=== PATIENT | male | born 1970 | race Caucasian/White ===

== ENCOUNTER 2019-12-26 14:17 | Inpatient (IN) ==
[2019-12-26 15:07] LABS: Basophils # (auto) 0.02 K/uL (0-0.2); Basophils % (auto) 0.3 %; Eosinophils # (auto) 0.04 K/uL (0-0.5); Eosinophils % (auto) 0.7 %; Hematocrit (blood only) 39.5 % (42-52); Hemoglobin 13.7 g/dL (14.0-18.0); Immature Granulocytes # (auto) 0.02 K/uL (0.00-0.02); Immature Granulocytes % (auto) 0.3 %; Lymphocytes # (auto) 1.53 K/uL (1.2-3.4); Lymphocytes % (auto) 26.6 %; Mean Corpuscular Hemoglobin 30.6 pg (25-34); Mean Corpuscular Hgb Conc 34.7 g/dL (32-36); Mean Corpuscular Volume 88.4 fL (80-100); Mean Platelet Volume 9.4 fL (7.4-10.4); Monocytes # (auto) 0.32 K/uL (0.11-0.59); Monocytes % (auto) 5.6 %; Neutrophils # (auto) 3.83 K/uL (1.4-6.5); Neutrophils % (auto) 66.5 %; Platelet Count 184 K/uL (130-400); RDW Coefficient of Variation 13.5 % (11.5-14.5); RDW Standard Deviation 43.6 fL (36.4-46.3); Red Blood Count 4.47 M/uL (4.7-6.1); White Blood Count 5.76 K/uL (4.8-10.8)
[2019-12-26 15:18] LABS: INR 1.1 (0.9-1.1); Partial Thromboplastin Ratio 0.9; Partial Thromboplastin Time 26.3 Seconds (21.0-31.0); Prothrombin Time 11.5 Seconds (9.0-12.0)
[2019-12-26 15:26] LABS: Alanine Aminotransferase 31 U/L (12-78); Albumin Level 3.9 gm/dl (3.4-5.0); Aspartate Aminotransferase 16 U/L (15-37); BUN Creatinine Ratio 19.8 (10-20); Blood Urea Nitrogen 17 mg/dl (7-18); Calcium 8.6 mg/dl (8.5-10.1); Carbon Dioxide 29 mmol/L (21-32); Chloride 104 mmol/L (98-107); Creatinine Clr Calc Pharmacy 125.8 ml/min; Est GFR (Non-African American) 103.5; Glucose 164 mg/dl (70-99); Magnesium 1.7 mg/dl (1.8-2.4); Potassium 3.6 mmol/L (3.5-5.1); Sodium 139 mmol/L (136-145)
[2019-12-26 15:31] LABS: Albumin Globulin Ratio 1.1 (0.9-2); Alkaline Phosphatase 66 U/L (45-117); Bilirubin,Total 0.8 mg/dl (0.2-1); Globulin 3.5 gm/dl (2.5-4.0); Total Protein 7.4 gm/dl (6.4-8.2); Troponin I < 0.015 ng/ml (0-0.045)
[2019-12-26] MEDS ORDERED: OPTIRAY 320 125ml IV ONE (16:01)
--- NOTE | 2019-12-26 16:34 | CT Scan Report ---
CT OF THE HEAD WITHOUT CONTRAST CLINICAL HISTORY: Stroke evaluation. Fall. COMPARISON STUDY: No previous studies for comparison. CT DOSE: 1135.61 mGy.cm TECHNIQUE: Helical axial images of the head were obtained without IV contrast. Automated exposure con trol was utilized for the study. A dose lowering technique was utilized adhering to the principles o f ALARA. FINDINGS: No acute intracranial hemorrhage, midline shift or mass effect is present. Ventricular syst em is unremarkable. The basilar cisterns are patent. There are no extra axial collections. Mild white matter hypodensities are present. In addition, there is a 2 x 0.7 cm hypodensity within the left cor yuni radiata which may involve a small portion of the body of the left caudate nucleus. This is shown on axial image 16 of 28. There are no significant calvarial abnormalities. IMPRESSION: 1. No acute intracranial hemorrhage. 2. 2 x 0.7 cm hypodensity within the left kate radiata which favors an acute to subacute infarct. N o mass effect. This could be assessed with an MRI of the brain if indicated. Findings discussed with Dr. Bird at time of dictation. ACT 112: Negative or not required by law. Electronically signed by: Paramjit Sloan M.D. 12/26/2019 4:33 PM
--- NOTE | 2019-12-26 16:44 | CT Scan Report ---
CT ANGIOGRAPHY OF THE NECK WITH CONTRAST CLINICAL HISTORY: Stroke evaluation. COMPARISON STUDY: No previous studies for comparison. Technique: CT angiography of the carotid and vertebral arteries was obtained using [employer] 320 IV and 3D reconstruction on an independent workstation. NASCET criteria was utilized. Automated exposure c ontrol was utilized for the study. A dose lowering technique was utilized adhering to the principles of ALARA. Findings: The left vertebral artery is dominant. There is no stenosis within the bilateral vertebral arteries. No dissection is noted. Note is made of moderate noncalcified plaque within the distal left common carotid artery without significant stenosis. There is mild calcified and noncalcified plaque within the proximal left internal carotid artery without stenosis. No intraluminal thrombus is identi fied. No stenosis within the right common carotid or cervical internal carotid artery is noted. The C TA of the head will be reported separately. IMPRESSION: 1. Mild to moderate noncalcified plaque within the distal left common carotid and proximal left inter nal carotid arteries without stenosis. 2. No dissection. 3. Patent bilateral vertebral arteries. ACT 112: Negative or not required by law. Electronically signed by: Paramjit Sloan M.D. 12/26/2019 4:43 PM
--- NOTE | 2019-12-26 16:48 | CT Scan Report ---
CTA ANGIOGRAPHY OF THE HEAD CLINICAL HISTORY: Stroke evaluation. COMPARISON STUDY: No previous studies for comparison. TECHNIQUE: Helical axial images of the head were obtained following uneventful intravenous administr ation of Optiray 320. Sagittal and coronal reconstructions were viewed as well as maximal intensity p rojections on an independent 3-D workstation. Automated exposure control was utilized for the study. A dose lowering technique was utilized adhering to the principles of ALARA. FINDINGS: Please note that the head CT will be reported separately. A 2 cm hypodensity within the lef t kate radiata is better depicted on the head CT. The ventricular system is normal. No acute intrac ranial hemorrhage, midline shift or mass effect is present. The bilateral M1, M2, A1 and A2 segments are patent. No intracranial aneurysm is identified. There is no central vessel occlusion. History cir culation is intact. IMPRESSION: 1. No central vessel occlusion. Patent intracranial vessels. 2. 2 cm hypodensity within the left kate radiata which favors an acute to subacute infarct, better depicted on head CT. ACT 112: Negative or not required by law. Electronically signed by: Paramjit Sloan M.D. 12/26/2019 4:46 PM
[2019-12-26] MEDS ORDERED: PHARMACIST DISCHARGE MED REC CONSULT PRN (18:26)
[2019-12-26] MEDS ORDERED: ACETAMINOPHEN 325 MG TAB PO PRN (18:26)
--- NOTE | 2019-12-26 18:29 | History & Physical Report ---
Date of Service December 26, 2019 Assessment & Plan (1) CVA (cerebral vascular accident): - Admit to med surg with tele - CT of the head reviewed showing 2 x 0.7 cm hypodensity within the left kate radiata which favors acute to subacute infarct - Stroke order set completed - PT/OT consults - Speech therapy and dysphagia screening - Neuro consulted -Dr. Fritz - Neuro checks per protocol - Check A1C and lipid panel with am labs - Checking MRI wo contrast - CT angio neck showed moderate noncalcified plaque within the distal left common carotid and proximal left internal carotid arteries without stenosis - UA negative (2) Type 2 diabetes mellitus: - Checking A1C and lipid panel with am labs - Continue glargine 12 U HS, ISS with accuchecks achs - Allow diet after passes dysphagia eval (3) Diabetic peripheral neuropathy: - Cont gabapentin 300 mg HS (4) Hypertension: - Allow for permissive htn - Will hold lisinopril/hctz DVT ppx: - teds, scds CODE: Full Dispo: From home, likely to remain in the hospital x 1-2 days History of Present Illness Primary Care Provider: Amauri Null DO This is a 48 yo M with PMHx of HTN, DM II, tobacco use with cigars once weekly, peripheral neuropathy, obesity who presents with left sided weakness which began yesterday afternoon around 3 PM. He noticed that his boot turner strength was poor, unsteady gait, and by evening felt that he was not able to speak nearly at all. He came directly home from work and went to sleep. He lives at home with his mother who is present at bedside today. She reports having to wake him up around 830 and that he was on able to speak without slowed and slurred speech. He had difficulty getting up and out of bed today and thus she brought him to the ER. He reports his symptoms have improved since waking up today and that he is able to move his arm and his leg without much difficulty but feels weakness compared to his baseline. His speech is slowed but he is able to make full complete sentences, he occasionally has word finding issues, no word salad. No changes in vision, no headache, and no other acute complaints. Allergies Allergy/AdvReac Type Severity Reaction Status Date / Time No Known Allergies Allergy Verified 12/26/19 15:48 Home Medications Home Medications Medication Instructions Recorded Confirmed Type esomeprazole magnesium 20 mg 20 mg PO DAILY 08/16/19 12/26/19 History capsule,delayed release ibuprofen 200 mg capsule 200 - 400 mg PO Q6H PRN 08/16/19 12/26/19 History multivitamin 1 tab PO DAILY 08/16/19 12/26/19 History blood sugar diagnostic #100 ea 09/23/19 12/22/19 Rx 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 meter #1 ea 09/23/19 12/22/19 Rx lancets 33 gauge #100 ea 09/23/19 12/22/19 Rx lisinopril 20 1 tab PO DAILY #30 tab 10/21/19 12/26/19 Rx mg-hydrochlorothiazide 25 mg tablet BD Ultra-Fine Mini Pen Needle 31 #100 ea NS 11/10/19 12/22/19 Rx gauge x 3/16" metformin 500 mg tablet,extended 1,000 mg PO BID #120 tab 11/10/19 12/26/19 Rx release 24 hr insulin glargine 100 unit/mL (3 12 unit SUBCUT DAILY #15 ml 11/26/19 12/26/19 Rx mL) subcutaneous pen gabapentin 300 mg capsule 300 mg PO HS #30 cap 12/02/19 12/26/19 Rx duloxetine 30 mg capsule,delayed 30 mg PO DAILY #30 cap 12/22/19 12/26/19 Rx release bismuth subsalicylate 0 mg PO QID PRN 12/26/19 12/26/19 History [Pepto-Bismol] Past Med/Surg History Medical History (Updated 12/26/19 @ 20:14 by Austin Bird) Atypical nevus of back Diabetic peripheral neuropathy Elevated BP without diagnosis of hypertension Hypertension Insomnia Multiple acquired skin tags Paresthesia of both feet Paresthesia of hand, bilateral Sleep apnea (~2009) Type 2 diabetes mellitus Uncontrolled type 2 diabetes mellitus Surgical History History of excision of lesion (09/06/19) Excision of lesion mid back 09/06/19 Dr. Kenney in clinic History of tonsillectomy and adenoidectomy Family History Grandmother (Maternal) Breast cancer Father , Age 64 Heart disease Myocardial infarction Grandfather (Maternal) Prostate cancer Pancreatic cancer Sister Anxiety Brother Heart disease Denies family history of Ovarian cancer Lung cancer Social History Smoking Status: Current some day smoker Tobacco Type: Cigars Cigarettes Per Day: one cigar a week; Do You Dip or Chew Tobacco: No; Hx Alcohol Use: Yes Alcohol type: hard liquor Hx Substance Use: No Preferred Language: Qatari Communication Ability: Effective Visual Impairment: Limited Hearing Ability: Normal [employer] Trader Required: No Beliefs That Will Affect Care: None marital status: Current Living Situation: Parent Current Living Situation Comment: Lives with mom and older brother current occupational status: employed current occupation: [employer] Feels Safe at Home: Yes Safety Concerns: Feels Safe At This Time caffeine: Yes Dental Care, Regularly: No Physical Activity Frequency: Does not Exercise 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 Seatbelt Use: always Sunscreen Use: Yes Do you think of yourself as: straight/heterosexual Sexual Activity: has been sexually active within the last 12 months Assistive Devices: CPAP and Glasses Review of Systems Review of Systems: Constitutional: No fever, sweats or chills, + unsteady gait Eyes: No diplopia, no worsening or blurred vision ENT: normal hearing, no trouble swallowing, + slurred and slowed speech Respiratory: No cough, sputum, dyspnea at rest or on exertion Cardiovascular: No chest pain, tightness or palpitations Abdomen: No pain, nausea, vomiting, diarrhea or constipation Musculoskeletal: No joint pain, calf pain, swelling Neurologic: + LUE and LLE weakness, +unsteady gait, slurred and slowed speech, inability to talk last night has now improved where he can speak in sentances, no numbness/tingling Psychiatric: +depression, recently started cymbalta Skin: No rash or itch Physical Exam Physical Exam: General: awake, alert, no apparent distress Head: Normocephalic, atraumatic ENT: PERRL, EOMI, no pharyngeal exudate, mucous membranes moist Chest: Clear to auscultation, on room air, no adventitious breath sounds Cardiac: Regular rate and rhythm, no murmur, no JVD, normal peripheral pulses, good capillary refill Abdominal: NABS x 4 quadrants, soft, nondistended, nontender to palpation, no rebound or guarding Extremities: Normal inspection, no peripheral edema or erythema, calfs nontender to palpation Psych: Normal mood and affect Neuro: AAO x 3, strength LUE 4/5 vs RUE 5/5, LLE 4/5 vs RLE 5/5, and rated 5/5, slowed rapid alternating movements with left hand vs right, dexterity of fingers slowed with left, shoulder shrug strenght in L<R. negative pronator drift, can complete heel to mcknight testing without issues. speech is slurred at times and slow, no peripheral sensory deficits Constitutional: WD/WN, vitals as above Eyes: normal visual stewart by confrontation and + anicteric sclerae Neck: normal visual inspection and trachea midline Respiratory: normal respiratory effort, lungs clear to auscultation Cardiovascular: Rate/Rhythm: regular rate and regular rhythm Gastrointestinal (Abdomen): Inspection/Auscultation: abdomen not distended Percussion/Palpation: abdomen soft; abdomen nontender Musculoskeletal: Head/Neck/Chest: normocephalic and head atraumatic Neg for peripheral LE edema, + pedal pulses Skin: no rashes, warm and dry Neurologic: awake; not confused Speech / Cognition: + abnormal speech (slight slurring, answers are appropriate) Moving R UE, but sluggish overall Psychiatric: A+Ox3, euthymic affect Lymphatic: Exam as done by Jaquelin Schuler DO Results & Data Results & Data ([facility]) Vital Signs (Past 12 Hours) Vital Signs Temp Pulse Pulse Resp BP BP Pulse Ox 12/26/19 18:03 78 12 132/81 97 12/26/19 16:12 71 12 95 12/26/19 15:50 75 18 95 12/26/19 15:40 90 16 94 12/26/19 15:30 78 15 118/82 95 12/26/19 15:20 85 20 98 12/26/19 15:10 88 16 97 12/26/19 15:00 88 16 133/73 12/26/19 14:50 87 12 12/26/19 14:40 84 13 12/26/19 14:32 81 15 12/26/19 14:30 76 16 148/89 H 12/26/19 14:21 36.4 C L 95 H 17 132/[address] OF THE HEAD WITHOUT CONTRAST CLINICAL HISTORY: Stroke evaluation. Fall. COMPARISON STUDY: No previous studies for comparison. CT DOSE: 1135.61 mGy.cm TECHNIQUE: Helical axial images of the head were obtained without IV contrast. Automated exposure control was utilized for the study. A dose lowering technique was utilized adhering to the principles of ALARA. FINDINGS: No acute intracranial hemorrhage, midline shift or mass effect is present. Ventricular system is unremarkable. The basilar cisterns are patent. There are no extra axial collections. Mild white matter hypodensities are present. In addition, there is a 2 x 0.7 cm hypodensity within the left kate radiata which may involve a small portion of the body of the left caudate nucle us. This is shown on axial image 16 of 28. There are no significant calvarial abnormalities. IMPRESSION: 1. No acute intracranial hemorrhage. 2. 2 x 0.7 cm hypodensity within the left kate radiata which favors an acute to subacute infarct. No mass effect. This could be assessed with an MRI of the brain if indicated. Findings discussed with Dr. Bird at time of dictation. CTA ANGIOGRAPHY OF THE HEAD CLINICAL HISTORY: Stroke evaluation. COMPARISON STUDY: No previous studies for comparison. TECHNIQUE: Helical axial images of the head were obtained following uneventful intravenous administration of Optiray 320. Sagittal and coronal reconstructions were viewed as well as maximal intensity projections on an independent 3-D workstation. Automated exposure control was utilized for the study. A dose lowering technique was utilized adhering to the principles of ALARA. FINDINGS: Please note that the head CT will be reported separately. A 2 cm hypodensity within the left kate radiata is better depicted on the head CT. The ventricular system is normal. No acute intracranial hemorrhage, midline shift or mass effect is present. The bilateral M1, M2, A1 and A2 segments are patent. No intracranial aneurysm is identified. There is no central vessel occlusion. History circulation is intact. IMPRESSION: 1. No central vessel occlusion. Patent intracranial vessels. 2. 2 cm hypodensity within the left kate radiata which favors an acute to subacute infarct, better depicted on head CT. CT ANGIOGRAPHY OF THE NECK WITH CONTRAST CLINICAL HISTORY: Stroke evaluation. COMPARISON STUDY: No previous studies for comparison. Technique: CT angiography of the carotid and vertebral arteries was obtained using Optiray 320 IV and 3D reconstruction on an independent workstation. NASCET criteria was utilized. Automated exposure control was utilized for the study. A dose lowering technique was utilized adhering to the principles of ALARA. Findings: The left vertebral artery is dominant. There is no stenosis within the bilateral vertebral arteries. No dissection is noted. Note is made of moderate noncalcified plaque within the distal left common carotid artery without significant stenosis. There is mild calcified and noncalcified plaque within the proximal left internal carotid artery without stenosis. No intraluminal thrombus is identified. No stenosis within the right common carotid or cervical internal carotid artery is noted. The CTA of the head will be reported separately. IMPRESSION: 1. Mild to moderate noncalcified plaque within the distal left common carotid and proximal left internal carotid arteries without stenosis. 2. No dissection. 3. Patent bilateral vertebral arteries. ECG Additional Comments: 26-DEC-2019 15:07:20 [facility]-EDSTAT ROUTINE RETRIEVAL Normal sinus rhythm Cannot rule out Anterior infarct , age undetermined Abnormal ECG No previous ECGs available 25mm/s 10mm/mV 150Hz 9.0.9 12SL 241 BRAD: 11 Referred by: REFERRED SELF Unconfirmed Vent. rate 77 BPM SC interval 140 ms QRS duration 94 ms QT/QTc 364/411 ms P-R-T axes 46 72 46 Code Status & VTE Plan Code Status Full code - discussed with pt at bedside Supervising Physician Co-Signing Physician Notes Pt seen and examined by me. Denies chest pain or SOB. Tolerating PO without issue. Pt, pt's mother, and nursing all feel that pt's speech and use of R UE are improving since arrival to the ED. Agree with HPI/ROS as noted by PA See above for my exam in PE section Agree with plan as outlined above CVA noted on CT MRI pending No stenosis, but plaques noted on CTA head/neck Neuro c/s Aspirin, plavix DM, states 164 is low for him A1c, lipids pending PG Care Time/CCT Total # of Minutes Spent Total Time Spent with Patient: Total time spent is greater than 50% in coordination of care (as documented) at patient's floor/unit and/or counseling patient: Coding Level of Care Code 12507 Initial Inpt Care Lvl 3 Diagnoses CVA (cerebral vascular accident) I63.9 Type 2 diabetes mellitus E11.9 Diabetic peripheral neuropathy E11.42 Hypertension I10
[2019-12-26] MEDS ORDERED: DEXTROSE 50% 50 ML SYRINGE IV PRN (18:31)
[2019-12-26] MEDS ORDERED: GLUCAGON FOR INJ 1 MG VIAL SQ PRN (18:31)
[2019-12-26] MEDS ORDERED: GLUCOSE 40% GEL 15 GM TUBE PO PRN (18:31)
[2019-12-26] MEDS ORDERED: GLUCOSE 10 TABS/TUBE PO PRN (18:31)
[2019-12-26] MEDS ORDERED: CARBOHYDRATES FOR HYPOGLYCEMIA PO PRN (18:31)
[2019-12-26] MEDS ORDERED: ASPIRIN CHEW 324 MG PO STA (18:39)
[2019-12-26] MEDS ORDERED: CLOPIDOGREL BISULFATE 300 MG TAB PO STA (18:39)
--- NOTE | 2019-12-26 20:13 | Emergency Department Note ---
History of Present Illness General Chief complaint: Stroke/CVA Symptoms Stated complaint: stroke symtoms Time Seen by Provider: 12/26/19 14:30 History of Present Illness Provider complaint: Difficulty speaking Onset (ago): hour(s) (21.5) Maximum Pain Intensity: 5 Current Pain Intensity: 0 Associated symptoms: no fever/chills, no headaches, no nausea/vomiting and no seizure 48-year-old male presents emergency department for strokelike symptoms. Patient reports yesterday at 5 PM he noticed he was having difficulty speaking and right upper extremity weakness. He states he thought that his symptoms were due to his him recently starting Cymbalta yesterday. He denies any falls. He denies any fevers. He denies any seizures. Patient is not on any blood thinners. Home Medications Home Medications Medication Instructions Recorded Confirmed Type esomeprazole magnesium 20 mg 20 mg PO DAILY 08/16/19 12/26/19 History capsule,delayed release ibuprofen 200 mg capsule 200 - 400 mg PO Q6H PRN 08/16/19 12/26/19 History multivitamin 1 tab PO DAILY 08/16/19 12/26/19 History blood sugar diagnostic #100 ea 09/23/19 12/22/19 Rx 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 meter #1 ea 09/23/19 12/22/19 Rx lancets 33 gauge #100 ea 09/23/19 12/22/19 Rx lisinopril 20 1 tab PO DAILY #30 tab 10/21/19 12/26/19 Rx mg-hydrochlorothiazide 25 mg tablet BD Ultra-Fine Mini Pen Needle 31 #100 ea NS 11/10/19 12/22/19 Rx gauge x 3/16" metformin 500 mg tablet,extended 1,000 mg PO BID #120 tab 11/10/19 12/26/19 Rx release 24 hr insulin glargine 100 unit/mL (3 12 unit SUBCUT DAILY #15 ml 11/26/19 12/26/19 Rx mL) subcutaneous pen gabapentin 300 mg capsule 300 mg PO HS #30 cap 12/02/19 12/26/19 Rx duloxetine 30 mg capsule,delayed 30 mg PO DAILY #30 cap 12/22/19 12/26/19 Rx release bismuth subsalicylate 0 mg PO QID PRN 12/26/19 12/26/19 History [Pepto-Bismol] Allergies Allergy/AdvReac Type Severity Reaction Status Date / Time No Known Allergies Allergy Verified 12/26/19 15:48 Past Med/Surg History Medical History (Updated 12/26/19 @ 20:14 by Austin Bird) Atypical nevus of back Diabetic peripheral neuropathy Elevated BP without diagnosis of hypertension Hypertension Insomnia Multiple acquired skin tags Paresthesia of both feet Paresthesia of hand, bilateral Sleep apnea (~2009) Type 2 diabetes mellitus Uncontrolled type 2 diabetes mellitus Surgical History History of excision of lesion (09/06/19) Excision of lesion mid back 09/06/19 Dr. Kenney in clinic History of tonsillectomy and adenoidectomy Family History Grandmother (Maternal) Breast cancer Father , Age 64 Heart disease Myocardial infarction Grandfather (Maternal) Prostate cancer Pancreatic cancer Sister Anxiety Brother Heart disease Denies family history of Ovarian cancer Lung cancer Social History Smoking Status: Current every day smoker Tobacco Type: Cigars Hx Alcohol Use: Yes Alcohol type: beer and hard liquor Hx Substance Use: Yes (recently tried marijuana to sleep ) Preferred Language: Bahraini Communication Ability: Effective Visual Impairment: Limited Hearing Ability: Normal Fingerprinter Required: No marital status: Current Living Situation: Family current occupational status: employed 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[employer] Feels Safe at Home: Yes caffeine: Yes Dental Care, Regularly: No Physical Activity Frequency: Does not Exercise 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 Seatbelt Use: always Sunscreen Use: Yes Do you think of yourself as: straight/heterosexual Sexual Activity: has been sexually active within the last 12 months Review of Systems A total of 10 systems reviewed and were otherwise negative Physical Exam Vital Signs Vital Signs - 24 hr 12/26/19 14:21 12/26/19 14:30 12/26/19 14:32 Temperature 36.4 C L Temperature Source Oral Pulse Rate 95 H 76 81 Pulse Rate [Right Finger] Pulse Rate from SpO2 Sensor Respiratory Rate 17 16 15 Respiratory Effort / Characteristics Respiratory Depth Blood Pressure 132/87 148/89 H Blood Pressure [Right Arm] Blood Pressure Mean 102 101 Blood Pressure Mean [Right Arm] Pulse Oximetry 96 Oxygen Delivery Method Room Air Oxygen Flow Rate Sepsis Recent Fever Within 48 Hours No Sepsis New/Unexplained Change in Mental Status N/A Sepsis Action Taken by Nursing No Action Required 12/26/19 14:40 12/26/19 14:50 12/26/19 15:00 Temperature Temperature Source Pulse Rate 84 87 88 Pulse Rate [Right Finger] Pulse Rate from SpO2 Sensor Respiratory Rate 13 12 16 Respiratory Effort / Characteristics Respiratory Depth Blood Pressure 133/73 Blood Pressure [Right Arm] Blood Pressure Mean 105 Blood Pressure Mean [Right Arm] Pulse Oximetry Oxygen Delivery Method Oxygen Flow Rate Sepsis Recent Fever Within 48 Hours Sepsis New/Unexplained Change in Mental Status Sepsis Action Taken by Nursing 12/26/19 15:10 12/26/19 15:20 12/26/19 15:30 Temperature Temperature Source Pulse Rate 88 85 78 Pulse Rate [Right Finger] Pulse Rate from SpO2 Sensor 87 87 78 Respiratory Rate 16 20 15 Respiratory Effort / Characteristics Respiratory Depth Blood Pressure 118/82 Blood Pressure [Right Arm] Blood Pressure Mean 90 Blood Pressure Mean [Right Arm] Pulse Oximetry 97 98 95 Oxygen Delivery Method Room Air Oxygen Flow Rate 100 Sepsis Recent Fever Within 48 Hours Sepsis New/Unexplained Change in Mental Status Sepsis Action Taken by Nursing 12/26/19 15:40 12/26/19 15:50 12/26/19 16:12 Temperature Temperature Source Pulse Rate 90 75 71 Pulse Rate [Right Finger] Pulse Rate from SpO2 Sensor 87 77 72 Respiratory Rate 16 18 12 Respiratory Effort / Characteristics Respiratory Depth Blood Pressure Blood Pressure [Right Arm] Blood Pressure Mean Blood Pressure Mean [Right Arm] Pulse Oximetry 94 95 95 Oxygen Delivery Method Oxygen Flow Rate Sepsis Recent Fever Within 48 Hours Sepsis New/Unexplained Change in Mental Status Sepsis Action Taken by Nursing 12/26/19 16:20 12/26/19 16:23 12/26/19 16:30 Temperature Temperature Source Pulse Rate 79 73 69 Pulse Rate [Right Finger] Pulse Rate from SpO2 Sensor 77 73 70 Respiratory Rate 22 15 15 Respiratory Effort / Characteristics Respiratory Depth Blood Pressure 132/66 125/73 Blood Pressure [Right Arm] Blood Pressure Mean 81 92 Blood Pressure Mean [Right Arm] Pulse Oximetry 96 95 94 Oxygen Delivery Method Oxygen Flow Rate Sepsis Recent Fever Within 48 Hours Sepsis New/Unexplained Change in Mental Status Sepsis Action Taken by Nursing 12/26/19 16:40 12/26/19 16:50 12/26/19 17:00 Temperature Temperature Source Pulse Rate 69 83 72 Pulse Rate [Right Finger] Pulse Rate from SpO2 Sensor 69 82 74 Respiratory Rate 14 15 14 Respiratory Effort / Characteristics Respiratory Depth Blood Pressure 124/75 Blood Pressure [Right Arm] Blood Pressure Mean 81 Blood Pressure Mean [Right Arm] Pulse Oximetry 95 96 95 Oxygen Delivery Method Oxygen Flow Rate Sepsis Recent Fever Within 48 Hours Sepsis New/Unexplained Change in Mental Status Sepsis Action Taken by Nursing 12/26/19 17:10 12/26/19 17:20 12/26/19 17:30 Temperature Temperature Source Pulse Rate 73 76 71 Pulse Rate [Right Finger] Pulse Rate from SpO2 Sensor 72 76 71 Respiratory Rate 15 15 17 Respiratory Effort / Characteristics Respiratory Depth Blood Pressure 120/78 Blood Pressure [Right Arm] Blood Pressure Mean 95 Blood Pressure Mean [Right Arm] Pulse Oximetry 96 97 96 Oxygen Delivery Method Oxygen Flow Rate Sepsis Recent Fever Within 48 Hours Sepsis New/Unexplained Change in Mental Status Sepsis Action Taken by Nursing 12/26/19 17:40 12/26/19 17:50 12/26/19 18:00 Temperature Temperature Source Pulse Rate 70 73 82 Pulse Rate [Right Finger] Pulse Rate from SpO2 Sensor 71 75 79 Respiratory Rate 15 15 16 Respiratory Effort / Characteristics Respiratory Depth Blood Pressure Blood Pressure [Right Arm] Blood Pressure Mean Blood Pressure Mean [Right Arm] Pulse Oximetry 96 94 96 Oxygen Delivery Method Oxygen Flow Rate Sepsis Recent Fever Within 48 Hours Sepsis New/Unexplained Change in Mental Status Sepsis Action Taken by Nursing 12/26/19 18:01 12/26/19 18:03 12/26/19 18:10 Temperature Temperature Source Pulse Rate 83 79 73 Pulse Rate [Right Finger] 78 Pulse Rate from SpO2 Sensor 83 79 71 Respiratory Rate 12 25 H 14 Respiratory Effort / Characteristics Non-Labored Respiratory Depth Normal Blood Pressure 122/78 132/81 Blood Pressure [Right Arm] 132/81 Blood Pressure Mean 93 90 Blood Pressure Mean [Right Arm] 98 Pulse Oximetry 96 96 94 Oxygen Delivery Method Room Air Oxygen Flow Rate Sepsis Recent Fever Within 48 Hours Sepsis New/Unexplained Change in Mental Status Sepsis Action Taken by Nursing 12/26/19 18:20 Temperature Temperature Source Pulse Rate 75 Pulse Rate [Right Finger] Pulse Rate from SpO2 Sensor 77 Respiratory Rate 18 Respiratory Effort / Characteristics Respiratory Depth Blood Pressure Blood Pressure [Right Arm] Blood Pressure Mean Blood Pressure Mean [Right Arm] Pulse Oximetry 94 Oxygen Delivery Method Oxygen Flow Rate Sepsis Recent Fever Within 48 Hours Sepsis New/Unexplained Change in Mental Status Sepsis Action Taken by Nursing Physical Exam GENERAL: He is oriented to person, place, and time. He appears well-developed and well-nourished. He does not appear distressed. HENT: Exam performed. - Head: Normocephalic and atraumatic. - Right Ear: External ear normal. No mastoid tenderness. - Left Ear: External ear normal. No mastoid tenderness. - Mouth/Throat: The oropharynx is clear and moist. No trismus in the jaw. No dental abscesses or uvula swelling. No oropharyngeal exudate or tonsillar abscesses. EYES: Conjunctivae and EOM are normal. Pupils are equal, round, and reactive to light. Right eye exhibits no discharge. Left eye exhibits no discharge. No scleral icterus. NECK: Normal range of motion. Neck supple. No JVD present. No spinous process tenderness present. No carotid bruit present. No rigidity. No tracheal deviation and normal range of motion present. No Brudzinski's sign and no Kernig's sign noted. CV: Normal rate, regular rhythm, normal heart sounds and intact distal pulses. There is no peripheral edema. Palpable radial pulses bue. PULM/CHEST: Effort normal and breath sounds normal. No respiratory distress. No stridor. He has no wheezes. He has no rales. - Chest Wall: He exhibits no tenderness. ABD: The abdomen is soft. Bowel sounds are normal. He has no distension. No mass is present. There is no tenderness. There is no rebound, no guarding, no Weinstein's sign and no tenderness at McBurney's point. Rovsig negative. MUSC/SKEL: Normal range of motion. There is no peripheral edema, tenderness or deformity. LYMPH: No cervical adenopathy. NEURO: NIHSS: 2 (dysarthria: 1, aphasia: 1). SKIN: Skin is warm and dry. He is not diaphoretic. PSYCH: He has a normal mood and affect. Behavior is normal. Judgment and thought content normal. Course Course 1430: The patient was evaluated in room C12. A complete history and physical exam was performed. Patient symptoms began more than 20 hours ago. Patient is well out of the window for TPA and thus no code stroke was called. Cardiac monitoring: An order was placed for continuous cardiac monitoring. The monitor shows a rate of 80 with sinus rhythm 1700: Vital signs stable. Labs within normal limits. Imaging showed a 2 x 0.7 cm hypodensity in the left kate radiata favoring an acute to subacute infarct. Again, patient is well out of the time window for TPA. CTA of the head and neck are within normal limits. Patient will be loaded with dual platelet therapy and [facility] Schuler will be notified. Administered Medications Discontinued Medications Aspirin (Aspirin Chew 324 Mg) 324 mg PO NOW STA Stop: 12/26/19 18:40 Last Admin: 12/26/19 19:10 Dose: 324 mg Documented by: [id number] Clopidogrel Bisulfate (Clopidogrel Bisulfate 300 Mg Tab) 300 mg PO NOW STA Stop: 12/26/19 18:40 Last Admin: 12/26/19 19:10 Dose: 300 mg Documented by: [id number] Ioversol (Optiray 320 125ml) 120 ml IV ONCE ONE Stop: 12/26/19 16:02 Last Admin: 12/26/19 16:02 Dose: 120 ml Documented by: [id number] Medical Decision Making Laboratory Data Result diagrams: 12/26/19 14:54 12/26/19 14:54 Lab Results 12/26/19 12/26/19 12/26/19 Range/Units 14:54 14:54 14:54 WBC 5.76 (4.8-10.8) K/uL RBC 4.47 L (4.7-6.1) M/uL Hgb 13.7 L (14.0-18.0) g/dL Hct 39.5 L (42-52) % MCV 88.4 (80-100) fL MCH 30.6 (25-34) pg MCHC 34.7 (32-36) g/dL RDW Std Deviation 43.6 (36.4-46.3) fL RDW Coeff of Jennifer 13.5 (11.5-14.5) % Plt Count 184 (130-400) K/uL MPV 9.4 (7.4-10.4) fL Immature Gran % (Auto) 0.3 % Neut % (Auto) 66.5 % Lymph % (Auto) 26.6 % Dale % (Auto) 5.6 % Eos % (Auto) 0.7 % Baso % (Auto) 0.3 % Neut # (Auto) 3.83 (1.4-6.5) K/uL Lymph # (Auto) 1.53 (1.2-3.4) K/uL Dale # (Auto) 0.32 (0.11-0.59) K/uL Eos # (Auto) 0.04 (0-0.5) K/uL Baso # (Auto) 0.02 (0-0.2) K/uL Immature Gran # (Auto) 0.02 (0.00-0.02) K/uL PT 11.5 (9.0-12.0) Seconds INR 1.1 (0.9-1.1) APTT 26.3 (21.0-31.0) Seconds PTT Ratio 0.9 Sodium (136-145) mmol/L Potassium (3.5-5.1) mmol/L Chloride (98-107) mmol/L Carbon Dioxide (21-32) mmol/L Anion Gap (3-11) BUN (7-18) mg/dl Creatinine (0.6-1.4) mg/dl Est Cr Clr Drug Dosing ml/min Est GFR ( Amer) Est GFR (Non-Af Amer) BUN/Creatinine Ratio (10-20) Glucose (70-99) mg/dl Calcium (8.5-10.1) mg/dl Magnesium (1.8-2.4) mg/dl Total Bilirubin (0.2-1) mg/dl AST (15-37) U/L ALT (12-78) U/L Alkaline Phosphatase (45-117) U/L Troponin I (0-0.045) ng/ml Total Protein (6.4-8.2) gm/dl Albumin (3.4-5.0) gm/dl Globulin (2.5-4.0) gm/dl Albumin/Globulin Ratio (0.9-2) Blood Type A Positive Antibody Screen NEGATIVE 12/26/19 Range/Units 14:54 WBC (4.8-10.8) K/uL RBC (4.7-6.1) M/uL Hgb (14.0-18.0) g/dL Hct (42-52) % MCV (80-100) fL MCH (25-34) pg MCHC (32-36) g/dL RDW Std Deviation (36.4-46.3) fL RDW Coeff of Jennifer (11.5-14.5) % Plt Count (130-400) K/uL MPV (7.4-10.4) fL Immature Gran % (Auto) % Neut % (Auto) % Lymph % (Auto) % Dale % (Auto) % Eos % (Auto) % Baso % (Auto) % Neut # (Auto) (1.4-6.5) K/uL Lymph # (Auto) (1.2-3.4) K/uL Dale # (Auto) (0.11-0.59) K/uL Eos # (Auto) (0-0.5) K/uL Baso # (Auto) (0-0.2) K/uL Immature Gran # (Auto) (0.00-0.02) K/uL PT (9.0-12.0) Seconds INR (0.9-1.1) APTT (21.0-31.0) Seconds PTT Ratio Sodium 139 (136-145) mmol/L Potassium 3.6 (3.5-5.1) mmol/L Chloride 104 (98-107) mmol/L Carbon Dioxide 29 (21-32) mmol/L Anion Gap 6.0 (3-11) BUN 17 (7-18) mg/dl Creatinine 0.84 (0.6-1.4) mg/dl Est Cr Clr Drug Dosing 125.8 ml/min Est GFR ( Amer) 120.0 Est GFR (Non-Af Amer) 103.5 BUN/Creatinine Ratio 19.8 (10-20) Glucose 164 H (70-99) mg/dl Calcium 8.6 (8.5-10.1) mg/dl Magnesium 1.7 L (1.8-2.4) mg/dl Total Bilirubin 0.8 (0.2-1) mg/dl AST 16 (15-37) U/L ALT 31 (12-78) U/L Alkaline Phosphatase 66 (45-117) U/L Troponin I < 0.015 (0-0.045) ng/ml Total Protein 7.4 (6.4-8.2) gm/dl Albumin 3.9 (3.4-5.0) gm/dl Globulin 3.5 (2.5-4.0) gm/dl Albumin/Globulin Ratio 1.1 (0.9-2) Blood Type Antibody Screen Imaging Data Radiologist's Impression: CT ANGIOGRAPHY OF THE NECK WITH CONTRAST CLINICAL HISTORY: Stroke evaluation. COMPARISON STUDY: No previous studies for comparison. Technique: CT angiography of the carotid and vertebral arteries was obtained using Optiray 320 IV and 3D reconstruction on an independent workstation. NASCET criteria was utilized. Automated exposure control was utilized for the study. A dose lowering technique was utilized adhering to the principles of ALARA. Findings: The left vertebral artery is dominant. There is no stenosis within the bilateral vertebral arteries. No dissection is noted. Note is made of moderate noncalcified plaque within the distal left common carotid artery without significant stenosis. There is mild calcified and noncalcified plaque within the proximal left internal carotid artery without stenosis. No intraluminal thrombus is identified. No stenosis within the right common carotid or cervical internal carotid artery is noted. The CTA of the head will be reported separately. IMPRESSION: 1. Mild to moderate noncalcified plaque within the distal left common carotid and proximal left internal carotid arteries without stenosis. 2. No dissection. 3. Patent bilateral vertebral arteries. ACT 112: Negative or not required by law. Electronically signed by: Paramjit Sloan M.D. 12/26/2019 4:43 PM Dictated: 12/26/19 [id number]: 12/26/19 1638 CTA ANGIOGRAPHY OF THE HEAD CLINICAL HISTORY: Stroke evaluation. COMPARISON STUDY: No previous studies for comparison. TECHNIQUE: Helical axial images of the head were obtained following uneventful intravenous administration of Optiray 320. Sagittal and coronal reconstructions were viewed as well as maximal intensity projections on an independent 3-D workstation. Automated exposure control was utilized for the study. A dose lowering technique was utilized adhering to the principles of ALARA. FINDINGS: Please note that the head CT will be reported separately. A 2 cm hypodensity within the left kate radiata is better depicted on the head CT. The ventricular system is normal. No acute intracranial hemorrhage, midline shift or mass effect is present. The bilateral M1, M2, A1 and A2 segments are patent. No intracranial aneurysm is identified. There is no central vessel occlusion. History circulation is intact. IMPRESSION: 1. No central vessel occlusion. Patent intracranial vessels. 2. 2 cm hypodensity within the left kate radiata which favors an acute to subacute infarct, better depicted on head CT. ACT 112: Negative or not required by law. Electronically signed by: Paramjit Sloan M.D. 12/26/2019 4:46 PM Dictated: 12/26/19 1643Transcribed: 12/26/191642 CT OF THE HEAD WITHOUT CONTRAST CLINICAL HISTORY: Stroke evaluation. Fall. COMPARISON STUDY: No previous studies for comparison. CT DOSE: 1135.61 mGy.cm TECHNIQUE: Helical axial images of the head were obtained without IV contrast. Automated exposure control was utilized for the study. A dose lowering technique was utilized adhering to the principles of ALARA. FINDINGS: No acute intracranial hemorrhage, midline shift or mass effect is present. Ventricular system is unremarkable. The basilar cisterns are patent. There are no extra axial collections. Mild white matter hypodensities are present. In addition, there is a 2 x 0.7 cm hypodensity within the left kate radiata which may involve a small portion of the body of the left caudate nucleus. This is shown on axial image 16 of 28. There are no significant calvarial abnormalities. IMPRESSION: 1. No acute intracranial hemorrhage. 2. 2 x 0.7 cm hypodensity within the left kate radiata which favors an acute to subacute infarct. No mass effect. This could be assessed with an MRI of the brain if indicated. Findings discussed with Dr. Bird at time of dictation. ACT 112: Negative or not required by law. Electronically signed by: Paramjit Sloan M.D. 12/26/2019 4:33 PM Dictated: 12/26/19 162Transcribed: 12/26/191628 ECG Data Indication: + other (cva) Rate (beats per minute): 77 Rhythm: + normal sinus ECG Intervals/blocks: + Normal QRS, + Normal FL and + Normal QT-c ECG ST segments: + Normal ST segments MDM Narrative 1430: The patient was evaluated in room C12. A complete history and physical exam was performed. Patient symptoms began more than 20 hours ago. Patient is well out of the window for TPA and thus no code stroke was called. Cardiac monitoring: An order was placed for continuous cardiac monitoring. The monitor shows a rate of 80 with sinus rhythm 1700: Vital signs stable. Labs within normal limits. Imaging showed a 2 x 0.7 cm hypodensity in the left kate radiata favoring an acute to subacute infarct. Again, patient is well out of the time window for TPA. CTA of the head and neck are within normal limits. Patient will be loaded with dual platelet therapy and [facility] Schuler will be notified. Impression & Plan Cerebrovascular accident Discharge Plan Visit Data Chief Complaint: Stroke/CVA Symptoms Stated Complaint: stroke symtoms ED Provider: Austin Bird Discharge Problem: Cerebrovascular accident Patient Disposition: Admitted As Inpatient Discharge Instructions Interventions: ED Discharge Assessment Last Done: 12/26/19 19:46 Discharge Problem: Cerebrovascular accident Qualifiers: CVA mechanism: unspecified Qualified Code(s): I63.9 - Cerebral infarction, uns pecified
[2019-12-26] MEDS ORDERED: PNEUMOCOCCAL POLYSACCHARIDES 25 MCG/0.5 ML VIAL/SYR IM ONE (20:33)
[2019-12-26] MEDS ORDERED: PNEUMOCOCCAL ADMINISTRATION CHARGE ONE (20:33)
[2019-12-26] MEDS ORDERED: Nursing to Pharmacy Communication SCH (21:45)
[2019-12-26] MEDS: GABAPENTIN 300 MG CAP PO SCH (21:51)
[2019-12-26] MEDS: INSULIN ASPART 100 UNITS/ML 3 ML PEN SC SCH (22:24)
[2019-12-27] MEDS ORDERED: INSULIN ASPART 100 UNITS/ML 3 ML PEN SC SCH
[2019-12-27 06:50] LABS: Basophils # (auto) 0.03 K/uL (0-0.2); Basophils % (auto) 0.5 %; Eosinophils # (auto) 0.11 K/uL (0-0.5); Eosinophils % (auto) 1.7 %; Hematocrit (blood only) 40.8 % (42-52); Hemoglobin 13.9 g/dL (14.0-18.0); Immature Granulocytes # (auto) 0.02 K/uL (0.00-0.02); Immature Granulocytes % (auto) 0.3 %; Lymphocytes # (auto) 2.56 K/uL (1.2-3.4); Lymphocytes % (auto) 40.4 %; Mean Corpuscular Hemoglobin 30.5 pg (25-34); Mean Corpuscular Hgb Conc 34.1 g/dL (32-36); Mean Corpuscular Volume 89.7 fL (80-100); Mean Platelet Volume 9.6 fL (7.4-10.4); Monocytes # (auto) 0.42 K/uL (0.11-0.59); Monocytes % (auto) 6.6 %; Neutrophils # (auto) 3.19 K/uL (1.4-6.5); Neutrophils % (auto) 50.5 %; Platelet Count 189 K/uL (130-400); RDW Standard Deviation 45.7 fL (36.4-46.3); Red Blood Count 4.55 M/uL (4.7-6.1); White Blood Count 6.33 K/uL (4.8-10.8)
--- NOTE | 2019-12-27 07:13 | Magnetic Resonance Report ---
MR brain wo con HISTORY: 48 years-old Male Eval CVA in L kate radiata acute right-sided weakness with dizziness an d strokelike symptoms. COMPARISON: CT head, CTA head and neck studies of same day TECHNIQUE: Multiplanar multisequence MRI of the brain was obtained without the use of IV contrast. FINDINGS: 2.2 x 1.1 cm area of restricted diffusion involves the kate radiata left frontal lobe with decrease d signal on the ADC map. This finding demonstrates mildly increased T2/FLAIR signal measuring up to a pproximately 10 mm in craniocaudal dimension. Midline structures including the corpus callosum, brain stem, optic chiasm, pituitary and pineal glands appear unremarkable in sagittal T1 series. No cerebel lar tonsillar herniation. No acute intracranial hemorrhage, midline shift, abnormal extra-axial collection, hydrocephalus or in tracranial mass. No pathologic blooming artifact on the T2 star series. Cerebral venous sinuses and m ajor arterial flow voids at the level of the skull base appear patent. Paranasal sinuses mastoid air cells are generally clear. The skull, orbits and soft tissues are within normal limits. IMPRESSION: 1. Acute versus subacute infarct involves the kate radiata of the left frontal lobe measuring up to 2.2 x 1.1 cm. 2. There is no significant mass effect, midline shift or acute intracranial hemorrhage. ACT 112: Negative or not required by law. The above report was generated using voice recognition software. It may contain grammatical, syntax o r spelling errors. Electronically signed by: Matias Mccormick M.D. 12/27/2019 7:12 AM
[2019-12-27 07:15] LABS: Est GFR (African American) 95.7; Potassium 3.8 mmol/L (3.5-5.1)
[2019-12-27 07:16] LABS: BUN Creatinine Ratio 16.6 (10-20); Creatinine Clr Calc Pharmacy 99.7 ml/min; Est GFR (Non-African American) 82.6
[2019-12-27] MEDS: INSULIN ASPART 100 UNITS/ML 3 ML PEN SC SCH ×4 (08:21→20:50)
[2019-12-27] MEDS: INSULIN GLARGINE SOLOSTAR 100 UNITS/ML 3 ML PEN SQ SCH (08:25)
[2019-12-27] MEDS: MULTIVITAMIN TAB PO SCH (08:39)
[2019-12-27] MEDS: DULoxetine HCL 30 MG CAP PO SCH (08:40)
[2019-12-27] MEDS: PANTOprazole 40 MG TAB PO SCH (08:40)
[2019-12-27] MEDS ORDERED: ASPIRIN 325 MG ECTAB PO SCH (09:00)
[2019-12-27] MEDS ORDERED: ATORVASTATIN 40 MG TAB PO SCH (09:00)
--- NOTE | 2019-12-27 09:01 | Neurology Consultation ---
Date of Consultation December 27, 2019 Assessment & Plan (1) CVA (cerebral vascular accident): (2) Dysarthria: (3) Acute right hemiparesis: (4) Diabetic peripheral neuropathy: patient has an acute left kate radiata had a stroke of a medium-sized ( 2 x 1 cm) resulting in mild right susan paresis, dysarthria, and possibly some mild motor aphasia / word-finding. However, he identifies objects and reads words and phrases well. NIHSS was 5. Currently he is stable clinically. CT angiography shows no large vessel issues and I believe this is small vessel ischemic disease with risk factors of hypertension and diabetes. actually, his risk factors include diabetes, hypertension, dyslipidemia, and cigar smoking as well as sleep apnea Patient shows evidence of a polyneuropathy involving predominantly sensory fibers, likely due to diabetes. Recommendations: 1. agree with 81 mg aspirin tablet daily. I do not believe he needs the addition of clopidogrel with the aspirin at this time. 2. control blood pressure as you are doing, aiming for a mean arterial pressure of approximately 95-100. 3. Control glucose, aiming for a hemoglobin A1c of approximately 8. 4. patient would be a high dose statin candidate 5. Physical, occupational, speech therapy consult. This patient may be an excellent candidate for the rehabilitation hospital. 6. continue duloxetine 30 mg in the evening. I do not believe this medication has anything to do with his current stroke problem ( 1st dose was December 24) Overall, I spent a total of 90 minutes with this case including review of records, review of CT and MRI films, direct evaluation the patient at bedside, and discussion of the case with the patient at bedside, the RN at bedside, and Dr. Schuler including differential diagnosis and treatment options. History of Present Illness Reason for Consultation: Patient is a 48-year-old, who I was asked to see at the request of Keri Barnett PA-C, for neurologic consultation regarding stroke. Requesting Physician: Keri Barnett PA-C Attending Physician: Jaquelin Schuler, History of Present Illness This patient has a history of sleep apnea for several years on CPAP as well as paresthesias and numbness in the hands and feet which have been going on for several years. This past summer he was diagnosed with diabetes and hypertension and has been on insulin, metformin, and lisinopril. His hemoglobin A1c was 10.9 in August. The patient was in his usual state of health when approximately 5 p.m. on December 24 (while at work ) he noticed that he was not cutting brain correctly because his right hand was weak. He also could not get words out. He thought it was the duloxetine that he took for the 1st time that day given to him instead of gabapentin for his dysesthesias in the hands and feet. He went home and the next day realized it was not any better in came to the emergency room December 25. He states that he walked in the emergency room with a bit of a limp with a weak right upper extremity and inability to get words correctly. on December 25, at 1421, blood pressure was 132/87, temperature 36.4, respiratory rate 17, pulse 95, and O2 saturation 96%. In the emergency room he was given an NIH stroke scale of 2 because of dy sarthria and aphasia. He was given aspirin 324 mg and Plavix 300 mg 1 time. CBC showed some slight anemia and Chem profile was normal except for glucose of 164. CT scan of the head showed a left kate radiata hypodensity. CT angiography of the head was unremarkable for vascular anomalies or stenosis. CT angiography of the neck showed some plaque without significant stenosis. MRI of the brain showed a 2 cm x 1 cm left kate radiata stroke of an acute/subacute nature. There was some mild old small vessel ischemic changes noted in addition. Patient states that he has been about the same since admission. His right arm and leg seem week any has trouble getting words out. Has a mild bioccipital headache. He denies any new vision issues, new numbness or pain or incontinence. This morning CBC was largely unremarkable and glucose was 123. Triglyceride was elevated to 138 and cholesterol 195. hemoglobin A1c is pending. Allergies Allergy/AdvReac Type Severity Reaction Status Date / Time No Known Allergies Allergy Verified 12/26/19 15:48 Home Medications Home Medications Medication Instructions Recorded Confirmed Type esomeprazole magnesium 20 mg 20 mg PO DAILY 08/16/19 12/26/19 History capsule,delayed release ibuprofen 200 mg capsule 200 - 400 mg PO Q6H PRN 08/16/19 12/26/19 History multivitamin 1 tab PO DAILY 08/16/19 12/26/19 History blood sugar diagnostic #100 ea 09/23/19 12/22/19 Rx 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 meter #1 ea 09/23/19 12/22/19 Rx lancets 33 gauge #100 ea 09/23/19 12/22/19 Rx lisinopril 20 1 tab PO DAILY #30 tab 10/21/19 12/26/19 Rx mg-hydrochlorothiazide 25 mg tablet BD Ultra-Fine Mini Pen Needle 31 #100 ea NS 11/10/19 12/22/19 Rx gauge x 3/16" metformin 500 mg tablet,extended 1,000 mg PO BID #120 tab 11/10/19 12/26/19 Rx release 24 hr insulin glargine 100 unit/mL (3 12 unit SUBCUT DAILY #15 ml 11/26/19 12/26/19 Rx mL) subcutaneous pen gabapentin 300 mg capsule 300 mg PO HS #30 cap 12/02/19 12/26/19 Rx duloxetine 30 mg capsule,delayed 30 mg PO DAILY #30 cap 12/22/19 12/26/19 Rx release bismuth subsalicylate 0 mg PO QID PRN 12/26/19 12/26/19 History [Pepto-Bismol] Patient History Medical History (Updated 12/27/19 @ 08:52 by Neno Forte MD) Atypical nevus of back Diabetic peripheral neuropathy Elevated BP without diagnosis of hypertension Hypertension Insomnia Multiple acquired skin tags Paresthesia of both feet Paresthesia of hand, bilateral Sleep apnea (~2009) Type 2 diabetes mellitus Uncontrolled type 2 diabetes mellitus Surgical History History of excision of lesion (09/06/19) Excision of lesion mid back 09/06/19 Dr. Kenney in clinic History of tonsillectomy and adenoidectomy Family History Grandmother (Maternal) Breast cancer Father , age 62 of an [place]. Heart disease Myocardial infarction Grandfather (Maternal) Prostate cancer Pancreatic cancer Sister Anxiety Brother Heart disease Mother No problems noted. Denies family history of Ovarian cancer Lung cancer Social History Smoking Status: Current some day smoker Tobacco Type: Cigars Cigarettes Per Day: one cigar a week; Do You Dip or Chew Tobacco: No; Hx Alcohol Use: Yes Alcohol type: beer and hard liquor Alcohol Intake Frequency Comment: 1-2 per week Hx Substance Use: No Preferred Language: [place] Communication Ability: Effective Visual Impairment: Limited Hearing Ability: Normal Portuguese Tutor Required: No Beliefs That Will Affect Care: None marital status: Current Living Situation: Parent Current Living Situation Comment: Lives with mom and older brother current occupational status: employed current occupation: [employer] Feels Safe at Home: Yes Safety Concerns: Feels Safe At This Time caffeine: Yes Dental Care, Regularly: No Physical Activity Frequency: Does not Exercise 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 Seatbelt Use: always Sunscreen Use: Yes Do you think of yourself as: straight/heterosexual Sexual Activity: has been sexually active within the last 12 months Assistive Devices: CPAP and Glasses Review of Systems Constitutional: no fever, no fatigue and no weakness Eyes: no diplopia, no eye pain and no worsening vision Ear, Nose, Mouth, Throat: no ear pain, no tinnitus, no hearing loss, no dizziness, no snoring, no hoarseness and no dysphagia Respiratory: no cough and no dyspnea Cardiovascular: no chest pain, no palpitations and no lightheadedness Gastrointestinal: no abdominal pain, no nausea and no vomiting Musculoskeletal: no back pain, no neck pain, no radicular pain, no joint pain and no myalgia Integumentary: no rash and no lesions Neurologic: + localized weakness, + numbness, + headache(s) and + abnormal speech; no gait abnormality, no generalized weakness, no tingling, no tremor(s), no abnormal movements, no confusion and no memory loss Psychiatric: no depression, no irritability, no anxiety, no difficulty concentrating, no confusion and no hallucinations Endocrine: no fatigue and no flushing Hematologic / Lymphatic: no easy bleeding and no easy bruising Allergy / Immunological: no urticaria and no problem reported Exam (Neuro) Physical Exam: The patient is right-handed. The patient is awake, alert, and attentive. Speech Reveals a mild dysarthria and some word-finding difficulties but he can read and name objects. Mentation and thought processes are intact, with orientation to person, place and time, and normal fund of knowledge. Attention and concentration are normal. Mood and affect are normal and appropriate. General appearance and grooming are normal. Short and long-term memory are intact. The discs are sharp with positive venous pulsations bilaterally. There are no exudates, hemorrhages, or blood vessel changes seen. Pupils are 4 mm bilaterally and reactive to light. Extraocular eye muscles are intact without nystagmus. Visual acuity and visual stewart seem normal grossly to confrontation. There are no deficits to sensation in the face in all 3 distributions of the fifth cranial nerve bilaterally. Corneal reflexes are positive bilaterally. Facial strength Seemed reasonable but I think there is a slight facial droop on the right. Hearing seems normal to whisper and finger rub bilaterally. Palate moves well without asymmetry. There is normal sternocleidomastoid and trapezius (shoulder shrug) strength bilaterally. Tongue is midline with good strength bilaterally. Neck has a full range of motion without discomfort. There are no cervical bruits bilaterally. There are no cranial or ocular bruits. Heart is without murmur. There is a regular rhythm and rate. Cervical, thoracic, and lumbar spine are nontender to palpation. Gait was not tested and stance sitting up in bed is poor. With outstretched arms there is A very mild drift on the right. There are no resting, postural, or action tremors. There is no ataxia with finger to nose testing. there is no ataxia with risd-ko-ewle testing. There is Decreased facility in the right hand compared to the left which is Normal. No other abnormal involuntary movements are noted. Motor strength is 4/5 diffusely in the right upper extremity and right lower extremity. The left side is 5/5 diffusely both proximally and distally. The limbs have good tone without rigidity or spasticity. There is no atrophy noted in the muscles. Muscle bulk is normal, there is no tenderness to palpation, no myotonia to percussion, and no fasciculations seen. Sensory examination Reveals a very mild stocking type sensory loss in the feet bilaterally and the hands are spared. there is no asymmetry, neglect, exti nction, sensory loss on the right compared to the left. Reflexes are 2/4 in the biceps, triceps, brachioradialis, and quadriceps tendons bilaterally. Achilles tendon reflexes are absent bilaterally. There is no clonus bilaterally. Toes are downgoing with plantar stimulation bilaterally. Peripheral pulses are present and of normal quality distally in all 4 limbs. There is no peripheral edema noted in the limbs. Results & Data ([facility]) Vital Signs (Past 12 Hours) Vital Signs Temp Pulse Pulse Resp BP BP Pulse Ox 12/27/19 07:47 36.7 C 70 16 107/66 95 12/27/19 07:00 88 12/27/19 03:25 36.5 C 88 20 109/76 97 12/27/19 03:12 80 16 93 12/26/19 23:34 75 12/26/19 23:00 36.4 C L 71 20 118/74 94 12/26/19 22:23 79 16 94 PG Care Time/CCT Total # of Minutes Spent Total Time Spent with Patient: Total time spent is greater than 50% in coordination of care (as documented) at patient's floor/unit and/or counseling patient: Coding Level of Care Code 28720 Inpt Consult Level 5 Diagnoses CVA (cerebral vascular accident) I63.9 Dysarthria R47.1 Acute right hemiparesis G81.91 Diabetic peripheral neuropathy E11.42 Time Spent (min) 90
--- NOTE | 2019-12-27 10:07 | Electrocardiogram Report ---
Test Reason : Blood Pressure : / mmHG Vent. Rate : 077 BPM Atrial Rate : 077 BPM P-R Int : 140 ms QRS Dur : 094 ms QT Int : 364 ms P-R-T Axes : 046 072 046 degrees QTc Int : 411 ms Normal sinus rhythm Cannot rule out Anterior infarct , age undetermined Otherwise normal ECG No previous ECGs available Confirmed by Michel Stringer ([id number]) on 12/27/2019 10:07:46 AM Referred By: REFERRED SELF Confirmed By:Michel Stringer
[2019-12-27 10:25] LABS: Estimated Average Glucose 171 mg/dl; Hemoglobin A1C 7.6 % (4.5-5.6)
[2019-12-27] MEDS: ONDANSETRON INJ 2 MG/ML 2 ML VIAL IV PRN ×2 (11:55→15:39)
--- NOTE | 2019-12-27 16:13 | Hospitalist Progress Note ---
Date of Service December 27, 2019 Assessment & Plan (1) CVA (cerebral vascular accident): - Admit to med surg with tele - CT of the head reviewed showing 2 x 0.7 cm hypodensity within the left kate radiata which favors acute to subacute infarct, MRI is same - Stroke order set completed - PT/OT recs for rehab - ST feels no dietary restrictions for pt, however will need ongoing ST services on d/c - Neuro feels pt is excellent candidate for rehab Also recs for aspirin 81mg - Neuro checks per protocol - CT angio neck showed moderate noncalcified plaque within the distal left common carotid and proximal left internal carotid arteries without stenosis - UA negative (2) Type 2 diabetes mellitus: A1C 7.6 - Continue glargine 12 U HS, ISS with accuchecks achs - Allow diet after passes dysphagia eval Lipids elevated in setting of DM s/p CVA pt with LDL 118, HDL 29, TG 238 Start statin (3) Diabetic peripheral neuropathy: - Cont gabapentin 300 mg HS (4) Hypertension: - Allow for permissive htn - Will hold lisinopril/hctz DVT ppx: - teds, scds CODE: Full Awaiting auth for rehab Admission and Anticipated Discharge Date Admission Date: December 26, 2019 Subjective Pt seen today after PT/OT evals. He states he feels exhausted. Still with some lag of use of R UE, gross and fine. Still with slightly slurred and prolonged speech, but this is much better per pt. Tolerating PO without issue. Pt denies fever, SOB, chest pain, abd pain, n/v/c/d, LE pain or swelling. Mother is not present today. Review of Systems Review of Systems: Pertinent positives and negatives reviewed in HPI--all others negative Physical Exam Constitutional: WD/WN, vitals as above Eyes: normal visual stewart by confrontation and + anicteric sclerae Neck: normal visual inspection and trachea midline Respiratory: normal respiratory effort, lungs clear to auscultation Cardiovascular: Rate/Rhythm: regular rate and regular rhythm Gastrointestinal (Abdomen): Inspection/Auscultation: abdomen not distended Percussion/Palpation: abdomen soft; abdomen nontender Musculoskeletal: Head/Neck/Chest: normocephalic and head atraumatic Skin: no rashes, warm and dry Neurologic: awake; not confused Speech / Cognition: + abnormal speech (slight slurring that is better than yesterday, answers are appropriate) Lifts R UE, but moving slowly. Able to move fingers but with decreased strength Psychiatric: A+Ox3, euthymic affect Results & Data Results & Data ([facility]) Vital Signs (Past 12 Hours) Vital Signs Temp Pulse Pulse Resp BP BP Pulse Ox 12/27/19 15:51 36.4 C L 92 H 16 108/69 93 12/27/19 14:20 91 H 12/27/19 11:28 36.6 C 92 H 16 106/68 95 12/27/19 07:47 36.7 C 70 16 107/66 95 12/27/19 07:00 88 PG Care Time/CCT Total # of Minutes Spent Total Time Spent with Patient: Total time spent is greater than 50% in coordination of care (as documented) at patient's floor/unit and/or counseling patient: Coding Level of Care Code 73890 Subseq Hosp Care Lvl 3 Diagnoses CVA (cerebral vascular accident) I63.9 Type 2 diabetes mellitus E11.9 Diabetic peripheral neuropathy E11.42 Hypertension I10
[2019-12-27] MEDS ORDERED: ATORVASTATIN 40 MG TAB PO ONE (21:00)
[2019-12-27] MEDS: GABAPENTIN 300 MG CAP PO SCH (21:07)
[2019-12-28] MEDS: MULTIVITAMIN TAB PO SCH (08:47)
[2019-12-28] MEDS: DULoxetine HCL 30 MG CAP PO SCH (08:47)
[2019-12-28] MEDS: ASPIRIN 81 MG ECTAB PO SCH (08:47)
[2019-12-28] MEDS: INSULIN GLARGINE SOLOSTAR 100 UNITS/ML 3 ML PEN SQ SCH (08:48)
[2019-12-28] MEDS: PANTOprazole 40 MG TAB PO SCH (08:49)
[2019-12-28] MEDS: INSULIN ASPART 100 UNITS/ML 3 ML PEN SC SCH ×4 (08:50→20:28)
[2019-12-28 09:52] LABS: Basophils # (auto) 0.02 K/uL (0-0.2); Basophils % (auto) 0.3 %; Eosinophils % (auto) 1.6 %; Hematocrit (blood only) 40.5 % (42-52); Hemoglobin 14.2 g/dL (14.0-18.0); Immature Granulocytes # (auto) 0.02 K/uL (0.00-0.02); Immature Granulocytes % (auto) 0.3 %; Lymphocytes # (auto) 2.07 K/uL (1.2-3.4); Lymphocytes % (auto) 32.2 %; Mean Corpuscular Hemoglobin 30.8 pg (25-34); Mean Corpuscular Hgb Conc 35.1 g/dL (32-36); Mean Corpuscular Volume 87.9 fL (80-100); Mean Platelet Volume 9.9 fL (7.4-10.4); Monocytes # (auto) 0.42 K/uL (0.11-0.59); Monocytes % (auto) 6.5 %; Neutrophils # (auto) 3.79 K/uL (1.4-6.5); Neutrophils % (auto) 59.1 %; Platelet Count 210 K/uL (130-400); RDW Coefficient of Variation 13.5 % (11.5-14.5); RDW Standard Deviation 43.6 fL (36.4-46.3); Red Blood Count 4.61 M/uL (4.7-6.1); White Blood Count 6.42 K/uL (4.8-10.8)
[2019-12-28 10:18] LABS: BUN Creatinine Ratio 24.1 (10-20); Calcium 9.1 mg/dl (8.5-10.1); Creatinine Clr Calc Pharmacy 108.6 ml/min; Est GFR (African American) 107.9; Est GFR (Non-African American) 93.1; Potassium 3.4 mmol/L (3.5-5.1)
--- NOTE | 2019-12-28 10:25 | Neurology Progress Note ---
Date of Service December 28, 2019 Assessment & Plan (1) CVA (cerebral vascular accident): (2) Dysarthria: (3) Acute right hemiparesis: (4) Diabetic peripheral neuropathy: patient has an acute left kate radiata had a stroke of a medium-sized ( 2 x 1 cm) resulting in mild right susan paresis, dysarthria, and possibly some mild motor aphasia / word-finding. However, he identifies objects and reads words and phrases well. NIHSS was 5. Currently he is stable clinically , although he has some minor improvements today compared to yesterday. CT angiography shows no large vessel issues and I believe this is small vessel ischemic disease with risk factors of hypertension and diabetes. actually, his risk factors include diabetes, hypertension, dyslipidemia, and cigar smoking as well as sleep apnea Patient shows evidence of a polyneuropathy involving predominantly sensory fibers, likely due to diabetes. Recommendations: 1. continue 81 mg aspirin tablet daily. I do not believe he needs the addition of clopidogrel with the aspirin at this time. 2. control blood pressure as you are doing, aiming for a mean arterial pressure of approximately 95-100. 3. Control glucose, aiming for a hemoglobin A1c of approximately 8. 4. patient would be a high dose statin candidate 5. Physical, occupational, speech therapy consult. This patient may be an excellent candidate for the rehabilitation hospital. 6. continue duloxetine 30 mg in the evening. I do not believe this medication has anything to do with his current stroke problem ( 1st dose was December 24) Overall, I spent a total of 35 minutes with this case including review of records, direct evaluation the patient at bedside, and discussion of the case with the patient at bedside, and the RN at bedside. Admission and Anticipated Discharge Date Admission Date: December 26, 2019 Subjective Patient is walking a little better than yesterday and his up sitting up in the chair. He still feels weak on the right side and is fairly stable. His speech is stable and is still slurred. Nursing reports no new issues problems. Results & Data ([facility]) Vital Signs (Past 12 Hours) Vital Signs Temp Pulse Pulse Resp BP Pulse Ox 12/28/19 07:52 36.7 C 79 16 129/81 95 12/28/19 07:40 84 12/28/19 03:52 36.6 C 79 20 120/77 96 12/27/19 23:58 36.8 C 92 H 20 121/79 96 12/27/19 23:02 92 H Exam (Neuro) Physical Exam: The patient is awake and alert, with normal communication. He has mild to moderate dysarthria but no aphasia expressive or receptive. There is no facial droop of significance and tongue is midline. Extraocular eye muscles are intact without nystagmus. Gait is Slow because of his week right leg. Coordination of the arms is normal without tremor or ataxia. Motor strength is 5/5 in all major muscle groups of the left arm and leg proximally and distally. Strength is 4/5 proximally in the right arm and leg and closer to 5/5 distally in The leg. Distal right upper extremity is 4/5 in has decreased facility and rapid alternating movements. PG Care Time/CCT Total # of Minutes Spent Total Time Spent with Patient: Total time spent is greater than 50% in coordination of care (as documented) at patient's floor/unit and/or counseling patient: Coding Level of Care Code 50220 Subseq Hosp Care Lvl 3 Diagnoses CVA (cerebral vascular accident) I63.9 Dysarthria R47.1 Acute right hemiparesis G81.91 Diabetic peripheral neuropathy E11.42 Time Spent (min) 35
[2019-12-28] MEDS: GABAPENTIN 300 MG CAP PO SCH (20:26)
[2019-12-28] MEDS ORDERED: ATORVASTATIN 40 MG TAB PO SCH (21:00)
--- NOTE | 2019-12-28 22:38 | Hospitalist Progress Note ---
Date of Service December 28, 2019 Assessment & Plan (1) CVA (cerebral vascular accident): -R hemiplegia following CVA Admit to med surg with tele - CT of the head reviewed showing 2 x 0.7 cm hypodensity within the left kate radiata which favors acute to subacute infarct, MRI is same - Stroke order set completed - ST feels no dietary restrictions for pt, however will need ongoing ST services on d/c - Neuro feels pt is excellent candidate for rehab Also recs for aspirin 81mg - Neuro checks per protocol - CT angio neck showed moderate noncalcified plaque within the distal left common carotid and proximal left internal carotid arteries without stenosis - UA negative (2) Type 2 diabetes mellitus: A1C 7.6 - Continue glargine 12 U HS, ISS with accuchecks achs - Allow diet after passes dysphagia eval Start statin (3) Diabetic peripheral neuropathy: - Cont gabapentin 300 mg HS (4) Hypertension: - Allow for permissive htn - Will hold lisinopril/hctz DVT ppx: - teds, scds CODE: Full Awaiting auth for rehab Admission and Anticipated Discharge Date Admission Date: December 26, 2019 Subjective 48 yo male reports having more strength in his right hand. Review of Systems Review of Systems: All systems reviewed & are unremarkable except as noted in HPI & below Physical Exam Physical Exam: Constitutional: WD/WN, vitals as above Eyes: normal visual stewart by confrontation and + anicteric sclerae Neck: normal visual inspection and trachea midline Respiratory: normal respiratory effort, lungs clear to auscultation Cardiovascular: Rate/Rhythm: regular rate and regular rhythm Gastrointestinal (Abdomen): Inspection/Auscultation: abdomen not distended Percussion/Palpation: abdomen soft; abdomen nontender Musculoskeletal: Head/Neck/Chest: normocephalic and head atraumatic Skin: no rashes, warm and dry Neurologic: awake; not confused Speech / Cognition: + abnormal speech (slight slurring that is better than yesterday, answers are appropriate) Lifts R UE, but moving slowly. Able to move fingers but with decreased strength Psychiatric: A+Ox3, euthymic affect Results & Data Results & Data ([facility]) Vital Signs (Past 12 Hours) Vital Signs Temp Pulse Pulse Pulse Resp BP Pulse Ox 12/28/19 20:25 37.0 C 75 14 130/79 92 12/28/19 15:07 83 12/28/19 11:47 36.6 C 88 16 125/81 95 12/28/19 11:31 36.5 C 63 20 134/69 96 PG Care Time/CCT Total # of Minutes Spent Total Time Spent with Patient: Total time spent is greater than 50% in coordination of care (as documented) at patient's floor/unit and/or counseling patient: Coding Level of Care Code 63842 Subseq Hosp Care Lvl 3 Diagnoses CVA (cerebral vascular accident) I63.9 Type 2 diabetes mellitus E11.9 Diabetic peripheral neuropathy E11.42 Hypertension I10 Time Spent (min) 35
[2019-12-29 06:52] LABS: Basophils # (auto) 0.02 K/uL (0-0.2); Basophils % (auto) 0.3 %; Eosinophils # (auto) 0.13 K/uL (0-0.5); Eosinophils % (auto) 1.9 %; Hematocrit (blood only) 39.5 % (42-52); Hemoglobin 13.8 g/dL (14.0-18.0); Immature Granulocytes # (auto) 0.02 K/uL (0.00-0.02); Immature Granulocytes % (auto) 0.3 %; Lymphocytes # (auto) 2.33 K/uL (1.2-3.4); Lymphocytes % (auto) 34.1 %; Mean Corpuscular Hemoglobin 30.7 pg (25-34); Mean Corpuscular Hgb Conc 34.9 g/dL (32-36); Mean Corpuscular Volume 87.8 fL (80-100); Mean Platelet Volume 9.7 fL (7.4-10.4); Monocytes % (auto) 7.3 %; Neutrophils # (auto) 3.83 K/uL (1.4-6.5); Neutrophils % (auto) 56.1 %; Platelet Count 200 K/uL (130-400); RDW Coefficient of Variation 13.5 % (11.5-14.5); RDW Standard Deviation 43.2 fL (36.4-46.3); White Blood Count 6.83 K/uL (4.8-10.8)
[2019-12-29 07:05] LABS: BUN Creatinine Ratio 23.1 (10-20); Calcium 8.9 mg/dl (8.5-10.1); Creatinine Clr Calc Pharmacy 105.3 ml/min; Est GFR (African American) 103.9; Est GFR (Non-African American) 89.7; Potassium 3.4 mmol/L (3.5-5.1)
[2019-12-29] MEDS: MULTIVITAMIN TAB PO SCH (09:00)
[2019-12-29] MEDS: PANTOprazole 40 MG TAB PO SCH (09:00)
[2019-12-29] MEDS: ASPIRIN 81 MG ECTAB PO SCH (09:00)
[2019-12-29] MEDS: DULoxetine HCL 30 MG CAP PO SCH (09:00)
[2019-12-29] MEDS: INSULIN ASPART 100 UNITS/ML 3 ML PEN SC SCH ×3 (09:00→18:28)
[2019-12-29] MEDS: INSULIN GLARGINE SOLOSTAR 100 UNITS/ML 3 ML PEN SQ SCH (12:06)
--- NOTE | 2020-01-06 08:27 | Discharge Summary ---
Date of Service December 29, 2019 Admission HPI Per Admitting Provider This is a 48 yo M with PMHx of HTN, DM II, tobacco use with cigars once weekly, peripheral neuropathy, obesity who presents with left sided weakness which began yesterday afternoon around 3 PM. 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 He came directly home from work and went to sleep. He lives at home with his mother who is present at bedside today. She reports having to wake him up around 830 and that he was on able to speak without slowed and slurred speech. He had difficulty getting up and out of bed today and thus she brought him to the ER. He reports his symptoms have improved since waking up today and that he is able to move his arm and his leg without much difficulty but feels weakness compared to his baseline. His speech is slowed but he is able to make full complete sentences, he occasionally has word finding issues, no word salad. No changes in vision, no headache, and no other acute complaints. Principal Diagnosis acute ischemic stroke Discharge Exam Constitutional: WD/WN, vitals as above Eyes: normal visual stewart by confrontation and + anicteric sclerae Neck: normal visual inspection and trachea midline Respiratory: normal respiratory effort, lungs clear to auscultation Cardiovascular: Rate/Rhythm: regular rate and regular rhythm Gastrointestinal (Abdomen): Inspection/Auscultation: abdomen not distended Percussion/Palpation: abdomen soft; abdomen nontender Musculoskeletal: Head/Neck/Chest: normocephalic and head atraumatic Skin: no rashes, warm and dry Neurologic: awake; not confused Speech / Cognition: + abnormal speech (slight slurring that is better than yesterday, answers are appropriate) Lifts R UE, but moving slowly. Able to move fingers but with decreased strength Psychiatric: A+Ox3, euthymic affect Discharge Data Allergies Allergy/AdvReac Type Severity Reaction Status Date / Time No Known Allergies Allergy Verified 12/26/19 15:48 Consultations 12/26/19 17:13 ED Decision to Admit Stat 12/26/19 18:26 Consult Case Management - Discharge Planning Routine Consult Neurology Routine Ordered Studies 12/26/19 14:36 CT angio head w con Stat CT angio neck with con Stat CT head/brain wo con Stat 11/08/20 18:26 MR brain wo con Routine Hospital Course (1) CVA (cerebral vascular accident): -R hemiplegia following CVA Admit to med surg with tele - CT of the head reviewed showing 2 x 0.7 cm hypodensity within the left boyle radiata which favors acute to subacute infarct, MRI is same - Stroke order set completed - ST feels no dietary restrictions for pt, however will need ongoing ST services on d/c - Neuro feels pt is excellent candidate for rehab Also recs for aspirin 81mg - Neuro checks per protocol - CT angio neck showed moderate noncalcified plaque within the distal left common carotid and proximal left internal carotid arteries without stenosis - UA negative -stable for discharge. (2) Type 2 diabetes mellitus: A1C 7.6 - Continue glargine 12 U HS, ISS with accuchecks achs - Allow diet after passes dysphagia eval Start statin (3) Diabetic peripheral neuropathy: - Cont gabapentin 300 mg HS (4) Hypertension: - Allow for permissive htn - Will hold lisinopril/hctz DVT ppx: - teds, scds CODE: Full Total Time Total Time Spent Total Time Spent (In Minutes): 32 Total Time Includes: Examination of the Patient, Discharge Planning and Medication Reconciliation Discharge Plan Discharge Items Patient Disposition: Transfer Inpatient Rehab Fac Reason For Visit: LEFT BOYLE RADIATA CVA Discharge Diagnosis: CVA Activity: Resume your previous activity Non-emergency contact: Primary Care Provider Call non-emergency contact if: you have any medication questions Follow-up/Referrals: Amauri Null, [Primary Care Provider] - Diet: Carb Consistent or DM2 and Heart Healthy Addtl Attending Provider Instructions: Risk Factors for Stroke: You can reduce your chances of stroke by working with your medical provider to adopt a healthy lifestyle. Some specific ways to lower your chance of stroke are: * If you are a smoker, now is the time to stop smoking cigarettes * If you are diabetic, improve the control of your blood sugars * Avoid excessive amounts of alcohol * Control high blood pressure * Lose weight if you are overweight * Be sure to lead an active lifestyle * Eat a healthy diet low in salt, cholesterol and fat You should know about other risk factors for stroke that you are unable to control. These include: * Age 55 years or older * Male gender * Certain racial groups: , or / * Family History of Stroke, Mini stroke or Heart Attack * Sickle Cell Disease Follow Up: It is important for you to keep your follow up appointments with your medical provider. Who to Call and When: Medical Emergencies: Call 911 immediately if you experience any of the following warning signs and symptoms of Stroke: * Sudden numbness or weakness of the face, arm or leg, especially on one side of the body * Sudden confusion, trouble speaking or understanding * Sudden trouble seeing in one or both eyes * Sudden trouble walking, dizziness, loss of balance or coordination * Sudden severe headache with no cause Do not delay calling 911 if you experience any warning signs or symptoms of a stroke. Delay in seeking medical attention may affect what treatments can be given to you. . Recommendation 1. continue 81 mg aspirin tablet daily. 2. control blood pressure as you are doing, aiming for a mean arterial pressure of approximately 95-100. 3. Control glucose, aiming for a hemoglobin A1c of approximately 8. 4. patient would be a high dose statin candidate 5. Physical, occupational, speech therapy consult. This patient may be an excellent candidate for the rehabilitation hospital. 6. continue duloxetine 30 mg in the evening. I do not believe this medication has anything to do with his current stroke problem ( 1st dose was December 24) Pending Studies at Discharge: No Stand-Alone Forms: My [facility], Smoking Cessation Skilled Items Patient informed of condition?: Yes DNR: No Discharge Level of Care: Acute rehab Communicable Disease: No Discharge Prognosis: Stable Lines: None Urinary Catheter: No Medications and DC Order Prescriptions: New atorvastatin 40 mg Tablet 80 mg PO HS Qty: 60 RF: 0 acetaminophen 325 mg Tablet 650 mg PO Q4H PRN (Reason: pain) Qty: 30 RF: 0 aspirin 81 mg Tablet,Delayed Release (Dr/Ec) 81 mg PO QAM Qty: 30 RF: 0 pantoprazole 40 mg Tablet,Delayed Release (Dr/Ec) 40 mg PO DAILY Qty: 30 RF: 0 lisinopril 20 mg tablet 20 mg PO PM Qty: 30 RF: 0 Continued gabapentin 300 mg capsule 300 mg PO HS Qty: 30 RF: 2 multivitamin Tablet 1 tab PO DAILY RF: 0 metformin 500 mg tablet extended release 24 hr 1,000 mg PO BID Qty: 120 RF: 2 (DME) pen needle, diabetic [BD Ultra-Fine Mini Pen Needle] 31 gauge x 3/16" needle See Rx Instructions .ROUTE .MEDSUPPLY Qty: 100 RF: 3 duloxetine [Cymbalta] 30 mg capsule,delayed release(DR/EC) 30 mg PO DAILY Qty: 30 RF: 3 (DME) 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 meter [IntelenTouch Verio IQ Meter] Kit See Rx Instructions .ROUTE .MEDSUPPLY Qty: 1 RF: 0 (DME) blood sugar diagnostic [OneTouch Verio test strips] Strip See Rx Instructions .ROUTE .MEDSUPPLY Qty: 100 RF: 2 (DME) lancets [IntelenTouch Delica Lancets] 33 gauge misc See Rx Instructions .ROUTE .MEDSUPPLY Qty: 100 RF: 0 Basaglar KwikPen U-100 Insulin 100 unit/mL (3 mL) insulin pen 12 unit subcut DAILY Qty: 15 RF: 3 bismuth subsalicylate [Pepto-Bismol] 262 mg/15 mL Suspension 0 mg PO QID PRN (Reason: gi up-set) RF: 0 Discontinued ibuprofen 200 mg capsule 200 - 400 mg PO Q6H PRN (Reason: Pain) RF: 0 esomeprazole magnesium 20 mg capsule,delayed release(DR/EC) 20 mg PO DAILY RF: 0 lisinopril-hydrochlorothiazide 20-25 mg tablet 1 tab PO DAILY Qty: 30 RF: 2 Discharge Orders: Discharge Order (Routine); Ordered 12/29/19 Ordered By: Humphrey Bennett/Other Patient Handouts: Managing Type 2 Diabetes, Symptoms of Stroke, Stroke: Self-Care, Discharge Instructions for Stroke, Managing Diabetes: The A1C Test Admission Data Admit Date/Time: 12/26/19 18:28 Attending Provider: Humphrey Mendez Admit Provider: Jaquelin Schuler Primary Care Provider: Amauri Null Other Providers: Jaquelin Schuler ; Amauri Fritz ; [facility] ; [facility] Other Interventions: Discharge Summary Assessment (RN) Last Done: 12/29/19 16:55 Coding Level of Care Code D/C Day Management >30 mins Diagnoses CVA (cerebral vascular accident) I63.9 Type 2 diabetes mellitus E11.9 Diabetic peripheral neuropathy E11.42 Hypertension I10 Time Spent (min) 32
== END 2019-12-29 18:00 | DRG 65 ==
LOC: ED 14:17 → 2N 18:28 → SUATTDRO 18:28 → 2N 19:46

== ENCOUNTER 2021-06-06 17:02 | Observation (INO) ==
--- NOTE | 2021-06-06 17:28 | Emergency Department Note ---
Impression & Plan Slurred speech, Weakness, UTI (urinary tract infection) ED Provider Note NAME: MAHAD CHA AGE: 50 SEX: M : 1970 ARRIVES VIA: Walk-In INFORMANT: Patient ED PROVIDER(S): Aníbal Marquis DO CHIEF COMPLAINT: Stuttering speech HPI: Patient is a 50-year-old male with a past medical history of insomnia, diabetes, CVA, hemiparesis affecting the right side L equal to his left he notes about 1/2-hour prior to arrival he was sitting talking with his mother who he lives with and he started having trouble getting his words out. He was brought back to the room from triage and a stroke alert was called from there prior to me seeing him. He denies any headache or change in vision. He admits to a previous stroke which was secondary to his blood pressures. He denies any previous brain bleeds. He notes he feels weak in the bilateral lower extremities and is having trouble getting his words out. No chest pain shortness of breath nausea vomiting or diarrhea. No dysuria, urgency, or frequency. No other exacerbating or remitting factors. Earlier today he did have some ringing in his bilateral ears with fullness in his right ear. ROS: See above HPI for pertinent positives & negatives. A total of 10 systems reviewed and were otherwise negative. PAST MEDICAL HISTORY:See Below PAST SURGICAL HISTORY:See Below FAMILY HISTORY:See Below SOCIAL HISTORY:See Below HOME MEDICATIONS:See Below ALLERGIES:See Below VITALS:See Below PHYSICAL EXAMINATION: GENERAL: Sitting up in bed, alert, well appearing, well nourished, no distress, non-toxic EYE EXAM: normal conjunctiva. PERRL and EOM's intact. OROPHARYNX: no exudate, no erythema, lips, buccal mucosa, and tongue normal and mucous membranes are moist NECK: supple, no nuchal rigidity, no adenopathy, non-tender LUNGS: Clear to auscultation. Normal chest wall mechanics HEART: no murmurs, S1 normal and S2 normal ABDOMEN: abdomen soft, non-tender, normo-active bowel sounds, no masses, no rebound or guarding. UPPER EXTREMITIES: upper extremities are grossly normal. LOWER EXTREMITIES: No pitting edema. NEURO EXAM: Normal sensorium, cranial nerves II-XII intact, stuttering speech, no weakness of arms, no weakness of legs. No drift. Finger to nose intact. Gross sensation intact. MEDICAL DECISION MAKING: Patient is a 50-year-old male who presents ER for the prostate complaint. IV was established blood was obtained. Labs show no significant leukocytosis or anemia. INR was unremarkable. BMP along with LFTs bilirubin LFTs were unremarkable. Troponin was negative. Magnesium was low 1.4. UA eventually resulted following admission showed a UTI. Tox was negative. COVID was negative. CT head as well as angio of the head and neck was negative. Stroke alert was called and tPA was not given as he had no focal deficit. This decision was made in conjunction with Dr. Bernstein from [facility]. Again patient was not given antibiotics and the ER as the urine did not come back until after patient was admitted. Will defer to the hospitalist the white cells, +4 bacteria to favor this, the cause of his symptoms Triage Nursing notes reviewed. Limited review of prior medical records performed Vital Signs: reviewed and remarkable for HTN, tachy Differential diagnosis: Differential Diagnosis includes but is not limited to ischemic Stroke, hemorrhagic stroke, bells palsy, mass, neoplasm, migraine headache, seizure, subarachnoid hemorrhage, TIA, and transient global amnesia. ER treatment provided: See below Diagnostics interpreted by me: ECG: Sinus rhythm rate of 96 Normal axis No PVCs QTC 416 Cardiac Monitoring: An order was placed for continuous cardiac monitoring. The monitor shows a rate of 99 with sinus rhythm. Laboratory studies: As stated above and show below. Imaging studies: CT angio of the head and neck were negative Consultation(s): Discussed with Dr. Bernstein from [facility] who evaluated the patient recommended no tPA Discussed with hospitalist for further evaluation Procedures: none Critical Care: None Past Med/Surg History Medical History Atypical nevus of back CVA (cerebral vascular accident) Diabetic peripheral neuropathy Diabetic retinopathy Dysarthria Hemiparesis affecting right side as late effect of cerebrovascular accident (~12/2019) Hypertension Insomnia Multiple acquired skin tags Paresthesia of both feet Paresthesia of hand, bilateral Right hemiplegia Sleep apnea (~2009) Type 2 diabetes mellitus Type 2 diabetes mellitus, controlled Uncontrolled type 2 diabetes mellitus Surgical History History of excision of lesion (09/06/19) History of tonsillectomy and adenoidectomy Family History Grandmother (Maternal) Breast cancer Father Heart disease Myocardial infarction Grandfather (Maternal) Prostate cancer Pancreatic cancer Sister Anxiety Brother Heart disease Mother No problems noted. 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 Beliefs That Will Affect Care: None marital status: Current Living Situation: Parent Current Living Situation Comment: Lives with mom and older brother current occupational status: employed 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 [employer] Feels Safe at Home: Yes Childhood Exposure to Second-Hand Smoke: Yes caffeine: Yes Dental Care, Regularly: No Physical Activity Frequency: Does not Exercise 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 Seatbelt Use: always Sunscreen Use: Yes Do you think of yourself as: straight/heterosexual Sexual Activity: has been sexually active within the last 12 months Assistive Devices: None Allergies Allergies Allergy/AdvReac Type Severity Reaction Status Date / Time No Known Allergies Allergy Verified 06/06/21 17:24 Home Meds Home Medications Medication Instructions Recorded Confirmed multivitamin 1 tab PO DAILY 08/16/19 06/06/21 bismuth subsalicylate 262 mg/15 mL 0 mg PO QID PRN 12/26/19 06/06/21 oral suspension (Pepto-Bismol) Transdermal compound cream 1 applic TOPICAL TID 05/17/21 06/06/21 Vit D complex 1 tab PO DAILY 05/17/21 06/06/21 dulaglutide 3 mg/0.5 mL 3 mg SUBCUT WK 06/06/21 06/06/21 subcutaneous pen injector eszopiclone 3 mg tablet 3 mg PO DAILY 06/06/21 06/06/21 insulin glargine 100 unit/mL (3 18 unit SUBCUT DAILY 06/06/21 06/06/21 mL) subcutaneous pen (Basaglar KwikPen U-100 Insulin) Previous Rx's Medication Instructions Recorded acetaminophen 325 mg tablet 650 mg PO Q4H PRN #30 tab 12/29/19 aspirin 81 mg tablet,delayed 81 mg PO QAM #30 tab 12/29/19 release pantoprazole 40 mg tablet,delayed 40 mg PO DAILY #90 tab 04/17/20 release BD Ultra-Fine Mini Pen Needle 31 #100 ea NS 09/25/20 gauge x 3/16" (pen needle, diabetic) OneTouch DelDigit Wireless Lancets 33 gauge #200 ea NS 09/25/20 (lancets) OneTouch Verio test strips (blood #200 ea NS 09/25/20 sugar diagnostic) 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 meter (OneTouch #1 ea 09/28/20 Verio IQ Meter) atorvastatin 80 mg tablet 80 mg PO DAILY #90 tab 02/01/21 lisinopril 20 mg tablet 20 mg PO PM #90 tab 02/01/21 duloxetine 60 mg capsule,delayed 60 mg PO HS #90 cap 03/01/21 release metformin 500 mg tablet,extended 1,000 mg PO BID #360 tab 03/22/21 release 24 hr Dexcom G6 Market Development Manager (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 #1 ea NS 05/04/21 meter,continuous) Dexcom G6 Sensor (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 #9 ea NS 05/04/21 sensor) Dexcom G6 Transmitter #1 ea NS 05/04/21 (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 transmitter) B-complex with vitamin C 1 tab PO DAILY #30 tab 05/17/21 gabapentin 800 mg tablet 800 mg PO TID #270 tab 05/17/21 Results & Data (ED) Vital Signs Vital Signs - 24 hr 06/06/21 17:03 06/06/21 17:18 06/06/21 17:37 Temperature 36.1 C L Temperature Source Temporal Artery Scan Pulse Rate 99 H 100 H 91 H Pulse Rate [Apical] Pulse Rate from SpO2 Sensor Pulse Rhythm Regular Pulse Strength Normal Respiratory Rate 20 19 Respiratory Effort / Characteristics Non-Labored Spontaneous Respiratory Depth Normal Respiratory Pattern Regular Blood Pressure 141/89 H 146/82 H Blood Pressure [Right Arm] Blood Pressure Mean 106 103 Blood Pressure Mean [Right Arm] Blood Pressure Position Sitting Pulse Oximetry 99 Oxygen Delivery Method Room Air Sepsis Recent Fever Within 48 Hours No Sepsis New/Unexplained Change in Mental Status No Sepsis Action Taken by Nursing No Action Required 06/06/21 18:00 06/06/21 18:30 06/06/21 18:40 Temperature Temperature Source Pulse Rate 96 H 87 Pulse Rate [Apical] 90 Pulse Rate from SpO2 Sensor Pulse Rhythm Pulse Strength Respiratory Rate 17 24 18 Respiratory Effort / Characteristics Respiratory Depth Respiratory Pattern Blood Pressure Blood Pressure [Right Arm] 121/78 Blood Pressure Mean Blood Pressure Mean [Right Arm] 92 Blood Pressure Position Pulse Oximetry 97 Oxygen Delivery Method Room Air Sepsis Recent Fever Within 48 Hours Sepsis New/Unexplained Change in Mental Status Sepsis Action Taken by Nursing 06/06/21 19:00 06/06/21 19:31 Temperature Temperature Source Pulse Rate 81 88 Pulse Rate [Apical] Pulse Rate from SpO2 Sensor 82 Pulse Rhythm Pulse Strength Respiratory Rate 17 17 Respiratory Effort / Characteristics Respiratory Depth Respiratory Pattern Blood Pressure 129/86 129/86 Blood Pressure [Right Arm] Blood Pressure Mean 100 100 Blood Pressure Mean [Right Arm] Blood Pressure Position Pulse Oximetry 97 99 Oxygen Delivery Method Room Air Room Air Sepsis Recent Fever Within 48 Hours Sepsis New/Unexplained Change in Mental Status Sepsis Action Taken by Nursing Laboratory Data Result diagrams: 06/06/21 17:22 06/06/21 17:22 Lab Results 06/06/21 06/06/21 06/06/21 Range/Units 17:13 17:22 17:22 WBC 5.85 (4.8-10.8) K/uL RBC 4.89 (4.7-6.1) M/uL Hgb 15.5 (14.0-18.0) g/dL POC Hgb (14.0-18.0) g/dl Hct 45.3 (42-52) % POC Hct (42-52) % MCV 92.6 (80-100) fL MCH 31.7 (25-34) pg MCHC 34.2 (32-36) g/dL RDW Std Deviation 44.0 (36.4-46.3) fL RDW Coeff of Jennifer 13.0 (11.5-14.5) % Plt Count 193 (130-400) K/uL MPV 9.9 (7.4-10.4) fL Immature Gran % (Auto) 0.2 % Neut % (Auto) 48.2 % Lymph % (Auto) 43.2 % [place] % (Auto) 5.3 % Eos % (Auto) 2.6 % Baso % (Auto) 0.5 % Neut # (Auto) 2.82 (1.4-6.5) K/uL Lymph # (Auto) 2.53 (1.2-3.4) K/uL [place] # (Auto) 0.31 (0.11-0.59) K/uL Eos # (Auto) 0.15 (0-0.5) K/uL Baso # (Auto) 0.03 (0-0.2) K/uL Immature Gran # (Auto) 0.01 (0.00-0.02) K/uL PT 10.5 (9.0-12.0) Seconds INR 1.0 (0.9-1.1) APTT 24.7 (21.0-31.0) Seconds PTT Ratio 0.9 POC Sodium (135-144) mmol/L Sodium (136-145) mmol/L POC Potassium (3.3-5.0) mmol/L Potassium (3.5-5.1) mmol/L POC Chloride (101-112) mmol/L Chloride (98-107) mmol/L Carbon Dioxide (21-32) mmol/L POC Total CO2 (24-31) mmol/L Anion Gap (3-11) POC Anion Gap (16-25) mmol/L POC BUN (7-18) mg/dl BUN (6-23) mg/dl Creatinine (0.6-1.4) mg/dl POC Creatinine (0.6-1.3) mg/dl Est Cr Clr Drug Dosing ml/min Est GFR ( Amer) ml/min Est GFR (Non-Af Amer) ml/min BUN/Creatinine Ratio (10-20) Glucose (70-99(Fasting)) mg/dl POC Glucose 78 (70-99) mg/dl POC Glucose (other) (70-99) mg/dl Calcium (8.5-10.1) mg/dl POC Ioniz Calcium Sadie (1.12-1.32) mmol/l Magnesium (1.7-2.4) mg/dl Total Bilirubin (0.2-1.0) mg/dl AST (13-39) U/L ALT (7-52) U/L Alkaline Phosphatase (34-104) U/L Troponin I High Sens (0-20) pg/ml Total Protein (6.0-8.3) gm/dl Albumin (3.4-5.0) gm/dl Globulin (2.5-4.0) gm/dl Albumin/Globulin Ratio (0.9-2) Urine Color Urine Appearance (Clear) Urine pH (4.5-7.5) Ur Specific [place] (1.000-1.030) Urine Protein (Negative) Urine Glucose (UA) (Negative) Urine Ketones (Negative) Urine Blood (Negative) Urine Nitrite (Negative) Urine Bilirubin (Negative) Urine Urobilinogen (Negative) Ur Leukocyte Esterase (Negative) Urine WBC (Auto) (0-5) /hpf Urine RBC (Auto) (0-4) /hpf U Hyaline Cast (Auto) (0-5) /lpf U Epithel Cells (Auto) (0-5) /lpf Urine Bacteria (Auto) (Negative) Urine Opiates Screen (Neg) Ur Methadone, Qual (Neg) Urine Barbiturates (Neg) Ur Phencyclidine (PCP) (Neg) U Amphetamin/Meth Scrn (Neg) MDMA (Ecstasy) Screen (Neg) U Benzodiazepines Scrn (Neg) Ur Cocaine Metabolite (Neg) U Marijuana (THC) Screen (Neg) SARS-CoV-2, RNA, NAAT (NEGATIVE) 06/06/21 06/06/21 06/06/21 Range/Units 17:22 17:27 18:00 WBC (4.8-10.8) K/uL RBC (4.7-6.1) M/uL Hgb (14.0-18.0) g/dL POC Hgb 15.3 (14.0-18.0) g/dl Hct (42-52) % POC Hct 45 (42-52) % MCV (80-100) fL MCH (25-34) pg MCHC (32-36) g/dL RDW Std Deviation (36.4-46.3) fL RDW Coeff of Jennifer (11.5-14.5) % Plt Count (130-400) K/uL MPV (7.4-10.4) fL Immature Gran % (Auto) % Neut % (Auto) % Lymph % (Auto) % [place] % (Auto) % Eos % (Auto) % Baso % (Auto) % Neut # (Auto) (1.4-6.5) K/uL Lymph # (Auto) (1.2-3.4) K/uL [place] # (Auto) (0.11-0.59) K/uL Eos # (Auto) (0-0.5) K/uL Baso # (Auto) (0-0.2) K/uL Immature Gran # (Auto) (0.00-0.02) K/uL PT (9.0-12.0) Seconds INR (0.9-1.1) APTT (21.0-31.0) Seconds PTT Ratio POC Sodium 141 (135-144) mmol/L Sodium 140 (136-145) mmol/L POC Potassium 3.9 (3.3-5.0) mmol/L Potassium 4.0 (3.5-5.1) mmol/L POC Chloride 100 L (101-112) mmol/L Chloride 101 (98-107) mmol/L Carbon Dioxide 29 (21-32) mmol/L POC Total CO2 28 (24-31) mmol/L Anion Gap 10 (3-11) POC Anion Gap 19.0 (16-25) mmol/L POC BUN 15 (7-18) mg/dl BUN 14 (6-23) mg/dl Creatinine 0.78 (0.6-1.4) mg/dl POC Creatinine 0.7 (0.6-1.3) mg/dl Est Cr Clr Drug Dosing 125.5 ml/min Est GFR ( Amer) 122.0 ml/min Est GFR (Non-Af Amer) 105.3 ml/min BUN/Creatinine Ratio 17.9 (10-20) Glucose 79 (70-99(Fasting)) mg/dl POC Glucose (70-99) mg/dl POC Glucose (other) 83 (70-99) mg/dl Calcium 9.7 (8.5-10.1) mg/dl POC Ioniz Calcium Sadie 1.21 (1.12-1.32) mmol/l Magnesium 1.4 L (1.7-2.4) mg/dl Total Bilirubin 0.6 (0.2-1.0) mg/dl AST 17 (13-39) U/L ALT 24 (7-52) U/L Alkaline Phosphatase 58 (34-104) U/L Troponin I High Sens 4.3 (0-20) pg/ml Total Protein 7.5 (6.0-8.3) gm/dl Albumin 4.7 (3.4-5.0) gm/dl Globulin 2.8 (2.5-4.0) gm/dl Albumin/Globulin Ratio 1.7 (0.9-2) Urine Color Urine Appearance (Clear) Urine pH (4.5-7.5) Ur Specific [place] (1.000-1.030) Urine Protein (Negative) Urine Glucose (UA) (Negative) Urine Ketones (Negative) Urine Blood (Negative) Urine Nitrite (Negative) Urine Bilirubin (Negative) Urine Urobilinogen (Negative) Ur Leukocyte Esterase (Negative) Urine WBC (Auto) (0-5) /hpf Urine RBC (Auto) (0-4) /hpf U Hyaline Cast (Auto) (0-5) /lpf U Epithel Cells (Auto) (0-5) /lpf Urine Bacteria (Auto) (Negative) Urine Opiates Screen (Neg) Ur Methadone, Qual (Neg) Urine Barbiturates (Neg) Ur Phencyclidine (PCP) (Neg) U Amphetamin/Meth Scrn (Neg) MDMA (Ecstasy) Screen (Neg) U Benzodiazepines Scrn (Neg) Ur Cocaine Metabolite (Neg) U Marijuana (THC) Screen (Neg) SARS-CoV-2, RNA, NAAT NEGATIVE (NEGATIVE) 06/06/21 06/06/21 Range/Units 20:05 20:05 WBC (4.8-10.8) K/uL RBC (4.7-6.1) M/uL Hgb (14.0-18.0) g/dL POC Hgb (14.0-18.0) g/dl Hct (42-52) % POC Hct (42-52) % MCV (80-100) fL MCH (25-34) pg MCHC (32-36) g/dL RDW Std Deviation (36.4-46.3) fL RDW Coeff of Jennifer (11.5-14.5) % Plt Count (130-400) K/uL MPV (7.4-10.4) fL Immature Gran % (Auto) % Neut % (Auto) % Lymph % (Auto) % [place] % (Auto) % Eos % (Auto) % Baso % (Auto) % Neut # (Auto) (1.4-6.5) K/uL Lymph # (Auto) (1.2-3.4) K/uL [place] # (Auto) (0.11-0.59) K/uL Eos # (Auto) (0-0.5) K/uL Baso # (Auto) (0-0.2) K/uL Immature Gran # (Auto) (0.00-0.02) K/uL PT (9.0-12.0) Seconds INR (0.9-1.1) APTT (21.0-31.0) Seconds PTT Ratio POC Sodium (135-144) mmol/L Sodium (136-145) mmol/L POC Potassium (3.3-5.0) mmol/L Potassium (3.5-5.1) mmol/L POC Chloride (101-112) mmol/L Chloride (98-107) mmol/L Carbon Dioxide (21-32) mmol/L POC Total CO2 (24-31) mmol/L Anion Gap (3-11) POC Anion Gap (16-25) mmol/L POC BUN (7-18) mg/dl BUN (6-23) mg/dl Creatinine (0.6-1.4) mg/dl POC Creatinine (0.6-1.3) mg/dl Est Cr Clr Drug Dosing ml/min Est GFR ( Amer) ml/min Est GFR (Non-Af Amer) ml/min BUN/Creatinine Ratio (10-20) Glucose (70-99(Fasting)) mg/dl POC Glucose (70-99) mg/dl POC Glucose (other) (70-99) mg/dl Calcium (8.5-10.1) mg/dl POC Ioniz Calcium Sadie (1.12-1.32) mmol/l Magnesium (1.7-2.4) mg/dl Total Bilirubin (0.2-1.0) mg/dl AST (13-39) U/L ALT (7-52) U/L Alkaline Phosphatase (34-104) U/L Troponin I High Sens (0-20) pg/ml Total Protein (6.0-8.3) gm/dl Albumin (3.4-5.0) gm/dl Globulin (2.5-4.0) gm/dl Albumin/Globulin Ratio (0.9-2) Urine Color Yellow Urine Appearance Clear (Clear) Urine pH >= 9.0 H (4.5-7.5) Ur Specific [place] > 1.045 H (1.000-1.030) Urine Protein Trace H (Negative) Urine Glucose (UA) Negative (Negative) Urine Ketones Negative (Negative) Urine Blood Negative (Negative) Urine Nitrite Negative (Negative) Urine Bilirubin Negative (Negative) Urine Urobilinogen Negative (Negative) Ur Leukocyte Esterase Negative (Negative) Urine WBC (Auto) >30 H (0-5) /hpf Urine RBC (Auto) 0-4 (0-4) /hpf U Hyaline Cast (Auto) 10-30 H (0-5) /lpf U Epithel Cells (Auto) 0-5 (0-5) /lpf Urine Bacteria (Auto) 4+ H (Negative) Urine Opiates Screen Neg (Neg) Ur Methadone, Qual Neg (Neg) Urine Barbiturates Neg (Neg) Ur Phencyclidine (PCP) Neg (Neg) U Amphetamin/Meth Scrn Neg (Neg) MDMA (Ecstasy) Screen Neg (Neg) U Benzodiazepines Scrn Neg (Neg) Ur Cocaine Metabolite Neg (Neg) U Marijuana (THC) Screen Neg (Neg) SARS-CoV-2, RNA, NAAT (NEGATIVE) Administered Medications Magnesium Sulfate/Dextrose (Magnesium Sulfate / D5w) 1 gm in 100 mls @ 50 mls/hr IV Q2H STA Stop: 06/06/21 23:09 Last Admin: 06/06/21 21:29 Dose: 50 mls/hr Documented by: [id number] Discontinued Medications Ioversol (Optiray 320 125ml) 120 ml IV ONCE ONE Stop: 06/06/21 17:40 Last Admin: 06/06/21 17:39 Dose: 120 ml Documented by: [id number] Imaging Data Radiologist's Impression: Chest X-Ray 06/06/21 17:22 XR chest 1V portable CLINICAL HISTORY: Stroke Like Symptoms TECHNIQUE: Single frontal radiograph of the chest was obtained. Comparison: Comparison is made to chest radiograph 08/06/2010 FINDINGS: No lines and tubes are seen. The cardiomediastinal silhouette is normal. The lungs are clear. No evidence of pleural effusion or pneumothorax. IMPRESSION: No acute chest disease. ACT 112: Negative or not required by law. Electronically signed by: Izaiah Morales M.D. 06/06/2021 6:[address] 06/06/21 17:22 CT angio neck with con, CT angio head w con, CT head/brain wo con CLINICAL HISTORY: Stroke Like Symptoms TECHNIQUE: Contiguous axial CT images of the head were acquired from the base of the skull to the vertex without intravenous contrast administration. CT angiography of the head and neck was performed following intravenous administration of iodinated contrast. Coronal and sagittal MIPS were obtained from the axial data set and were submitted for review. Automated dose lowering techniques and/or adjustment according to patient size were utilized for this examination. All measurements were calculated based on NASCET criteria. CT DOSE: 1269.19 mGy.cm Comparison: None available at the time of this dictation. FINDINGS: CT head: There is no acute intracranial hemorrhage or evidence of acute israel torial infarction. No shift of the midline structures, mass effect, or extra- axial abnormalities are shown. There is a chronic lacunar infarct in the left kate radiata. Lungs and soft tissues are unremarkable. CTA Neck: A 3 vessel aortic arch is shown. There is less than 50% stenosis of the left common carotid artery. The common carotid, external carotid, cervical segments of the internal carotid arteries, and the cervical segments of the v ertebral arteries are patent without hemodynamically significant stenosis. The left vertebral artery is dominant. CTA Head: The anterior and posterior cerebral circulations are patent. No hemodynamically significant stenosis, aneurysm, dissection, or arteriovenous malformation is shown. There is origin of the right posterior cerebral artery. IMPRESSION: 1. No acute intracranial hemorrhage, evidence of acute territorial infarction, or other acute intracranial disease process. 2. No occlusion, hemodynamically significant stenosis, aneurysm, dissection, or arteriovenous malformation in the major intracranial arteries. 3. No occlusion, hemodynamically significant stenosis, or dissection in the major cervical arteries. Less than 50% stenosis of the left common carotid artery is incidentally noted. Assessment of stenosis of the internal carotid arteries is based on NASCET criteria. ACT 112: Negative or not required by law. Electronically signed by: Izaiah Morales M.D. 06/06/2021 5:56 PM Head CTA 06/06/21 17:22 CT angio neck with con, CT angio head w con, CT head/brain wo con CLINICAL HISTORY: Stroke Like Symptoms TECHNIQUE: Contiguous axial CT images of the head were acquired from the base of the skull to the vertex without intravenous contrast administration. CT angiography of the head and neck was performed following intravenous administration of iodinated contrast. Coronal and sagittal MIPS were obtained from the axial data set and were submitted for review. Automated dose lowering techniques and/or adjustment according to patient size were utilized for this examination. All measurements were calculated based on NASCET criteria. CT DOSE: 1269.19 mGy.cm Comparison: None available at the time of this dictation. FINDINGS: CT head: There is no acute intracranial hemorrhage or evidence of acute territor ial infarction. No shift of the midline structures, mass effect, or extra-axial abnormalities are shown. There is a chronic lacunar infarct in the left kate radiata. Lungs and soft tissues are unremarkable. CTA Neck: A 3 vessel aortic arch is shown. There is less than 50% stenosis of the left common carotid artery. The common carotid, external carotid, cervical segments of the internal carotid arteries, and the cervical segments of the vert ebral arteries are patent without hemodynamically significant stenosis. The left vertebral artery is dominant. CTA Head: The anterior and posterior cerebral circulations are patent. No hemodynamically significant stenosis, aneurysm, dissection, or arteriovenous malformation is shown. There is origin of the right posterior cerebral artery. IMPRESSION: 1. No acute intracranial hemorrhage, evidence of acute territorial infarction, or other acute intracranial disease process. 2. No occlusion, hemodynamically significant stenosis, aneurysm, dissection, or arteriovenous malformation in the major intracranial arteries. 3. No occlusion, hemodynamically significant stenosis, or dissection in the m ajor cervical arteries. Less than 50% stenosis of the left common carotid artery is incidentally noted. Assessment of stenosis of the internal carotid arteries is based on NASCET criteria. ACT 112: Negative or not required by law. Electronically signed by: Izaiah Morales M.D. 06/06/2021 5:56 PM Neck CTA 06/06/21 17:22 CT angio neck with con, CT angio head w con, CT head/brain wo con CLINICAL HISTORY: Stroke Like Symptoms TECHNIQUE: Contiguous axial CT images of the head were acquired from the base of the skull to the vertex without intravenous contrast administration. CT angiography of the head and neck was performed following intravenous administration of iodinated contrast. Coronal and sagittal MIPS were obtained from the axial data set and were submitted for review. Automated dose lowering techniques and/or adjustment according to patient size were utilized for this examination. All measurements were calculated based on NASCET criteria. CT DOSE: 1269.19 mGy.cm Comparison: None available at the time of this dictation. FINDINGS: CT head: There is no acute intracranial hemorrhage or evidence of acute territorial infarction. No shift of the midline structures, mass effect, or extra-axial abnormalities are shown. There is a chronic lacunar infarct in the left kate radiata. Lungs and soft tissues are unremarkable. CTA Neck: A 3 vessel aortic arch is shown. There is less than 50% stenosis of the left common carotid artery. The common carotid, external carotid, cervical segments of the internal carotid arteries, and the cervical segments of the vertebral arteries are patent without hemodynamically significant stenosis. The left vertebral artery is dominant. CTA Head: The anterior and posterior cerebral circulations are patent. No hemodynamically significant stenosis, aneurysm, dissection, or arteriovenous malformation is shown. There is origin of the right posterior cerebral artery. IMPRESSION: 1. No acute intracranial hemorrhage, evidence of acute territorial infarction, or other acute intracranial disease process. 2. No occlusion, hemodynamically significant stenosis, aneurysm, dissection, or arteriovenous malformation in the major intracranial arteries. 3. No occlusion, hemodynamically significant stenosis, or dissection in the major cervical arteries. Less than 50% stenosis of the left common carotid artery is incidentally noted. Assessment of stenosis of the internal carotid arteries is based on NASCET criteria. ACT 112: Negative or not required by law. Electronically signed by: Izaiah Morales M.D. 06/06/2021 5:56 PM Discharge Plan Visit Data Chief Complaint: TIA Symptoms Stated Complaint: CANT FORM WORDS, WALKING ISSUES, TIA SYMPTOM ED Provider: Aníbal Marquis Discharge Problem: Slurred speech, Weakness, UTI (urinary tract infection) Patient Disposition: Admitted As Inpatient Discharge Instructions Interventions: ED Discharge Assessment Last Done: 06/06/21 22:02
[2021-06-06 17:37] LABS: Basophils # (auto) 0.03 K/uL (0-0.2); Basophils % (auto) 0.5 %; Eosinophils # (auto) 0.15 K/uL (0-0.5); Eosinophils % (auto) 2.6 %; Hematocrit (blood only) 45.3 % (42-52); Hemoglobin 15.5 g/dL (14.0-18.0); Immature Granulocytes # (auto) 0.01 K/uL (0.00-0.02); Immature Granulocytes % (auto) 0.2 %; Lymphocytes # (auto) 2.53 K/uL (1.2-3.4); Lymphocytes % (auto) 43.2 %; Mean Corpuscular Hemoglobin 31.7 pg (25-34); Mean Corpuscular Hgb Conc 34.2 g/dL (32-36); Mean Corpuscular Volume 92.6 fL (80-100); Mean Platelet Volume 9.9 fL (7.4-10.4); Monocytes # (auto) 0.31 K/uL (0.11-0.59); Monocytes % (auto) 5.3 %; Neutrophils # (auto) 2.82 K/uL (1.4-6.5); Neutrophils % (auto) 48.2 %; Platelet Count 193 K/uL (130-400); Red Blood Count 4.89 M/uL (4.7-6.1); White Blood Count 5.85 K/uL (4.8-10.8)
[2021-06-06] MEDS ORDERED: OPTIRAY 320 125ml IV ONE (17:39)
[2021-06-06 17:40] LABS: iSTAT Creatinine 0.7 mg/dl (0.6-1.3); iSTAT Hemoglobin 15.3 g/dl (14.0-18.0); iSTAT Ionized Calcium 1.21 mmol/l (1.12-1.32); iSTAT Potassium 3.9 mmol/L (3.3-5.0)
--- NOTE | 2021-06-06 17:58 | CT Scan Report ---
CT angio neck with con, CT angio head w con, CT head/brain wo con CLINICAL HISTORY: Stroke Like Symptoms TECHNIQUE: Contiguous axial CT images of the head were acquired from the base of the skull to the jonathan iveth without intravenous contrast administration. CT angiography of the head and neck was performed f ollowing intravenous administration of iodinated contrast. Coronal and sagittal MIPS were obtained fr om the axial data set and were submitted for review. Automated dose lowering techniques and/or adjus tment according to patient size were utilized for this examination. All measurements were calculated based on NASCET criteria. CT DOSE: 1269.19 mGy.cm Comparison: None available at the time of this dictation. FINDINGS: CT head: There is no acute intracranial hemorrhage or evidence of acute territorial infarction. No sh ift of the midline structures, mass effect, or extra-axial abnormalities are shown. There is a chroni c lacunar infarct in the left kate radiata. Lungs and soft tissues are unremarkable. CTA Neck: A 3 vessel aortic arch is shown. There is less than 50% stenosis of the left common caroti d artery. The common carotid, external carotid, cervical segments of the internal carotid arteries, and the cervical segments of the vertebral arteries are patent without hemodynamically significant st enosis. The left vertebral artery is dominant. CTA Head: The anterior and posterior cerebral circulations are patent. No hemodynamically significan t stenosis, aneurysm, dissection, or arteriovenous malformation is shown. There is origin of th e right posterior cerebral artery. IMPRESSION: 1. No acute intracranial hemorrhage, evidence of acute territorial infarction, or other acute intrac ranial disease process. 2. No occlusion, hemodynamically significant stenosis, aneurysm, dissection, or arteriovenous malfor mation in the major intracranial arteries. 3. No occlusion, hemodynamically significant stenosis, or dissection in the major cervical arteries. Less than 50% stenosis of the left common carotid artery is incidentally noted. Assessment of stenosis of the internal carotid arteries is based on NASCET criteria. ACT 112: Negative or not required by law. Electronically signed by: Izaiah Morales M.D. 06/06/2021 5:56 PM
[2021-06-06 18:07] LABS: Partial Thromboplastin Ratio 0.9; Partial Thromboplastin Time 24.7 Seconds (21.0-31.0); Prothrombin Time 10.5 Seconds (9.0-12.0)
[2021-06-06 18:13] LABS: Albumin Globulin Ratio 1.7 (0.9-2); Albumin Level 4.7 gm/dl (3.4-5.0); BUN Creatinine Ratio 17.9 (10-20); Bilirubin,Total 0.6 mg/dl (0.2-1.0); Calcium 9.7 mg/dl (8.5-10.1); Creatinine Clr Calc Pharmacy 125.5 ml/min; Est GFR (Non-African American) 105.3 ml/min; Globulin 2.8 gm/dl (2.5-4.0); Magnesium 1.4 mg/dl (1.7-2.4); Total Protein 7.5 gm/dl (6.0-8.3)
--- NOTE | 2021-06-06 18:13 | XRay Report ---
XR chest 1V portable CLINICAL HISTORY: Stroke Like Symptoms TECHNIQUE: Single frontal radiograph of the chest was obtained. Comparison: Comparison is made to chest radiograph 08/06/2010 FINDINGS: No lines and tubes are seen. The cardiomediastinal silhouette is normal. The lungs are clear. No evid ence of pleural effusion or pneumothorax. IMPRESSION: No acute chest disease. ACT 112: Negative or not required by law. Electronically signed by: Izaiah Morales M.D. 06/06/2021 6:12 PM
[2021-06-06 18:23] LABS: Troponin I High Sensitivity 4.3 pg/ml (0-20)
--- NOTE | 2021-06-06 18:29 | History & Physical Report ---
Date of Service June 06, 2021 Assessment & Plan (1) Weakness of both lower extremities: Plan: 50 yo male with PMHx of HTN, DM2, h/o stroke, tobacco user, peripheral neuropathy, obesity, GERD, insomnia presents to [facility] for stroke like symptoms. #Stroke r/o -presented with LE weakness, aphasia with gradual resolution, now all acute symptoms resolved -h/o stroke 2019, cont. aspirin, statin -CT head negative for acute stroke -CTA head/neck negative for acute stroke -neuro checks q2 -MRI wo contrast pending -lipid panel, A1C ordered -neuro consulted #Hypomagnesemia -repleted with 1gm x2 bags -recheck mag am lab #HTN -cont. home lisinopril #HLD -cont. home atorvastatin #Peripheral Neuropathy -cont. home gabapentin, cymbalta -acetaminophen prn for pain #DM2 -15 units qam lantus + SSI -hold home metformin, dulaglutide #Insomnia -cont. home eszopiclone qhs #GERD -cont. home pantoprazole DVT ppx: Lovenox 40mg q24 FEN/GI: hearth healthy Code Status: full Dispo: med/surg with tele (2) Overweight (BMI 25.0-29.9): (3) Type 2 diabetes mellitus, controlled: (4) Diabetic peripheral neuropathy: (5) Hypertension: (6) Insomnia: (7) Paresthesia of hand, bilateral: (8) Paresthesia of both feet: (9) Acid reflux: History of Present Illness Chief Complaint: Stroke like symptoms Primary Care Provider: Amauri Null, DO 50 yo M with PMHx of HTN, DM2, h/o stroke 2019, tobacco user, peripheral neuropathy, obesity, GERD, insomnia presents to [facility] for stroke like symptoms. Symptoms began earlier at work today complaining of his right ear feeling full and ringing bilateral ears. When he got home around 1600, he went upstairs sat down in his chair and noticed he started having aphasia, felt dizzy, and had numbness/tingling of distal extremities worse than his baseline. Mom drove him to hospital and he struggled with weakness walking into the emergency room. Upon arrival had continued aphasia with difficulty finding and making words. No dysarthria but words were coming out very slowly. Speech gradually improved during stroke alert. Distal extremity pain/tingling now near baseline. Legs still feel very from knee down, L>R gradually improving. Most recent A1C in 5s. HTN has been well controlled on lisinopril. Controlled weight loss. Compliant with home meds. Smokes 1-2 cigars per week. Rare alcohol use. Allergies Allergy/AdvReac Type Severity Reaction Status Date / Time No Known Allergies Allergy Verified 06/06/21 17:24 Home Medications Medication Instructions Recorded Confirmed Type multivitamin 1 tab PO DAILY 08/16/19 06/06/21 History bismuth subsalicylate 262 mg/15 mL 0 mg PO QID PRN 12/26/19 06/06/21 History oral suspension (Pepto-Bismol) acetaminophen 325 mg tablet 650 mg PO Q4H PRN #30 tab 12/29/19 06/06/21 Rx aspirin 81 mg tablet,delayed 81 mg PO QAM #30 tab 12/29/19 06/06/21 Rx release pantoprazole 40 mg tablet,delayed 40 mg PO DAILY #90 tab 04/17/20 06/06/21 Rx release BD Ultra-Fine Mini Pen Needle 31 #100 ea NS 09/25/20 05/17/21 Rx gauge x 3/16" (pen needle, diabetic) OneTouch Delica Lancets 33 gauge #200 ea NS 09/25/20 05/17/21 Rx (lancets) OneTouch Verio test strips (blood #200 ea NS 09/25/20 05/17/21 Rx sugar diagnostic) 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 meter (OneTouch #1 ea 09/28/20 05/17/21 Rx Verio IQ Meter) atorvastatin 80 mg tablet 80 mg PO DAILY #90 tab 02/01/21 06/06/21 Rx lisinopril 20 mg tablet 20 mg PO PM #90 tab 02/01/21 06/06/21 Rx duloxetine 60 mg capsule,delayed 60 mg PO HS #90 cap 03/01/21 06/06/21 Rx release metformin 500 mg tablet,extended 1,000 mg PO BID #360 tab 03/22/21 06/06/21 Rx release 24 hr Dexcom G6 Playground Attendant (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 #1 ea NS 05/04/21 05/17/21 Rx meter,continuous) Dexcom G6 Sensor (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 #9 ea NS 05/04/21 05/17/21 Rx sensor) Dexcom G6 Transmitter #1 ea NS 05/04/21 05/17/21 Rx (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 transmitter) B-complex with vitamin C 1 tab PO DAILY #30 tab 05/17/21 06/06/21 Rx Transdermal compound cream 1 applic TOPICAL TID 05/17/21 06/06/21 History Vit D complex 1 tab PO DAILY 05/17/21 06/06/21 History gabapentin 800 mg tablet 800 mg PO TID #270 tab 05/17/21 06/06/21 Rx dulaglutide 3 mg/0.5 mL 3 mg SUBCUT WK 06/06/21 06/06/21 History subcutaneous pen injector eszopiclone 3 mg tablet 3 mg PO DAILY 06/06/21 06/06/21 History insulin glargine 100 unit/mL (3 18 unit SUBCUT DAILY 06/06/21 06/06/21 History mL) subcutaneous pen (Basaglar KwikPen U-100 Insulin) Past Med/Surg History Medical History Atypical nevus of back CVA (cerebral vascular accident) Diabetic peripheral neuropathy Diabetic retinopathy Dysarthria Hemiparesis affecting right side as late effect of cerebrovascular accident (~12/2019) Hypertension Insomnia Multiple acquired skin tags Paresthesia of both feet Paresthesia of hand, bilateral Right hemiplegia Sleep apnea (~2009) Type 2 diabetes mellitus Type 2 diabetes mellitus, controlled Uncontrolled type 2 diabetes mellitus Surgical History History of excision of lesion (09/06/19) History of tonsillectomy and adenoidectomy Family History Grandmother (Maternal) Breast cancer Father Heart disease Myocardial infarction Grandfather (Maternal) Prostate cancer Pancreatic cancer Sister Anxiety Brother Heart disease Mother No problems noted. Denies family history of Ovarian cancer Lung cancer Social History Smoking Status: Light tobacco smoker Tobacco Type: Cigars Cigarettes Per Day: one cigar a week or one every other week; Second Hand Exposure: No; Hx Alcohol Use: Yes Alcohol type: beer and hard liquor Alcohol Intake Frequency Comment: 1-2 per week Preferred Language: French Communication Ability: Effective Visual Impairment: Limited Hearing Ability: Normal Wood Model Builder Required: No Beliefs That Will Affect Care: None marital status: Current Living Situation: Family Current Living Situation Comment: Lives with mom and older brother current occupational status: employed 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 denies fevers, chills, sweats HEENT: denies congestion, sore throat CV: denies chest pain, palpitations Resp: +mild SOB. denies cough GI: denies abdominal pain, nausea, vomiting, constipation, diarrhea : +urinary frequency with weaker stream. 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 Vitals as above. HEENT: No scleral injection or discharge.Moist mucous membranes.Clear oropharynx.No exudate. Neck: Supple without lymphadenopathy or thyromegaly. Trachea midline. Lungs: Clear to auscultation bilaterally with good effort. Cardiac: Regular rate and rhythm. No murmurs. No extremity edema. Pulses 2+. Abdomen: Bowel sounds present. Soft, nontender, and nondistended.No guarding. No hepatosplenomegaly. MSK: No cyanosis or clubbing. Extremities motor strength 5/5. Good brass and wind instrument repairer strength mildly weak on right. Skin: No rashes. Toes cool to touch. Neurologic: Grossly intact cranial nerves. PERRL. Decreased sensation bilateral feet and hands. Results & Data Results & Data ([facility]) Vital Signs (Past 12 Hours) Vital Signs Temp Pulse Resp BP Pulse Ox 06/06/21 18:00 96 H 17 04/20/22 17:37 91 H 146/82 H 06/06/21 17:18 100 H 19 06/06/21 17:03 36.1 C L 99 H 20 141/89 H 99 Laboratory Results Laboratory Results WBC 5.85 K/uL (4.8-10.8) 06/06/21 17: RBC 4.89 M/uL (4.7-6.1) 06/06/21 17: Hgb 15.5 g/dL (14.0-18.0) 06/06/21 17: POC Hgb 15.3 g/dl (14.0-18.0) 06/06/21 17: Hct 45.3 % (42-52) 06/06/21: POC Hct 45 % (42-52) 06/06/21: MCV 92.6 fL (80-100) 06/06/21: MCH 31.7 pg (25-34) 06/06/21: MCHC 34.2 g/dL (32-36) 06/06/21: RDW Std Deviation 44.0 fL (36.4-46.3) 06/06/21: RDW Coeff of Jennifer 13.0 % (11.5-14.5) 06/06/21: Plt Count 193 K/uL (130-400) 06/06/21: MPV 9.9 fL (7.4-10.4) 06/06/21: Immature Gran % (Auto) 0.2 % 06/06/21: Neut % (Auto) 48.2 % 06/06/21 17:22 Lymph % (Auto) 43.2 % 06/06/21 17:22 Dewitt % (Auto) 5.3 % 06/06/21: Eos % (Auto) 2.6 % 06/06/21: Baso % (Auto) 0.5 % 06/06/21: Neut # (Auto) 2.82 K/uL (1.4-6.5) 06/06/21 17: Lymph # (Auto) 2.53 K/uL (1.2-3.4) 06/06/21: Dewitt # (Auto) 0.31 K/uL (0.11-0.59) 06/06/21 17: Eos # (Auto) 0.15 K/uL (0-0.5) 06/06/21: Baso # (Auto) 0.03 K/uL (0-0.2) 06/06/21 17: Immature Gran # (Auto) 0.01 K/uL (0.00-0.02) 06/06/21: PT 10.5 Seconds (9.0-12.0) 06/06/21: INR 1.0 (0.9-1.1) 06/06/21: APTT 24.7 Seconds (21.0-31.0) 06/06/21: PTT Ratio 0.9 06/06/21: POC Sodium 141 mmol/L (135-144) 06/06/21: Sodium 140 mmol/L (136-145) 06/06/21: POC Potassium 3.9 mmol/L (3.3-5.0) 06/06/21: Potassium 4.0 mmol/L (3.5-5.1) 06/06/21: POC Chloride 100 mmol/L (101-112) L 06/06/21: Chloride 101 mmol/L (98-107) 06/06/21: Carbon Dioxide 29 mmol/L (21-32) 06/06/21: POC Total CO2 28 mmol/L (24-31) 06/06/21: Anion Gap 10 (3-11) 06/06/21: POC Anion Gap 19.0 mmol/L (16-25) 06/06/21: POC BUN 15 mg/dl (7-18) 06/06/21: BUN 14 mg/dl (6-23) 06/06/21: Creatinine 0.78 mg/dl (0.6-1.4) 06/06/21 17: POC Creatinine 0.7 mg/dl (0.6-1.3) 06/06/21: Est Cr Clr Drug Dosing 125.5 ml/min 06/06/21: Est GFR ( Amer) 122.0 ml/min 06/06/21 17:22 Est GFR (Non-Af Amer) 105.3 ml/min 06/06/21 17:22 BUN/Creatinine Ratio 17.9 (10-20) 06/06/21 17:22 Glucose 79 mg/dl (70-99(Fasting)) 06/06/21 17:22 POC Glucose 78 mg/dl (70-99) 06/06/21 17:13 POC Glucose (other) 83 mg/dl (70-99) 06/06/21 17: Calcium 9.7 mg/dl (8.5-10.1) 06/06/21 17: POC Ioniz Calcium Sadie 1.21 mmol/l (1.12-1.32) 06/06/21: Magnesium 1.4 mg/dl (1.7-2.4) L 06/06/21: Total Bilirubin 0.6 mg/dl (0.2-1.0) 06/06/21: AST 17 U/L (13-39) 06/06/21 17: ALT 24 U/L (7-52) 06/06/21 17:22 Alkaline Phosphatase 58 U/L (34-104) 06/06/21: Troponin I High Sens 4.3 pg/ml (0-20) 06/06/21 17: Total Protein 7.5 gm/dl (6.0-8.3) 06/06/21 17: Albumin 4.7 gm/dl (3.4-5.0) 06/06/21: Globulin 2.8 gm/dl (2.5-4.0) 06/06/21 17: Albumin/Globulin Ratio 1.7 (0.9-2) 06/06/21 17:22 Urine Color Yellow 06/06/21 20:05 Urine Appearance Clear (Clear) 06/06/21 20:05 Urine pH >= 9.0 (4.5-7.5) H 06/06/21 20:05 Ur Specific Harper > 1.045 (1.000-1.030) H 06/06/21 20:05 Urine Protein Trace (Negative) H 06/06/21 20:05 Urine Glucose (UA) Negative (Negative) 06/06/21 20:05 Urine Ketones Negative (Negative) 06/06/21 20:05 Urine Blood Negative (Negative) 06/06/21 20:05 Urine Nitrite Negative (Negative) 06/06/21 20:05 Urine Bilirubin Negative (Negative) 06/06/21 20:05 Urine Urobilinogen Negative (Negative) 06/06/21 20:05 Ur Leukocyte Esterase Negative (Negative) 06/06/21 20:05 Urine WBC (Auto) >30 /hpf (0-5) H 06/06/21 20:05 Urine RBC (Auto) 0-4 /hpf (0-4) 06/06/21 20:05 U Hyaline Cast (Auto) 10-30 /lpf (0-5) H 06/06/21 20:05 U Epithel Cells (Auto) 0-5 /lpf (0-5) 06/06/21 20:05 Urine Bacteria (Auto) 4+ (Negative) H 06/06/21 20:05 SARS-CoV-2, RNA, NAAT NEGATIVE (NEGATIVE) 06/06/21 18:00 Impressions Chest X-Ray 06/06/21 17:22 XR chest 1V portable CLINICAL HISTORY: Stroke Like Symptoms TECHNIQUE: Single frontal radiograph of the chest was obtained. Comparison: Comparison is made to chest radiograph 08/06/2010 FINDINGS: No lines and tubes are seen. The cardiomediastinal silhouette is normal. The l ungs are clear. No evidence of pleural effusion or pneumothorax. IMPRESSION: No acute chest disease. ACT 112: Negative or not required by law. Electronically signed by: Izaiah Morales M.D. 06/06/2021 6:[address] 06/06/21 17:22 CT angio neck with con, CT angio head w con, CT head/brain wo con CLINICAL HISTORY: Stroke Like Symptoms TECHNIQUE: Contiguous axial CT images of the head were acquired from the base of the skull to the vertex without intravenous contrast administration. CT angiography of the head and neck was performed following intravenous administration of iodinated contrast. Coronal and sagittal MIPS were obtained from the axial data set and were submitted for review. Automated dose lowering techniques and/or adjustment according to patient size were utilized for this examination. All measurements were calculated based on NASCET criteria. CT DOSE: 1269.19 mGy.cm Comparison: None available at the time of this dictation. FINDINGS: CT head: There is no acute intracranial hemorrhage or evidence of acute territorial infarction. No shift of the midline structures, mass effect, or extra-axial abnormalities are shown. There is a chronic lacunar infarct in the left kate radiata. Lungs and soft tissues are unremarkable. CTA Neck: A 3 vessel aortic arch is shown. There is less than 50% stenosis of the left common carotid artery. The common carotid, external carotid, cervical segments of the internal carotid arteries, and the cervical segments of the vertebral arteries are patent without hemodynamically significant stenosis. The left vertebral artery is dominant. CTA Head: The anterior and posterior cerebral circulations are patent. No hemodynamically significant stenosis, aneurysm, dissection, or arteriovenous malformation is shown. There is origin of the right posterior cerebral artery. IMPRESSION: 1. No acute intracranial hemorrhage, evidence of acute territorial infarction, or other acute intracranial disease process. 2. No occlusion, hemodynamically significant stenosis, aneurysm, dissection, or arteriovenous malformation in the major intracranial arteries. 3. No occlusion, hemodynamically significant stenosis, or dissection in the major cervical arteries. Less than 50% stenosis of the left common carotid artery is incidentally noted. Assessment of stenosis of the internal carotid arteries is based on NASCET criteria. ACT 112: Negative or not required by law. Electronically signed by: Izaiah Morales M.D. 06/06/2021 5:56 PM Head CTA 06/06/21 17:22 CT angio neck with con, CT angio head w con, CT head/brain wo con CLINICAL HISTORY: Stroke Like Symptoms TECHNIQUE: Contiguous axial CT images of the head were acquired from the base of the skull to the vertex without intravenous contrast administration. CT angiography of the head and neck was performed following intravenous administration of iodinated contrast. Coronal and sagittal MIPS were obtained from the axial data set and were submitted for review. Automated dose lowering techniques and/or adjustment according to patient size were utilized for this examination. All measurements were calculated based on NASCET criteria. CT DOSE: 1269.19 mGy.cm Comparison: None available at the time of this dictation. FINDINGS: CT head: There is no acute intracranial hemorrhage or evidence of acute territorial infarction. No shift of the midline structures, mass effect, or extra-axial abnormalities are shown. There is a chronic lacunar infarct in the left kate radiata. Lungs and soft tissues are unremarkable. CTA Neck: A 3 vessel aortic arch is shown. There is less than 50% stenosis of the left common carotid artery. The common carotid, external carotid, cervical segments of the internal carotid arteries, and the cervical segments of the vertebral arteries are patent without hemodynamically significant stenosis. The left vertebral artery is dominant. CTA Head: The anterior and posterior cerebral circulations are patent. No hemodynamically significant stenosis, aneurysm, dissection, or arteriovenous malformation is shown. There is origin of the right posterior cerebral artery. IMPRESSION: 1. No acute intracranial hemorrhage, evidence of acute territorial infarction, or other acute intracranial disease process. 2. No occlusion, hemodynamically significant stenosis, aneurysm, dissection, or arteriovenous malformation in the major intracranial arteries. 3. No occlusion, hemodynamically significant stenosis, or dissection in the major cervical arteries. Less than 50% stenosis of the left common carotid artery is incidentally noted. Assessment of stenosis of the internal carotid arteries is based on NASCET molly dubon. ACT 112: Negative or not required by law. Electronically signed by: Izaiah Morales M.D. 06/06/2021 5:56 PM Neck CTA 06/06/21 17:22 CT angio neck with con, CT angio head w con, CT head/brain wo con CLINICAL HISTORY: Stroke Like Symptoms TECHNIQUE: Contiguous axial CT images of the head were acquired from the base of the skull to the vertex without intravenous contrast administration. CT angiography of the head and neck was performed following intravenous administration of iodinated contrast. Coronal and sagittal MIPS were obtained from the axial data set and were submitted for review. Automated dose lowering techniques and/or adjustment according to patient size were utilized for this examination. All measurements were calculated based on NASCET criteria. CT DOSE: 1269.19 mGy.cm Comparison: None available at the time of this dictation. FINDINGS: CT head: There is no acute intracranial hemorrhage or evidence of acute territ orial infarction. No shift of the midline structures, mass effect, or extra- axial abnormalities are shown. There is a chronic lacunar infarct in the left kate radiata. Lungs and soft tissues are unremarkable. CTA Neck: A 3 vessel aortic arch is shown. There is less than 50% stenosis of the left common carotid artery. The common carotid, external carotid, cervical segments of the internal carotid arteries, and the cervical segments of the vertebral arteries are patent without hemodynamically significant stenosis. The left vertebral artery is dominant. CTA Head: The anterior and posterior cerebral circulations are patent. No hemodynamically significant stenosis, aneurysm, dissection, or arteriovenous malformation is shown. There is origin of the right posterior cerebral art mike. IMPRESSION: 1. No acute intracranial hemorrhage, evidence of acute territorial infarction, or other acute intracranial disease process. 2. No occlusion, hemodynamically significant stenosis, aneurysm, dissection, or arteriovenous malformation in the major intracranial arteries. 3. No occlusion, hemodynamically significant stenosis, or dissection in the major cervical arteries. Less than 50% stenosis of the left common carotid artery is incidentally noted. Assessment of stenosis of the internal carotid arteries is based on NASCET criteria. ACT 112: Negative or not required by law. Electronically signed by: Izaiah Morales M.D. 06/06/2021 5:56 PM Supervising Physician Co-Signing Physician Notes I supervised Arnold Duenas DO on this admission. I interviewed and examined the patient independently of him. The plan is as written in his note except for any following changes/exceptions: None 50yo M w/ hx of HTN, DM, and tobacco use who presents with transient neurologic symptoms. For me, he reports several weeks of waxing/waning aphasia. He presented due to acute worsening of his aphasia along with weakness. Aphasia was present through the ER MD's exam, but largely resolved for me. On resident exam, he had some bilateral LE weakness; however, by the time of my exam, he reported full, 100% return of strength. 5/5 strength in all extremities and his speech is mildly halting, but he reports back to baseline with mother in agreement. No dysarthria. Plan for neuro consult, MRI, and medical management of his possible TIA. Resident Activity Tracking Resident Involvement: Resident Care Provided Care Provided: Adult Hospital Medicine
[2021-06-06 20:29] LABS: Appearance Urine Clear (Clear); Bacteria Urine Automated 4+ (Negative); Bilirubin Urine Negative (Negative); Blood Urine Negative (Negative); Color Urine Yellow; Epithelial Cell Urine Auto 0-5 /lpf (0-5); Glucose Urine UA Negative (Negative); Ketones Urine Negative (Negative); Leukocyte Esterase Urine Negative (Negative); Nitrite Urine Negative (Negative); RBC Urine Automated 0-4 /hpf (0-4); Specific Gravity Urine > 1.045 (1.000-1.030); Urobilinogen Urine Negative (Negative); WBC Urine Automated >30 /hpf (0-5); pH Urine >= 9.0 (4.5-7.5)
[2021-06-06 20:34] LABS: Protein Urine Trace (Negative)
[2021-06-06 20:47] LABS: Amphetamines+Metham, Urine Neg (Neg); Barbiturates, Urine Neg (Neg); Benzodiazepine, Urine Neg (Neg); Cocaine, Urine Neg (Neg); MDMA (Ecstacy), Urine Neg (Neg); Methadone, Urine Neg (Neg); Opiate, Urine Neg (Neg); Phencyclidine, Urine Neg (Neg)
[2021-06-06] MEDS ORDERED: MAGNESIUM SULFATE / D5W 1 GM/100 ML BAG IV STA (21:10)
[2021-06-06] MEDS ORDERED: DULoxetine HCL 60 MG CAP PO SCH (22:43)
[2021-06-06] MEDS ORDERED: ONDANSETRON INJ 2 MG/ML 2 ML VIAL IV PRN (22:43)
[2021-06-06] MEDS ORDERED: GLUCOSE 40% GEL 15 GM TUBE PO PRN (22:43)
[2021-06-06] MEDS ORDERED: ESZOPICLONE 1 MG TAB PO SCH (22:43)
[2021-06-06] MEDS ORDERED: GLUCAGON FOR INJ 1 MG VIAL SQ PRN (22:43)
[2021-06-06] MEDS ORDERED: ALUMINUM/MAGNESIUM SUSP 30 ML UDC PO PRN (22:43)
[2021-06-06] MEDS ORDERED: ACETAMINOPHEN 325 MG TAB PO PRN (22:43)
[2021-06-06] MEDS ORDERED: CARBOHYDRATES FOR HYPOGLYCEMIA PO PRN (22:43)
[2021-06-06] MEDS ORDERED: GLUCOSE 10 TABS/TUBE PO PRN (22:43)
[2021-06-06] MEDS ORDERED: ATORVASTATIN 40 MG TAB PO SCH (22:43)
[2021-06-06] MEDS ORDERED: lisinopril 20 MG TAB PO SCH (22:43)
[2021-06-06] MEDS ORDERED: DEXTROSE 50% 50 ML SYRINGE IV PRN (22:43)
[2021-06-06] MEDS: INSULIN ASPART PER UNIT SC SCH (23:17)
[2021-06-06] MEDS: GABAPENTIN 800 MG TAB PO SCH (23:18)
[2021-06-06] MEDS ORDERED: MAGNESIUM SULFATE / D5W 1 GM/100 ML BAG IV ONE (23:30)
[2021-06-07] MEDS ORDERED: ENOXAPARIN INJ 40 MG/0.4 ML SYR SQ SCH
[2021-06-07 07:04] LABS: Chol HDL Ratio 3.8 (0-5); Magnesium 1.9 mg/dl (1.7-2.4)
[2021-06-07 07:25] LABS: Estimated Average Glucose 111 mg/dl; Hemoglobin A1C 5.5 % (4.5-5.6)
[2021-06-07] MEDS: INSULIN ASPART PER UNIT SC SCH ×2 (08:12→11:38)
--- NOTE | 2021-06-07 08:22 | Hospitalist Progress Note ---
Date of Service June 07, 2021 Assessment & Plan (1) Weakness of both lower extremities: Plan: 50 yo male with PMHx of HTN, DM2, h/o stroke, tobacco user, peripheral neuropathy, obesity, GERD, insomnia presents to [facility] for stroke like symptoms. #Stroke r/o -presented with LE weakness, aphasia with gradual resolution, now all acute symptoms resolved -h/o stroke 2019, cont. aspirin, statin -CT head negative for acute stroke -CTA head/neck negative for acute stroke -neuro checks q2 -MRI wo contrast pending -lipid panel, A1C ordered -neuro consulted #Hypomagnesemia -repleted with 1gm x2 bags -recheck mag am lab #HTN -cont. home lisinopril #HLD -cont. home atorvastatin #Peripheral Neuropathy -cont. home gabapentin, cymbalta -acetaminophen prn for pain #DM2 -15 units qam lantus + SSI -hold home metformin, dulaglutide #Insomnia -cont. home eszopiclone qhs #GERD -cont. home pantoprazole DVT ppx: Lovenox 40mg q24 FEN/GI: hearth healthy Code Status: full Dispo: med/surg with tele (2) Overweight (BMI 25.0-29.9): (3) Type 2 diabetes mellitus, controlled: (4) Diabetic peripheral neuropathy: (5) Hypertension: (6) Insomnia: (7) Paresthesia of hand, bilateral: (8) Paresthesia of both feet: (9) Acid reflux: Admission and Anticipated Discharge Date Admission Date: June 06, 2021 Results & Data Results & Data ([facility]) Vital Signs (Past 12 Hours) Vital Signs Temp Pulse Pulse Resp BP Pulse Ox 06/07/21 03:38 97.7 F 87 14 118/74 95 06/06/21 22:52 97.9 F 79 20 137/84 98 06/06/21 22:50 97.9 F 79 20 137/84 98 06/06/21 22:42 74 PG Care Time/CCT Total # of Minutes Spent Total Time Spent with Patient: Total time spent is greater than 50% in coordination of care (as documented) at patient's floor/unit and/or counseling patient: Coding Diagnoses Weakness of both lower extremities R29.898 Overweight (BMI 25.0-29.9) Type 2 diabetes mellitus, controlled E11.9 Diabetic peripheral neuropathy E11.42 Hypertension I10 Insomnia G47.00 Paresthesia of hand, bilateral R20.2 Paresthesia of both feet R20.2 Acid reflux K21.9
[2021-06-07] MEDS: GABAPENTIN 800 MG TAB PO SCH ×2 (08:28→13:22)
--- NOTE | 2021-06-07 08:45 | Magnetic Resonance Report ---
MRI OF THE BRAIN WITHOUT CONTRAST CLINICAL HISTORY: Speech difficulties. Lower extremity weakness. Evaluate for acute stroke. COMPARISON STUDY: MRI of the brain December 26, 2019. Head CT and CTA of the head June 06, 2021. TECHNIQUE: Utilizing a 1.5 Coreen magnet and dedicated coil, multiplanar, multiecho imaging of the bra in was performed without IV contrast. FINDINGS: There are no foci of restricted diffusion to suggest acute infarct. No acute intracranial h emorrhage, midline shift or mass effect is present. Ventricular system is normal. Basal cisterns are patent. There are no extra-axial collections. Flow-voids for the major intracranial vessels are prese nt. No intracranial masses identified on this unenhanced exam. Note is made of an old 2.5 x 1 cm infa rct within left kate radiata which was shown on MRI of December 26, 2019. A few small white matter T 2 hyperintense foci are similar to prior exam. These favor small vessel disease. Calvarial signal is normal. IMPRESSION: 1. No acute intracranial findings. 2. Old infarct within the left kate radiata. ACT 112: Negative or not required by law. Electronically signed by: Paramjit Sloan M.D. 06/07/2021 8:44 AM
--- NOTE | 2021-06-07 08:58 | Neurology Consultation ---
Date of Consultation June 07, 2021 Assessment & Plan (1) TIA (transient ischemic attack): (2) Diabetic peripheral neuropathy: Probable TIA localized to the left cerebral hemisphere although strokelike episode with recrudescence of previous neurologic symptoms also possible. However, no evidence of associated hypoglycemia, hypotension, or other significant metabolic or infectious abnormality at this time that would otherwise provoke symptomatic recurrence of his old stroke. No significant vascular abnormalities on CT angiography of the head and neck. No evidence of acute stroke on MRI. Chronic subcortical left hemispheric infarct noted. Insulin-dependent diabetes mellitus is a notable stroke risk factor for this patient. He also smokes cigars 2-3 times per week. He is already taking daily low-dose aspirin, atorvastatin, and lisinopril as an outpatient. He is also prescribed Cymbalta and gabapentin for management of diabetic peripheral neuropathy associated pain. Additional counseling regarding cessation of cigars/tobacco use will be needed. Patient will need a transthoracic echocardiogram with bubble study. Would also consider obtaining 30-day mobile cardiac outpatient telemetry. Would add clopidogrel 75 mg/day to his current medication regimen. Would contin ue with aspirin 81 mg/day as well, for the next 3 weeks, then discontinue the aspirin in favor of Plavix monotherapy. Patient blood pressure has been fairly normal, tends to run slightly low. Continue to monitor. Patient should continue with gabapentin and duloxetine for management of diabetic peripheral neuropathy pain. Patient may follow-up in neurology clinic with Dr. Forte or [facility] PA-C in the next 2 to 3 weeks. History of Present Illness Reason for Consultation: r/o stroke Requesting Physician: Arnold Duenas DO Attending Physician: Luis Dean MD History of Present Illness The patient is a 50-year-old male with a chief complaint of word finding difficulty and bilateral lower extremity weakness that began acutely yesterday afternoon, after returning from work. Patient did have a telestroke consultation with a specialist at [facility]. His neurologic deficits had resolved, however. tPA was not administered. Patient does have a history of ischemic left hemispheric stroke occurring in 2019, presenting with aphasia and right-sided weakness at that time. History also notable for insulin-dependent diabetes mellitus and associated diabetic peripheral neuropathy for which she has been following with Dr. Forte in [facility] in neurology clinic, last seen May 17, 2021. He has not exhibited an obvious hemiparesis and recent outpatient neurological examination although has had findings suggestive of a diabetic peripheral neuropathy. Patient has not had a recurrence of his word finding difficulty or lower extremity weakness in the context of his current hospitalization. He currently denies headache, vision disturbance, change in speech or swallowing. Allergies Allergy/AdvReac Type Severity Reaction Status Date / Time No Known Allergies Allergy Verified 06/06/21 17:24 Home Medications Medication Instructions Recorded Confirmed Type multivitamin 1 tab PO DAILY 08/16/19 06/06/21 History bismuth subsalicylate 262 mg/15 mL 0 mg PO QID PRN 12/26/19 06/06/21 History oral suspension (Pepto-Bismol) acetaminophen 325 mg tablet 650 mg PO Q4H PRN #30 tab 12/29/19 06/06/21 Rx aspirin 81 mg tablet,delayed 81 mg PO QAM #30 tab 12/29/19 06/06/21 Rx release pantoprazole 40 mg tablet,delayed 40 mg PO DAILY #90 tab 04/17/20 06/06/21 Rx release BD Ultra-Fine Mini Pen Needle 31 #100 ea NS 09/25/20 05/17/21 Rx gauge x 3/16" (pen needle, diabetic) OneTouch Delica Lancets 33 gauge #200 ea NS 09/25/20 05/17/21 Rx (lancets) OneTouch Verio test strips (blood #200 ea NS 09/25/20 05/17/21 Rx sugar diagnostic) 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 meter (OneTouch #1 ea 09/28/20 05/17/21 Rx Verio IQ Meter) atorvastatin 80 mg tablet 80 mg PO DAILY #90 tab 02/01/21 06/06/21 Rx lisinopril 20 mg tablet 20 mg PO PM #90 tab 02/01/21 06/06/21 Rx duloxetine 60 mg capsule,delayed 60 mg PO HS #90 cap 03/01/21 06/06/21 Rx release metformin 500 mg tablet,extended 1,000 mg PO BID #360 tab 03/22/21 06/06/21 Rx release 24 hr Dexcom G6 Senior Support Engineer (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 #1 ea NS 05/04/21 05/17/21 Rx meter,continuous) Dexcom G6 Sensor (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 #9 ea NS 05/04/21 05/17/21 Rx sensor) Dexcom G6 Transmitter #1 ea NS 05/04/21 05/17/21 Rx (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 transmitter) B-complex with vitamin C 1 tab PO DAILY #30 tab 05/17/21 06/06/21 Rx Transdermal compound cream 1 applic TOPICAL TID 05/17/21 06/06/21 History Vit D complex 1 tab PO DAILY 05/17/21 06/06/21 History gabapentin 800 mg tablet 800 mg PO TID #270 tab 05/17/21 06/06/21 Rx dulaglutide 3 mg/0.5 mL 3 mg SUBCUT WK 06/06/21 06/06/21 History subcutaneous pen injector eszopiclone 3 mg tablet 3 mg PO DAILY 06/06/21 06/06/21 History insulin glargine 100 unit/mL (3 18 unit SUBCUT DAILY 06/06/21 06/06/21 History mL) subcutaneous pen (Basaglar KwikPen U-100 Insulin) Patient History Medical History Atypical nevus of back CVA (cerebral vascular accident) Diabetic peripheral neuropathy Diabetic retinopathy Dysarthria Hemiparesis affecting right side as late effect of cerebrovascular accident (~12/2019) Hypertension Insomnia Multiple acquired skin tags Paresthesia of both feet Paresthesia of hand, bilateral Right hemiplegia Sleep apnea (~2009) Type 2 diabetes mellitus Type 2 diabetes mellitus, controlled Uncontrolled type 2 diabetes mellitus Surgical History History of excision of lesion (09/06/19) History of tonsillectomy and adenoidectomy Family History Grandmother (Maternal) Breast cancer Father Heart disease Myocardial infarction Grandfather (Maternal) Prostate cancer Pancreatic cancer Sister Anxiety Brother Heart disease Mother No problems noted. Denies family history of Ovarian cancer Lung cancer Social History Smoking Status: Light tobacco smoker Tobacco Type: Cigars Cigarettes Per Day: one cigar a week or one every other week; Second Hand Exposure: No; Hx Alcohol Use: Yes Alcohol type: beer and hard liquor Alcohol Intake Frequency Comment: 1-2 per week Preferred Language: Emir[place] Communication Ability: Effective Visual Impairment: Limited Hearing Ability: Normal Medical Secretary Receptionist Required: No Beliefs That Will Affect Care: None marital status: Current Living Situation: Family Current Living Situation Comment: Lives with mom and older brother current occupational status: employed 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 Feels Safe at Home: Yes Safety Concerns: Feels Safe At This Time Childhood Exposure to Second-Hand Smoke: Yes caffeine: Yes Dental Care, Regularly: No Physical Activity Frequency: Does not Exercise 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 Seatbelt Use: always Sunscreen Use: Yes Do you think of yourself as: straight/heterosexual Sexual Activity: has been sexually active within the last 12 months Assistive Devices: None Review of Systems Constitutional: no fever and no chills Eyes: no blind spots and no diplopia Ear, Nose, Mouth, Throat: no ear pain and no hearing loss Respiratory: no cough and no dyspnea Cardiovascular: no chest pain and no palpitations Gastrointestinal: no constipation and no diarrhea/loose stools Genitourinary: no urinary incontinence or no urinary urgency Musculoskeletal: no muscle weakness and no muscle atrophy Integumentary: no rash and no lesions Neurologic: as per Subjective / HPI, + loss of sensation and + paresthesia Psychiatric: no behavioral changes, no depression, no abnormal sleep pattern and no anxiety Hematologic / Lymphatic: no easy bruising and no lymphadenopathy Exam (Neuro) Constitutional: well developed and well nourished; no acute distress Eyes: normal visual stewart by confrontation, PERRL, normal accommodation and EOM intact bilaterally; no fundoscopic abnormality, no nystagmus and no papilledema Cardiovascular: Vessels: normal carotid upstroke; no carotid bruit Neurologic: Oriented to:: Person, Place and Time Memory: Short Term Intact and Remote Intact Attention: Span Intact and Concentration Intact Language: Naming Objects and Repeating Phrases Speech Fluency: negative Dysarthria Speech Aphasia: negative Aphasia Fund of Knowledge: Current Events, Past History and Vocabulary Cranial Nerves: Normal II (Visual stewart full to confrontation, visual acuity normal), III, IV, (Pupils equal round reactive to light and accommodation, eye movements normal), V (Facial sensation intact), VII (There is no facial droop or weakness), VIII (Hearing intact), IX, X (Palate elevates to midline), XI (Shoulder shrug intact) and XII (Tongue protrudes to midline) Motor Strength: Normal Lower Extremities and Normal Upper Extremities; negative Pronator Drift Motor Tone: Normal Lower Extremities and Normal Upper Extremities Muscle Bulk/Involuntary Movements: No Involuntary Movements; negative Muscle Atrophy Sensation: negative Light Touch Intact, Pain/Temperature Intact, Vibration Intact or Proprioception Intact Coordination: Normal; negative Limited Balance, Dysdiadochokinesia, Finger- Nose Abnormal or Heel-Khan Abnormal Deep Tendon Reflexes: Rt Triceps: 2+, Lt Triceps: 2+, Rt Biceps: 2+, Lt Biceps: 2+, Rt Brachioradialis: 2+, Lt Brachioradialis: 2+, Rt Patellar: 1+, Lt Patellar: 1+, Rt Ankle: 0 and Lt Ankle: 0 Special Tests: negative Babinski Present (Right plantar response equivocal, left plantar response downgoing.) Gait: Normal Station and Gait Results & Data ([facility]) Vital Signs (Past 12 Hours) Vital Signs Temp Pulse Pulse Resp BP Pulse Ox 06/07/21 08:38 36.5 C 92 H 22 111/66 94 06/07/21 03:38 36.5 C 87 14 118/74 95 06/06/21 22:52 36.6 C 79 20 137/84 98 06/06/21 22:50 36.6 C 79 20 137/84 98 06/06/21 22:42 74 Laboratory Results WBC 5.85, hemoglobin 15.5, hematocrit 45.3, MCV 92.6, platelet count 193, sodium 140, potassium 4.0, BUN 14, creatinine 0.78, glucose 79, hemoglobin A1c 5.5, magnesium 1.4, AST 17, ALT 24, triglycerides 159, cholesterol 92, LDL 36, VLDL 32, HDL 24. Diagnostic Findings CT of the head including CT angiography of the head and neck negative for hemorrhage or acute process, no occlusion or hemodynamically significant sten osis, aneurysm, or dissection within the intracranial arteries. No occlusion, hemodynamically significant stenosis, or dissection of the major cervical arteries. Less than 50% stenosis of the left common carotid artery noted. MRI of the brain negative for acute stroke. There was a chronic infarct within the left kate radiata measuring 2.5 x 1 cm. I reviewed the images as well as the radiologist interpretation of these tests. There appears to be some findings consistent with associated wallerian degeneration as well per my review. Electrocardiogram reveals a normal sinus rhythm, 96 bpm. Coding Level of Care Code 93799 Initial Inpt Care Lvl 3 Diagnoses TIA (transient ischemic attack) G45.9 Diabetic peripheral neuropathy E11.42
[2021-06-07] MEDS ORDERED: INSULIN GLARGINE SOLOSTAR 100 UNITS/ML 3 ML PEN SC SCH (09:00)
[2021-06-07] MEDS ORDERED: PANTOprazole 40 MG TAB PO SCH (09:00)
[2021-06-07] MEDS ORDERED: ASPIRIN 81 MG ECTAB PO SCH (09:00)
--- NOTE | 2021-06-07 09:59 | Billing Data ---
Date of Service June 06, 2021 Coding Level of Care Code 26208 Initial Inpt Care Lvl 3
--- NOTE | 2021-06-07 17:57 | Electrocardiogram Report ---
Test Reason : Blood Pressure : / mmHG Vent. Rate : 096 BPM Atrial Rate : 096 BPM P-R Int : 158 ms QRS Dur : 098 ms QT Int : 330 ms P-R-T Axes : 062 072 050 degrees QTc Int : 416 ms Normal sinus rhythm Normal ECG When compared with ECG of 26-DEC-2019 15:07, No significant change was found Confirmed by Channing Contreras ([id number]) on 06/07/2021 5:57:16 PM Referred By: REFERRED SELF Confirmed By:Harpreet Contreras
--- NOTE | 2021-06-07 18:19 | Discharge Summary ---
Date of Service June 07, 2021 Admission HPI Per Admitting Provider 50 yo M with PMHx of HTN, DM2, h/o stroke 2019, tobacco user, peripheral neuropathy, obesity, GERD, insomnia presents to [facility] for stroke like symptoms. Symptoms began earlier at work today complaining of his right ear feeling full and ringing bilateral ears. When he got home around 1600, he went upstairs sat down in his chair and noticed he started having aphasia, felt dizzy, and had numbness/tingling of distal extremities worse than his baseline. Mom drove him to hospital and he struggled with weakness walking into the emergency room. Upon arrival had continued aphasia with difficulty finding and making words. No dysarthria but words were coming out very slowly. Speech gradually improved during stroke alert. Distal extremity pain/tingling now near baseline. Legs still feel very from knee down, L>R gradually improving. Most recent A1C in 5s. HTN has been well controlled on lisinopril. Controlled weight loss. Compliant with home meds. Smokes 1-2 cigars per week. Rare alcohol use. Principal Diagnosis TIA Discharge Exam The patient appeared well Vital signs as documented. Lungs are clear to auscultation and appear unlabored Cardiac exam, Rhythm is regular.. No murmurs, rubs or gallops. Abdominal exam reveals normal bowel sounds, soft non tender, no masses Extremities are nonedematous and both pedal pulses are normal. Neurologic exam is alert and oriented, no focal loss of strength or sensation Skin is without bruises or rashes Psychologically is without concerns for anxiety or depression. Discharge Data Allergies Allergy/AdvReac Type Severity Reaction Status Date / Time No Known Allergies Allergy Verified 06/06/21 17:24 Consultations 06/06/21 18:42 ED Decision to Admit Stat 06/06/21 22:43 Consult Neurology Routine Ordered Studies 06/06/21 17:22 CT angio head w con Stat CT angio neck with con Stat CT head/brain wo con Stat 06/06/21 20:17 MR brain wo con Routine Hospital Course (1) Weakness of both lower extremities: 50 yo male with PMHx of HTN, DM2, h/o stroke, tobacco user, peripheral neuropathy, obesity, GERD, insomnia presents to [facility] for stroke like symptoms. #Stroke ruled out , dx of TIA, complete resolution -presented with LE weakness, aphasia with gradual resolution, now all acute symptoms resolved -h/o stroke 2019, cont. aspirin, statin -CT head negative for acute stroke -CTA head/neck negative for acute stroke -MRI brain without acute stroke -neuro recommends 3 weeks of DAPT then just plavix daily -arrange for outpt cardiac event monitor #Hypomagnesemia -repleted with 1gm x2 bags -replete #HTN -cont. home lisinopril #HLD -cont. home atorvastatin #Peripheral Neuropathy -cont. home gabapentin, cymbalta #DM2 -18 u glargine daily resume metformin, dulaglutide #Insomnia -cont. home eszopiclone qhs #GERD -cont. home pantoprazole (2) Overweight (BMI 25.0-29.9): (3) Type 2 diabetes mellitus, controlled: (4) Diabetic peripheral neuropathy: (5) Hypertension: (6) Insomnia: (7) Paresthesia of hand, bilateral: (8) Paresthesia of both feet: (9) Acid reflux: Total Time Total Time Spent Total Time Spent (In Minutes): It required greater than 30 minutes to prepare this patient for discharge Discharge Plan Discharge Items Patient Disposition: Home - Self-Care Reason For Visit: STROKE LIKE SYMPTOMS Discharge Diagnosis: TIA, threatened stroke but not confirmed stroke Activity: Resume your previous activity Non-emergency contact: Primary Care Provider Call non-emergency contact if: your symptoms worsen Follow-up/Referrals: Amauri Null DO [Primary Care Provider] - 06/11/21 11:30 am Diet: Carb Consistent or DM2 Addtl Attending Provider Instructions: you did not have a stroke but likely had a threatened stroke called a TIA( Transient ischemic attack) for this we will start a new medicine called Plavix(clopidogrel) once a day to be taken in addition to your aspirin for 3 weeks, then stop your aspirin and continue taking plavix daily. We will coordinate a heart monitor to wear at home, as some heart rhythms can be associated with TIA and stroke, this will come with instructions and will be interpreted by a director employee safety and health and those results shared with your family doctor. Risk Factors for Stroke: You can reduce your chances of stroke by working with your medical provider to adopt a healthy lifestyle. Some specific ways to lower your chance of stroke are: * If you are a smoker, now is the time to stop smoking cigarettes * If you are diabetic, improve the control of your blood sugars * Avoid excessive amounts of alcohol * Control high blood pressure * Lose weight if you are overweight * Be sure to lead an active lifestyle * Eat a healthy diet low in salt, cholesterol and fat You should know about other risk factors for stroke that you are unable to control. These include: * Age 55 years or older * Male gender * Certain racial groups: , or / * Family History of Stroke, Mini stroke or Heart Attack * Sickle Cell Disease Follow Up: It is important for you to keep your follow up appointments with your medical provider. Who to Call and When: Medical Emergencies: Call 911 immediately if you experience any of the following warning signs and symptoms of Stroke: * Sudden numbness or weakness of the face, arm or leg, especially on one side of the body * Sudden confusion, trouble speaking or understanding * Sudden trouble seeing in one or both eyes * Sudden trouble walking, dizziness, loss of balance or coordination * Sudden severe headache with no cause Do not delay calling 911 if you experience any warning signs or symptoms of a stroke. Delay in seeking medical attention may affect what treatments can be given to you. . Pending Studies at Discharge: Yes Studies:: final urine analysis Stand-Alone Forms: My [facility] Emair, Smoking Cessation Medications and DC Order Prescriptions: New clopidogrel [Plavix] 75 mg tablet 75 mg PO DAILY Qty: 30 RF: 5 Continued pantoprazole 40 mg tablet,delayed release (DR/EC) 40 mg PO DAILY Qty: 90 RF: 3 (DME) pen needle, diabetic [BD Ultra-Fine Mini Pen Needle] 31 gauge x 3/16" needle See Rx Instructions .ROUTE .MEDSUPPLY Qty: 100 RF: 3 (DME) lancets [OneTouch Delica Lancets] 33 gauge misc See Rx Instructions .ROUTE .MEDSUPPLY Qty: 200 RF: 3 (DME) OneTouch Verio test strips Strip See Rx Instructions .ROUTE .MEDSUPPLY Qty: 200 RF: 3 (DME) 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 meter [OneTouch Verio IQ Meter] Kit See Rx Instructions .ROUTE .MEDSUPPLY Qty: 1 RF: 0 atorvastatin 80 mg tablet 80 mg PO DAILY Qty: 90 RF: 3 lisinopril 20 mg tablet 20 mg PO PM Qty: 90 RF: 3 metformin 500 mg tablet extended release 24 hr 1,000 mg PO BID Qty: 360 RF: 1 (DME) Dexcom G6 Transmitter Device See Rx Instructions .Route Qty: 1 RF: 3 (DME) Dexcom G6 Sensor Device See Rx Instructions .Route Qty: 9 RF: 3 (DME) Dexcom G6 Director Payer Misc See Rx Instructions .Route Qty: 1 RF: 0 multivitamin Tablet 1 tab PO DAILY RF: 0 duloxetine 60 mg capsule,delayed release(DR/EC) 60 mg PO HS Qty: 90 RF: 1 gabapentin 800 mg tablet 800 mg PO TID Qty: 270 RF: 3 B-complex with vitamin C Tablet 1 tab PO DAILY Qty: 30 RF: 0 Vit D complex 1 tab PO DAILY RF: 0 Transdermal compound cream 1 applic topical TID RF: 0 bismuth subsalicylate [Pepto-Bismol] 262 mg/15 mL Suspension 0 mg PO QID PRN (Reason: gi up-set) RF: 0 acetaminophen 325 mg Tablet 650 mg PO Q4H PRN (Reason: pain) Qty: 30 RF: 0 aspirin 81 mg Tablet,Delayed Release (Dr/Ec) 81 mg PO QAM Qty: 30 RF: 0 eszopiclone 3 mg tablet 3 mg PO DAILY RF: 0 dulaglutide 3 mg/0.5 mL pen injector 3 mg subcut WK RF: 0 Changed Basaglar KwikPen U-100 Insulin 100 unit/mL (3 mL) insulin pen 18 unit subcut DAILY Qty: 15 RF: 4 Discharge Orders: Discharge Order (Routine); Ordered 06/07/21 Ordered By: Luis Dean Admission Data Admit Date/Time: 06/06/21 20:54 Attending Provider: Luis Dean Admit Provider: Remigio Fitch Primary Care Provider: Amauri Null Other Providers: Remigio Fitch ; Amauri Fritz Other Interventions: Discharge Summary Assessment (RN) Last Done: 06/07/21 12:58 Coding Level of Care Code D/C DAY MANAGEMENT >30 MINS Diagnoses Weakness of both lower extremities R29.898 Overweight (BMI 25.0-29.9) Type 2 diabetes mellitus, controlled E11.9 Diabetic peripheral neuropathy E11.42 Hypertension I10 Insomnia G47.00 Paresthesia of hand, bilateral R20.2 Paresthesia of both feet R20.2 Acid reflux K21.9
== END 2021-06-07 14:08 | disposition home or self-care (01) ==
LOC: ED 17:02 → 2E 20:54 → INTOOBSV 20:54 → SUATTDRO 20:54 → 2E 22:02

== ENCOUNTER 2024-08-26 17:52 | Observation (INO) ==
[2024-08-26] MEDS: OPTIRAY 320 125ml IV ONE (18:05)
--- NOTE | 2024-08-26 18:09 | Emergency Department Note ---
Impression & Plan Stroke-like symptoms ED Provider Note NAME: MAHAD CHA AGE: 53 SEX: M : 1970 ARRIVES VIA: Walk-In INFORMANT: Patient, the patient's mother ED PROVIDER(S): Jerrell Mejia DO CHIEF COMPLAINT: Strokelike symptoms HPI: The patient is a 53-year-old male who has a history of a left kate radiata stroke who presented to the emergency department for an evaluation of strokelike symptoms. The patient had symptoms that he thinks began at work today. It was around 1130 this morning. He went home from work. He did drive himself. He states he went home and tried to take a nap thinking his symptoms might improve. The patient then started having symptoms of difficulty ambulating. He does note an occipital headache. The patient denies having any double vision. The patient presented to the emergency department via triage. The patient came with his mother. The patient states has been compliant with his outpatient medications including Plavix. ROS: See above HPI for pertinent positives & negatives. A total of 10 systems reviewed and were otherwise negative. PAST MEDICAL HISTORY: See Below PAST SURGICAL HISTORY: See Below FAMILY HISTORY: See Below SOCIAL HISTORY: See Below HOME MEDICATIONS: See Below ALLERGIES: See Below VITALS: See Below PHYSICAL EXAMINATION: GENERAL: The patient is awake to verbal commands. He is somewhat somnolent. He is evaluated at the CAT scan. EYES: The conjunctivae are clear. The pupils are round and reactive. There is no nystagmus. EARS, NOSE, MOUTH AND THROAT: The nose is without any evidence of any deformity. NECK: The neck is nontender and supple. RESPIRATORY: Normal respiratory effort is noted there is no evidence of wheezing rhonchi or rales CARDIOVASCULAR: Regular rate and rhythm noted there no murmurs rubs or gallops normal S1 normal S2. GASTROINTESTINAL: The abdomen is soft. Abdomen is nontender. MUSCULOSKELETAL/EXTREMITIES: There is no evidence of gross deformity full range of motion is noted in the hips and shoulders. SKIN: There is no obvious evidence of any rash. There are no petechiae, pallor or cyanosis noted. NEUROLOGIC: Patient is awake and oriented x3. 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 Patient is unable to hold each leg off the bed for greater than 5 seconds. Speech was soft but understandable. MEDICAL DECISION MAKING: The patient is a 53-year-old male who presented to the emergency department from triage for an evaluation of strokelike symptoms. The patient has a history of a stroke in the past. The patient started feeling ill at approximately 1130 this morning. He presented to the emergency department greater than 4 and half hours after his symptoms. The patient was made a stroke alert from triage. I evaluated the patient in CAT scan. The patient does appear to have some change from his baseline neurologic status. I discussed that with his mother who does live with him. I discussed the patient's condition with the telestroke neurologist. The patient is not a candidate for thrombectomy as he was not found to have a large vessel occlusion. I discussed the patient's condition with the on-call [facility] hospitalist. The patient may require further inpatient management and evaluation to determine the cause of the patient's symptoms at this time. Triage Nursing notes reviewed. Prior medical records reviewed Vital Signs: reviewed and remarkable for elevated blood pressure. Differential diagnosis: Infection, dehydration, metabolic abnormality, hypo/hyperglycemia, electrolyte disturbance, anemia, hypoxia, cardiac sources, intracerebral event, toxicologic, neurologic, as well as other pathologies. ER treatment provided: See below Diagnostics interpreted by me: ECG: EKG was obtained in the emergency department. My interpretation is sinus tachycardia at 108 bpm. There was no ectopy. There was no acute ST segment abnormalities noted. This was compared to a tracing from June 06, 2021. No changes were noted. Cardiac Monitoring: An order was placed for continuous cardiac monitoring. The monitor shows a rate of 100 bpm with sinus rhythm. Laboratory studies: As stated above and show below. Imaging studies: See below. Radiographic imaging was reviewed by myself Consultation(s): I discussed this case with Dr. Diamond who is on-call for teleroke neurology. I discussed this case with Dr. Ferrara who is on-call for the [facility] hospitalist group. Past Med/Surg History Problem List (Updated 08/26/24 @ 23:44 by Jerrell Mejia DO) Stroke-like symptoms (Acute) Stroke-like symptom Hypertension (Chronic) Type 2 diabetes mellitus, controlled Mild nonproliferative diabetic retinopathy associated with type 2 diabetes mellitus Diabetic peripheral neuropathy associated with type 2 diabetes mellitus Loss of protective sensation of skin of foot History of CVA (cerebrovascular accident) Hemiparesis affecting right side as late effect of cerebrovascular accident (~12/2019) Impaired gait Vitamin B12 deficiency Dyslipidemia Increased frequency of urination Insomnia Sleep apnea (~2009) CPAP-waiting on a new mask Arthritis Arthralgia of multiple joints Medical History Tremor Medical marijuana use Hx of chest pain 2007, went thru cardiac testing>determined it was from acid reflux History of COVID-19 summer/fall 2021, home test, not hosp; fatigue, sore throat, fever>resolved Diabetic retinopathy being seen by retina specialist TIA (transient ischemic attack) 05/2021, experienced stroke-like effects for 6-8 hours; "they feel he had multiple TIA events prior to his actual stroke, was having stroke like effects" Chronic back pain sees a chiropractor Polyneuropathy Dysarthria Multiple acquired skin tags Atypical nevus of back removed Allergic rhinitis Paresthesia of hand, bilateral Surgical History History of esophagogastroduodenoscopy (EGD) to remove FB History of excision of lesion (09/06/19) Excision of lesion mid back 09/06/19 Dr. Kenney in clinic History of tonsillectomy and adenoidectomy Family History Grandmother (Maternal) Breast cancer Father , age 62 of an NM. Heart disease Myocardial infarction Grandfather (Maternal) Prostate cancer Pancreatic cancer Sister Anxiety Brother Heart disease Mother No problems noted. 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: No Beliefs That Will Affect Care: None marital status: Current Living Situation: Parent and Family Current Living Situation Comment: Lives with mom and older brother current occupational status: employed 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[employer] How many Children do You have: 0 Feels Safe at Home: Yes Childhood Exposure to Second-Hand Smoke: Yes Diet: regular caffeine: Yes Dental Care, Regularly: No Physical Activity Frequency: 3-4 Times per Week Physical Activity Frequency Comment: Signifcant walking at work Seatbelt Use: always Sunscreen Use: No Do you think of yourself as: straight/heterosexual Sexual Activity: has been sexually active within the last 12 months Assistive Devices: Cane, CPAP, Denture - Upper and Glasses Allergies Allergies Allergy/AdvReac Type Severity Reaction Status Date / Time No Known Drug Allergies Allergy Verified 06/28/24 15:07 Home Meds Home Medications Medication Instructions Recorded Confirmed alpha lipoic acid 600 mg capsule 600 mg PO BID 10/25/21 08/26/24 Medical Marijuana 1 dose inhalation HS PRN Anxiety 06/04/22 08/26/24 magnesium oxide 400 mg PO QAM 06/04/22 08/26/24 melatonin 10 mg capsule 10 mg PO HS PRN Sleep 04/22/24 08/26/24 ascorbic acid (vitamin C) 1,000 mg 1,000 mg PO QAM 08/26/24 08/26/24 tablet (Vitamin C) cyanocobalamin (vitamin B-12) 1,000 mcg PO QAM 08/26/24 08/26/24 1,000 mcg tablet (Vitamin B-12) insulin glargine 100 unit/mL (3 10 unit subcut QAM 08/26/24 08/26/24 mL) subcutaneous pen (Lantus Solostar U-100 Insulin) lisinopril 10 mg tablet 10 mg PO QPM 08/26/24 08/26/24 pantoprazole 40 mg tablet,delayed 40 mg PO QAM 08/26/24 08/26/24 release rosuvastatin 10 mg tablet 10 mg PO QAM 08/26/24 08/26/24 semaglutide 2 mg/dose (8 mg/3 mL) 2 mg subcut WK 08/26/24 08/26/24 subcutaneous pen injector (Ozempic) Previous Rx's Medication Instructions Recorded acetaminophen 325 mg tablet 650 mg (2 x 325 mg) PO Q4H PRN 12/29/19 pain #30 tabs OneTouch Delica Lancets 33 gauge #200 ea 09/25/20 (lancets) OneTouch Verio test strips (blood #200 ea 09/25/20 sugar diagnostic) 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 meter (OneTouch #1 ea 09/28/20 Verio IQ Meter kit) Dexcom G6 Sensor (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 #9 ea 03/04/22 sensor) Dexcom G6 Transmitter #1 ea 03/04/22 (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 transmitter) 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,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,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 ea 07/19/22 (Dexcom G7 Industrial [employer]) sildenafil 25 mg tablet (Viagra) 25 mg PO DAILY PRN sexual activity 10/11/22 #14 tabs BD Ultra-Fine Mini Pen Needle 31 #200 ea 05/07/23 gauge x 3/16" (pen needle, diabetic) Dexcom G7 Sensor (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 #9 ea 01/13/24 sensor) metformin 500 mg tablet,extended 1,000 mg (2 x 500 mg) PO BID #360 01/13/24 release 24 hr tabs clopidogrel 75 mg tablet (Plavix) 75 mg PO QAM #90 tabs 03/19/24 baclofen 20 mg tablet 20 mg PO QID #360 tabs 08/19/24 doxepin 75 mg capsule 75 mg PO HS #90 caps 08/19/24 gabapentin 800 mg tablet 800 mg PO QID #360 tabs 08/19/24 Results & Data (ED) Vital Signs Vital Signs - 24 hr 08/26/24 17:54 08/26/24 18:17 08/26/24 18:18 Pulse Rate 115 H 110 H Pulse Rate [Radial] Pulse Rate from SpO2 Sensor Pulse Rhythm Regular Pulse Strength Normal Respiratory Rate 17 15 Respiratory Effort / Characteristics Non-Labored Spontaneous Non-Labored Spontaneous Respiratory Depth Normal Normal Respiratory Pattern Regular Blood Pressure 115/69 Blood Pressure [Left Arm] Blood Pressure Mean 84 Blood Pressure Mean [Left Arm] Blood Pressure Position Sitting Blood Pressure Position [Left Arm] Pulse Oximetry 95 Oxygen Delivery Method Room Air Oxygen Flow Rate Sepsis Recent Fever Within 48 Hours No Sepsis New/Unexplained Change in Mental Status N/A Sepsis Action Taken by Nursing No Action Required 08/26/24 18:18 08/26/24 18:27 08/26/24 18:49 Pulse Rate 108 H 109 H Pulse Rate [Radial] 104 H Pulse Rate from SpO2 Sensor 108 H 109 H Pulse Rhythm Pulse Strength Respiratory Rate 12 13 15 Respiratory Effort / Characteristics Non-Labored Spontaneous Respiratory Depth Normal Respiratory Pattern Blood Pressure Blood Pressure [Left Arm] 123/67 Blood Pressure Mean Blood Pressure Mean [Left Arm] 85 Blood Pressure Position Blood Pressure Position [Left Arm] Pulse Oximetry 91 97 96 Oxygen Delivery Method Room Air Oxygen Flow Rate Sepsis Recent Fever Within 48 Hours Sepsis New/Unexplained Change in Mental Status Sepsis Action Taken by Nursing 08/26/24 19:01 08/26/24 19:15 08/26/24 19:18 Pulse Rate 98 H Pulse Rate [Radial] Pulse Rate from SpO2 Sensor 98 H Pulse Rhythm Pulse Strength Respiratory Rate 18 Respiratory Effort / Characteristics Respiratory Depth Respiratory Pattern Blood Pressure 122/74 128/81 Blood Pressure [Left Arm] Blood Pressure Mean 89 89 Blood Pressure Mean [Left Arm] Blood Pressure Position Blood Pressure Position [Left Arm] Pulse Oximetry 99 Oxygen Delivery Method Oxygen Flow Rate Sepsis Recent Fever Within 48 Hours Sepsis New/Unexplained Change in Mental Status Sepsis Action Taken by Nursing 08/26/24 19:24 08/26/24 19:30 08/26/24 19:30 Pulse Rate 96 H Pulse Rate [Radial] Pulse Rate from SpO2 Sensor 96 H Pulse Rhythm Pulse Strength Respiratory Rate 16 Respiratory Effort / Characteristics Respiratory Depth Respiratory Pattern Blood Pressure 121/83 121/83 Blood Pressure [Left Arm] Blood Pressure Mean 113 113 Blood Pressure Mean [Left Arm] Blood Pressure Position Blood Pressure Position [Left Arm] Pulse Oximetry 99 Oxygen Delivery Method Oxygen Flow Rate Sepsis Recent Fever Within 48 Hours Sepsis New/Unexplained Change in Mental Status Sepsis Action Taken by Nursing 08/26/24 19:30 08/26/24 19:30 08/26/24 19:30 Pulse Rate 97 H Pulse Rate [Radial] Pulse Rate from SpO2 Sensor 95 H Pulse Rhythm Pulse Strength Respiratory Rate 22 Respiratory Effort / Characteristics Respiratory Depth Respiratory Pattern Blood Pressure 121/83 121/83 Blood Pressure [Left Arm] Blood Pressure Mean 113 113 Blood Pressure Mean [Left Arm] Blood Pressure Position Blood Pressure Position [Left Arm] Pulse Oximetry 95 Oxygen Delivery Method Oxygen Flow Rate Sepsis Recent Fever Within 48 Hours Sepsis New/Unexplained Change in Mental Status Sepsis Action Taken by Nursing 08/26/24 19:44 08/26/24 20:00 08/26/24 20:00 Pulse Rate Pulse Rate [Radial] Pulse Rate from SpO2 Sensor Pulse Rhythm Pulse Strength Respiratory Rate Respiratory Effort / Characteristics Non-Labored Non-Labored Respiratory Depth Normal Normal Respiratory Pattern Blood Pressure 129/83 Blood Pressure [Left Arm] Blood Pressure Mean 101 Blood Pressure Mean [Left Arm] Blood Pressure Position Blood Pressure Position [Left Arm] Pulse Oximetry 100 Oxygen Delivery Method Nasal Cannula Oxygen Flow Rate 3 Sepsis Recent Fever Within 48 Hours Sepsis New/Unexplained Change in Mental Status Sepsis Action Taken by Nursing 08/26/24 20:00 08/26/24 20:00 08/26/24 20:12 Pulse Rate 99 H 97 H Pulse Rate [Radial] Pulse Rate from SpO2 Sensor 98 H 97 H Pulse Rhythm Pulse Strength Respiratory Rate 20 22 Respiratory Effort / Characteristics Respiratory Depth Respiratory Pattern Blood Pressure 129/83 Blood Pressure [Left Arm] Blood Pressure Mean 101 Blood Pressure Mean [Left Arm] Blood Pressure Position Blood Pressure Position [Left Arm] Pulse Oximetry 96 100 Oxygen Delivery Method Oxygen Flow Rate Sepsis Recent Fever Within 48 Hours Sepsis New/Unexplained Change in Mental Status Sepsis Action Taken by Nursing 08/26/24 20:35 08/26/24 20:36 08/26/24 22:00 Pulse Rate 97 H 99 H Pulse Rate [Radial] Pulse Rate from SpO2 Sensor 97 H 100 H Pulse Rhythm Pulse Strength Respiratory Rate 15 16 Respiratory Effort / Characteristics Respiratory Depth Respiratory Pattern Blood Pressure 119/76 Blood Pressure [Left Arm] Blood Pressure Mean 90 Blood Pressure Mean [Left Arm] Blood Pressure Position Blood Pressure Position [Left Arm] Pulse Oximetry 98 100 Oxygen Delivery Method Room Air Room Air Oxygen Flow Rate Sepsis Recent Fever Within 48 Hours Sepsis New/Unexplained Change in Mental Status Sepsis Action Taken by Nursing 08/26/24 22:11 08/26/24 22:36 08/26/24 22:54 Pulse Rate 103 H 98 H Pulse Rate [Radial] Pulse Rate from SpO2 Sensor 98 H Pulse Rhythm Pulse Strength Respiratory Rate 15 Respiratory Effort / Characteristics Respiratory Depth Respiratory Pattern Blood Pressure Blood Pressure [Left Arm] Blood Pressure Mean Blood Pressure Mean [Left Arm] Blood Pressure Position Blood Pressure Position [Left Arm] Pulse Oximetry 98 Oxygen Delivery Method Room Air Room Air Oxygen Flow Rate Sepsis Recent Fever Within 48 Hours Sepsis New/Unexplained Change in Mental Status Sepsis Action Taken by Nursing 08/26/24 22:59 Pulse Rate Pulse Rate [Radial] 100 H Pulse Rate from SpO2 Sensor Pulse Rhythm Pulse Strength Respiratory Rate 18 Respiratory Effort / Characteristics Respiratory Depth Respiratory Pattern Blood Pressure Blood Pressure [Left Arm] 155/87 H Blood Pressure Mean Blood Pressure Mean [Left Arm] 109 Blood Pressure Position Blood Pressure Position [Left Arm] Lying Pulse Oximetry 98 Oxygen Delivery Method Room Air Oxygen Flow Rate Sepsis Recent Fever Within 48 Hours Sepsis New/Unexplained Change in Mental Status Sepsis Action Taken by [facility] Medications Current Medication List: was personally reviewed by me Laboratory Data Attestation: I reviewed the patient's lab results. 08/26/24 18:19 08/26/24 18:19 Lab Results 08/26/24 08/26/24 Range/Units 18:17 18:19 WBC 5.90 (4.8-10.8) K/ul RBC 3.86 L (4.70-6.10) M/uL Hgb 11.8 L (14.0-18.0) g/dl Hct 35.5 L (42.0-52.0) % MCV 92.0 (80.0-100.0) fL MCH 30.6 (25.0-34.0) pg MCHC 33.2 (32.0-36.0) g/dL RDW Std Deviation 43.7 (36.4-46.3) fL RDW Coeff of Jennifer 13.0 (11.5-14.5) % Plt Count 122 L (130-400) K/uL MPV 10.0 (9.4-12.4) fL Immature Gran % (Auto) 1.0 % Neut % (Auto) 87.5 % Lymph % (Auto) 4.6 % [place] % (Auto) 5.9 % Eos % (Auto) 0.7 % Baso % (Auto) 0.3 % Neut # (Auto) 5.16 (1.40-6.50) K/uL Lymph # (Auto) 0.27 L (1.20-3.40) K/uL [place] # (Auto) 0.35 (0.11-0.59) K/uL Eos # (Auto) 0.04 (0.00-0.50) K/uL Baso # (Auto) 0.02 (0.00-0.20) K/uL Immature Gran # (Auto) 0.06 (0.01-0.20) K/uL PT 11.3 (9.0-12.0) Seconds INR 1.0 (0.9-1.1) APTT 27 (21-31) Seconds PTT Ratio 1.0 Sodium 138 (136-145) mmol/L Potassium 4.6 (3.5-5.1) mmol/L Chloride 107 (98-107) mmol/L Carbon Dioxide 22 (21-32) mmol/L Anion Gap 9 (3-11) BUN 27 H (6-23) mg/dl Creatinine 1.54 H (0.6-1.4) mg/dl Est Cr Clr Drug Dosing 64.4 ml/min eGFR 53.60 BUN/Creatinine Ratio 17.5 (10-20) Glucose 211 H (70-99(Fasting)) mg/dl POC Glucose 214 H (70-99) mg/dl Calcium 8.5 L (8.6-10.3) mg/dl Magnesium 2.0 (1.7-2.4) mg/dl Total Bilirubin 0.4 (0.2-1.0) mg/dl AST 17 (13-39) U/L ALT 13 (7-52) U/L Alkaline Phosphatase 59 (34-104) U/L Troponin I High Sens 4.9 (0-20) pg/ml Total Protein 6.2 (6.0-8.3) gm/dl Albumin 3.6 (3.4-5.0) gm/dl Globulin 2.6 (2.5-4.0) gm/dl Albumin/Globulin Ratio 1.4 (0.9-2) Ethyl Alcohol mg/dL < 10.0 (<10.0) mg/dl Administered Medications Discontinued Medications Ioversol (Optiray 320 125ml) 119 ml IV ONCE ONE Stop: 08/26/24 18:04 Last Admin: 08/26/24 18:05 Dose: 119 ml Documented By: RY Imaging Data Attestation: I personally reviewed and interpreted this imaging study as follows: My Impression: 1 view chest x-ray was obtained in the emergency department. My interpretation is no free air or definite infiltrate, final report below. CT of the brain was obtained in the emergency department. My interpretation is no intracranial hemorrhage or mass effect, final report below. Radiologist's Impression: Chest X-Ray 08/26/24 17:59 Chest radiograph, one view History: Neurodeficit Comparison: None Findings: Single AP view of the chest performed. No focal consolidation or pleural effusion. No pneumothorax. The cardiomediastinal silhouette is within normal limits. Normal pulmonary vascularity. No evidence for lymphadenopathy. No visualized bony or soft tissue abnormality. Impression: Normal chest radiograph Electronically signed by Channing Velasco 08-26-2024 7:[address] 08/26/24 17:[address] without contrast CT angiogram of the neck CT angiogram of the brain with contrast Provided History: Neuro deficit Comparison: June 06, 2021 Technique: HEAD CT: Using multidetector thin collimation helical acquisition technique, axial, coronal and sagittal CT images from the skull base to the vertex were obtained without intravenous contrast. HEAD and NECK CTA: During rapid bolus intravenous injection of nonionic contrast material, axial images were obtained using thin collimation multidetector helical technique from the base of the neck through the of vertex of the head. This CT angiogram data was reconstructed at thin intervals with mild overlap. 3D reconstructions were obtained. The axial source images, multiplanar reformations, 3D reconstructions in both maximum intensity projection display and volume rendered models were reviewed. Dose reduction techniques were achieved by using automatic exposure control and/or adjustment of mA and/or kV according to patient size and/or use of iterative reconstruction technique. Findings: Head CT: There is no intracranial hemorrhage, mass effect, or midline shift. Damon/white matter differentiation in both cerebral hemispheres is preserved. Ventricles are proportionate to the cerebral sulci. Chronic lacunar infarction in the body of the left caudate nucleus. Head CTA demonstrates no aneurysm or stenosis of the major intracranial arteries. Neck CTA demonstrates no stenosis of the internal carotid or vertebral arteries. There is mild eccentric noncalcified atherosclerotic disease involving the left common carotid artery resulting in mild, less than 25% stenosis for a short segment. The origins of the great vessels from the aortic arch are patent. No mass is noted within the visualized portions of the cervical soft tissues or lung apices. Impression: 1. Head CTA demonstrates no aneurysm or stenosis of the major intracranial arteries, 2. Neck CTA demonstrates no stenosis of the internal carotid or vertebral arteries. Mild stenosis of the left common carotid artery as above. 3. No intracranial hemorrhage on the noncontrast head CT. Chronic lacunar infarct of the left caudate nucleus. Electronically signed by Channing Velasco 08-26-2024 6:22 PM Head CTA 08/26/24 17:[address] without contrast CT angiogram of the neck CT angiogram of the brain with contrast Provided History: Neuro deficit Comparison: June 06, 2021 Technique: HEAD CT: Using multidetector thin collimation helical acquisition technique, axial, coronal and sagittal CT images from the skull base to the vertex were obtained without intravenous contrast. HEAD and NECK CTA: During rapid bolus intravenous injection of nonionic contrast material, axial images were obtained using thin collimation multidetector helical technique from the base of the neck through the of vertex of the head. This CT angiogram data was reconstructed at thin intervals with mild overlap. 3D reconstructions were obtained. The axial source images, multiplanar reformations, 3D reconstructions in both maximum intensity projection display and volume rendered models were reviewed. Dose reduction techniques were achieved by using automatic exposure control and/or adjustment of mA and/or kV according to patient size and/or use of iterative reconstruction technique. Findings: Head CT: There is no intracranial hemorrhage, mass effect, or midline shift. Damon/white matter differentiation in both cerebral hemispheres is preserved. Ventricles are proportionate to the cerebral sulci. Chronic lacunar infarction in the body of the left caudate nucleus. Head CTA demonstrates no aneurysm or stenosis of the major intracranial arteries. Neck CTA demonstrates no stenosis of the internal carotid or vertebral arteries. There is mild eccentric noncalcified atherosclerotic disease involving the left common carotid artery resulting in mild, less than 25% stenosis for a short segment. The origins of the great vessels from the aortic arch are patent. No mass is noted within the visualized portions of the cervical soft tissues or lung apices. Impression: 1. Head CTA demonstrates no aneurysm or stenosis of the major intracranial arteries, 2. Neck CTA demonstrates no stenosis of the internal carotid or vertebral arteries. Mild stenosis of the left common carotid artery as above. 3. No intracranial hemorrhage on the noncontrast head CT. Chronic lacunar infarct of the left caudate nucleus. Electronically signed by Channing Velasco 08-26-2024 6:22 PM Neck CTA 08/26/24 17:[address] without contrast CT angiogram of the neck CT angiogram of the brain with contrast Provided History: Neuro deficit Comparison: June 06, 2021 Technique: HEAD CT: Using multidetector thin collimation helical acquisition technique, axial, coronal and sagittal CT images from the skull base to the vertex were obtained without intravenous contrast. HEAD and NECK CTA: During rapid bolus intravenous injection of nonionic contrast material, axial images were obtained using thin collimation multidetector helical technique from the base of the neck through the of vertex of the head. This CT angiogram data was reconstructed at thin intervals with mild overlap. 3D reconstructions were obtained. The axial source images, multiplanar reformations, 3D reconstructions in both maximum intensity projection display and volume rendered models were reviewed. Dose reduction techniques were achieved by using automatic exposure control and/or adjustment of mA and/or kV according to patient size and/or use of iterative reconstruction technique. Findings: Head CT: There is no intracranial hemorrhage, mass effect, or midline shift. Damon/white matter differentiation in both cerebral hemispheres is preserved. Ventricles are proportionate to the cerebral sulci. Chronic lacunar infarction in the body of the left caudate nucleus. Head CTA demonstrates no aneurysm or stenosis of the major intracranial arteries. Neck CTA demonstrates no stenosis of the internal carotid or vertebral arteries. There is mild eccentric noncalcified atherosclerotic disease involving the left common carotid artery resulting in mild, less than 25% stenosis for a short segment. The origins of the great vessels from the aortic arch are patent. No mass is noted within the visualized portions of the cervical soft tissues or lung apices. Impression: 1. Head CTA demonstrates no aneurysm or stenosis of the major intracranial arteries, 2. Neck CTA demonstrates no stenosis of the internal carotid or vertebral arteries. Mild stenosis of the left common carotid artery as above. 3. No intracranial hemorrhage on the noncontrast head CT. Chronic lacunar infarct of the left caudate nucleus. Electronically signed by Channing Velasco 08-26-2024 6:22 PM Discharge Plan Visit Data Chief Complaint: TIA Symptoms Stated Complaint: HEADACHES, SLURED SPEECH, WEAKNESS ED Provider: Jerrell Mejia Discharge Problem: Stroke-like symptoms Patient Disposition: Admitted As Inpatient Condition: Fair Discharge Instructions Interventions: ED Discharge Assessment Last Done: 08/26/24 22:54 Prescriptions Prescriptions: No Action (DME) lancets [OneTouch Delica Lancets] 33 gauge misc See Rx Instructions .ROUTE .MEDSUPPLY Qty: 200 3RF Rx Instructions: use to test twice daily (DME) OneTouch Verio test strips Strip See Rx Instructions .ROUTE .MEDSUPPLY Qty: 200 3RF Rx Instructions: use to test twice daily (DME) 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 meter [OneTouch Verio IQ Meter] Kit See Rx Instructions .ROUTE .MEDSUPPLY Qty: 1 0RF Rx Instructions: Test twice daily. . dx= uncontrolled T2DM. (DME) Dexcom G6 Sensor Device See Rx Instructions .Route Qty: 9 0RF Hold Instructions: Check on changing to Dexcom G 7 Rx Instructions: Change sensor every 10 days (DME) Dexcom G6 Transmitter Device See Rx Instructions .Route Qty: 1 0RF Hold Instructions: Check on changing to Dexcom G 7 Rx Instructions: Change transmitter every 90 days (DME) Dexcom G7 [employer] Misc See Rx Instructions .Route Qty: 1 0RF Rx Instructions: As directed sildenafil [Viagra] 25 mg tablet 25 mg PO DAILY PRN (Reason: sexual activity) Qty: 14 0RF Rx Instructions: administer 30 minutes to 4 hours before activity (DME) pen needle, diabetic [BD Ultra-Fine Mini Pen Needle] 31 gauge x 3/16" needle See Rx Instructions .ROUTE .MEDSUPPLY Qty: 200 3RF Rx Instructions: use 2 needle daily (DME) Dexcom G7 Sensor Device See Rx Instructions .Route Qty: 9 3RF Rx Instructions: Change every 10 days metformin 500 mg tablet extended release 24 hr 1,000 mg PO BID Qty: 360 2RF Rx Instructions: Take with food. clopidogrel [Plavix] 75 mg tablet 75 mg PO QAM Qty: 90 3RF melatonin 10 mg capsule 10 mg PO HS PRN (Reason: Sleep) doxepin 75 mg capsule 75 mg PO HS Qty: 90 3RF baclofen 20 mg tablet 20 mg PO QID Qty: 360 3RF gabapentin 800 mg tablet 800 mg PO QID Qty: 360 3RF alpha lipoic acid 600 mg capsule 600 mg PO BID acetaminophen 325 mg Tablet 650 mg PO Q4H PRN (Reason: pain) Qty: 30 0RF Medical Marijuana 1 dose inhalation HS PRN (Reason: Anxiety) Rx Instructions: vape pen or tincture magnesium oxide 400 mg magnesium capsule 400 mg PO QAM insulin glargine [Lantus Solostar U-100 Insulin] 100 unit/mL (3 mL) insulin pen 10 unit subcut QAM Ozempic 2 mg/dose (8 mg/3 mL) pen injector 2 mg subcut WK Rx Instructions: sundays pantoprazole 40 mg tablet,delayed release (DR/EC) 40 mg PO QAM lisinopril 10 mg tablet 10 mg PO QPM rosuvastatin 10 mg tablet 10 mg PO QAM ascorbic acid (vitamin C) [Vitamin C] 1,000 mg Tablet 1,000 mg PO QAM cyanocobalamin (vitamin B-12) [Vitamin B-12] 1,000 mcg Tablet 1,000 mcg PO QAM
--- NOTE | 2024-08-26 18:24 | CT Scan Report ---
Head CT without contrast CT angiogram of the neck CT angiogram of the brain with contrast Provided History: Neuro deficit Comparison: June 06, 2021 Technique: HEAD CT: Using multidetector thin collimation helical acquisition technique, axial, coronal and sagittal CT images from the skull base to the vertex were obtained without intravenous contrast. HEAD and NECK CTA: During rapid bolus intravenous injection of nonionic contrast material, axial images were obtained using thin collimation multidetector helical technique from the base of the neck through the of vertex of the head. This CT angiogram data was reconstructed at thin intervals with mild overlap. 3D reconstructions were obtained. The axial source images, multiplanar reformations, 3D reconstructions in both maximum intensity projection display and volume rendered models were reviewed. Dose reduction techniques were achieved by using automatic exposure control and/or adjustment of mA and/or kV according to patient size and/or use of iterative reconstruction technique. Findings: Head CT: There is no intracranial hemorrhage, mass effect, or midline shift. Damon/white matter differentiation in both cerebral hemispheres is preserved. Ventricles are proportionate to the cerebral sulci. Chronic lacunar infarction in the body of the left caudate nucleus. Head CTA demonstrates no aneurysm or stenosis of the major intracranial arteries. Neck CTA demonstrates no stenosis of the internal carotid or vertebral arteries. There is mild eccentric noncalcified atherosclerotic disease involving the left common carotid artery resulting in mild, less than 25% stenosis for a short segment. The origins of the great vessels from the aortic arch are patent. No mass is noted within the visualized portions of the cervical soft tissues or lung apices. Impression: 1. Head CTA demonstrates no aneurysm or stenosis of the major intracranial arteries, 2. Neck CTA demonstrates no stenosis of the internal carotid or vertebral arteries. Mild stenosis of the left common carotid artery as above. 3. No intracranial hemorrhage on the noncontrast head CT. Chronic lacunar infarct of the left caudate nucleus. Electronically signed by Channing Velasco 08-26-2024 6:22 PM
[2024-08-26 18:35] LABS: Hematocrit (blood only) 35.5 % (42.0-52.0); Hemoglobin 11.8 g/dl (14.0-18.0); Immature Granulocytes # (auto) 0.06 K/uL (0.01-0.20); Immature Granulocytes % (auto) 1.0 %; Mean Corpuscular Hemoglobin 30.6 pg (25.0-34.0); Mean Corpuscular Volume 92.0 fL (80.0-100.0); Platelet Count 122 K/uL (130-400); RDW Standard Deviation 43.7 fL (36.4-46.3); Red Blood Count 3.86 M/uL (4.70-6.10); White Blood Count 5.90 K/ul (4.8-10.8)
[2024-08-26 18:53] LABS: Alanine Aminotransferase 13.0 U/L (7-52); Albumin Globulin Ratio 1.4 (0.9-2); Alkaline Phosphatase 59.0 U/L (34-104); Anion Gap 9.0 (3-11); Bilirubin,Total 0.4 mg/dl (0.2-1.0); Blood Urea Nitrogen 27.0 mg/dl (6-23); Calcium 8.5 mg/dl (8.6-10.3); Carbon Dioxide 22.0 mmol/L (21-32); Chloride 107.0 mmol/L (98-107); Creatinine Clr Calc Pharmacy 64.4 ml/min; Globulin 2.6 gm/dl (2.5-4.0); Glucose 211.0 mg/dl (70-99(Fasting)); Magnesium 2.0 mg/dl (1.7-2.4); Potassium 4.6 mmol/L (3.5-5.1); Sodium 138.0 mmol/L (136-145); Total Protein 6.2 gm/dl (6.0-8.3)
[2024-08-26 19:03] LABS: INR 1.0 (0.9-1.1); Partial Thromboplastin Time 27 Seconds (21-31); Prothrombin Time 11.3 Seconds (9.0-12.0)
--- NOTE | 2024-08-26 19:57 | History & Physical Report ---
Date of Service August 26, 2024 Assessment & Plan (1) Stroke-like symptom: (2) Hypertension: (3) Dyslipidemia: (4) Type 2 diabetes mellitus, controlled: Plan 53yo male with HTN, HLP, DM presenting with bilateral LE weakness, dysarthria occurring today around 11:30. His symptoms continue to improve. #Stroke-like symptoms - dysarthria, bilateral LE weakness, atypical for localized lesion but patient reports these symptoms are similar to his prior CVA and TIA. Symptoms continue to improve -Observation to medical with telemetry -Neuro checks and NIHSS per protocol -Check 2D echo with bubble -Check MRI brain -Check Lipid panel and Hgb A1C -Continue Plavix and Crestor -Initiate ASA 81mg po daily for now -PT/OT, Speech therapy appreciated #Muscle spasm -Continue Baclofen 30mg po QID -Continue Gabapentin 800mg po QID #Hypertension -Hold Lisinopril for now, to start 08/27/24 PM -Monitor #Hyperlipidemia -Continue Crestor #DM -Lantus 19u qHS with ISS #GERD -Protonix History of Present Illness Chief Complaint: stroke-like symptoms Primary Care Provider: Amauri Null DO Valentina Fitch is a 53yo male with history of HTN, HLP, DM and prior CVA presenting with stroke-like symptoms. Patient reports experiencing some muscle spasms of his legs and arms ongoing fo the last week. Yesterday he felt cold chills all day. Today patient had some worsening muscle spasms in his legs and arms and developed bilateral LE weakness. Around 11:30 after finishing lunch patient started to use his cane to assist with ambulation. He returned home and was working in his garage when he became acutely weak. His legs gave out and he fell to the ground. No head trauma or LOC. It took him approximately 10 minutes to get up then he needed support to help him walk. He then developed shaking in his hands and some difficulty with speech - speaking slowly with some word finding difficulties. Patient called his mother and they came to the ER. Patient with no additional complaints at this time. He denies fever, chest pain, palpitations, abdominal pain or vomiting. No headache, visual changes or focal deficits at present. He does have frequent nausea but not at present. Patient feels that his is continuing to improve. Patient had a similar constellation of symptoms occur in 2019 when he suffered a prior stroke. He also felt similarly in 2021 when he had a TIA. Patient is compliant with his medications. He is on Plavix. Allergies Allergy/AdvReac Type Severity Reaction Status Date / Time No Known Drug Allergies Allergy Verified 06/28/24 15:07 Home Medications Medication Instructions Recorded Confirmed Type acetaminophen 325 mg tablet 650 mg (2 x 325 mg) PO Q4H PRN 12/29/19 08/26/24 Rx pain #30 tabs OneTouch Delica Lancets 33 gauge #200 ea 09/25/20 08/26/24 Rx (lancets) OneTouch Verio test strips (blood #200 ea 09/25/20 08/26/24 Rx sugar diagnostic) 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 meter (OneTouch #1 ea 09/28/20 08/26/24 Rx Verio IQ Meter kit) alpha lipoic acid 600 mg capsule 600 mg PO BID 10/25/21 08/26/24 History Dexcom G6 Sensor (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 #9 ea 03/04/22 08/26/24 Rx sensor) Dexcom G6 Transmitter #1 ea 03/04/22 08/26/24 Rx (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 transmitter) Medical Marijuana 1 dose inhalation HS PRN Anxiety 06/04/22 08/26/24 History magnesium oxide 400 mg PO QAM 06/04/22 08/26/24 History 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,painter airbrush,cont #1 ea 07/19/22 08/26/24 Rx (Dexcom G7 Refund Clerk) sildenafil 25 mg tablet (Viagra) 25 mg PO DAILY PRN sexual activity 10/11/22 08/26/24 Rx #14 tabs BD Ultra-Fine Mini Pen Needle 31 #200 ea 05/07/23 08/26/24 Rx gauge x 3/16" (pen needle, diabetic) Dexcom G7 Sensor (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 #9 ea 01/13/24 08/26/24 Rx sensor) metformin 500 mg tablet,extended 1,000 mg (2 x 500 mg) PO BID #360 01/13/24 08/26/24 Rx release 24 hr tabs clopidogrel 75 mg tablet (Plavix) 75 mg PO QAM #90 tabs 03/19/24 08/26/24 Rx melatonin 10 mg capsule 10 mg PO HS PRN Sleep 04/22/24 08/26/24 History baclofen 20 mg tablet 20 mg PO QID #360 tabs 08/19/24 08/26/24 Rx doxepin 75 mg capsule 75 mg PO HS #90 caps 08/19/24 08/26/24 Rx gabapentin 800 mg tablet 800 mg PO QID #360 tabs 08/19/24 08/26/24 Rx ascorbic acid (vitamin C) 1,000 mg 1,000 mg PO QAM 08/26/24 08/26/24 History tablet (Vitamin C) cyanocobalamin (vitamin B-12) 1,000 mcg PO QAM 08/26/24 08/26/24 History 1,000 mcg tablet (Vitamin B-12) insulin glargine 100 unit/mL (3 10 unit subcut QAM 08/26/24 08/26/24 History mL) subcutaneous pen (Lantus Solostar U-100 Insulin) lisinopril 10 mg tablet 10 mg PO QPM 08/26/24 08/26/24 History pantoprazole 40 mg tablet,delayed 40 mg PO QAM 08/26/24 08/26/24 History release rosuvastatin 10 mg tablet 10 mg PO QAM 08/26/24 08/26/24 History semaglutide 2 mg/dose (8 mg/3 mL) 2 mg subcut WK 08/26/24 08/26/24 History subcutaneous pen injector (Ozempic) Past Med/Surg History Problem List (Updated 08/26/24 @ 21:41 by Brittney Ferrara DO) Stroke-like symptom Hypertension (Chronic) Type 2 diabetes mellitus, controlled Mild nonproliferative diabetic retinopathy associated with type 2 diabetes mellitus Diabetic peripheral neuropathy associated with type 2 diabetes mellitus Loss of protective sensation of skin of foot History of CVA (cerebrovascular accident) Hemiparesis affecting right side as late effect of cerebrovascular accident (~12/2019) Impaired gait Vitamin B12 deficiency Dyslipidemia Increased frequency of urination Insomnia Sleep apnea (~2009) CPAP-waiting on a new mask Arthritis Arthralgia of multiple joints Medical History Tremor Medical marijuana use Hx of chest pain 2007, went thru cardiac testing>determined it was from acid reflux History of COVID-19 summer/fall 2021, home test, not hosp; fatigue, sore throat, fever>resolved Diabetic retinopathy being seen by retina specialist TIA (transient ischemic attack) 05/2021, experienced stroke-like effects for 6-8 hours; "they feel he had multiple TIA events prior to his actual stroke, was having stroke like effects" Chronic back pain sees a chiropractor Polyneuropathy Dysarthria Multiple acquired skin tags Atypical nevus of back removed Allergic rhinitis Paresthesia of hand, bilateral Surgical History History of esophagogastroduodenoscopy (EGD) to remove FB History of excision of lesion (09/06/19) Excision of lesion mid back 09/06/19 Dr. Kenney in clinic History of tonsillectomy and adenoidectomy Family History Grandmother (Maternal) Breast cancer Father , age 62 of an DE. Heart disease Myocardial infarction Grandfather (Maternal) Prostate cancer Pancreatic cancer Sister Anxiety Brother Heart disease Mother No problems noted. Denies family history of Ovarian cancer Lung cancer Social History Smoking Status: Never smoker Tobacco Type: Cigars Cigarettes Per Day: 1-2 PER WEEK; Second Hand Exposure: Yes; Do You Dip or Chew Tobacco: No; Hx Alcohol Use: Yes Alcohol type: beer and hard liquor Alcohol Intake Frequency Comment: 1-2 per week Hx Substance Use: Yes (MEDICAL CARD) Last Used Substance Other:: FEW TIMES PER WEEK Preferred Language: Tajik Communication Ability: Effective Visual Impairment: Limited Hearing Ability: Normal Pharm Spec Required: No Beliefs That Will Affect Care: None marital status: Current Living Situation: Parent and Family Current Living Situation Comment: Lives with mom and older brother current occupational status: employed current occupation: [employer] How many Children do You have: 0 Feels Safe at Home: Yes Childhood Exposure to Second-Hand Smoke: Yes Diet: regular caffeine: Yes Dental Care, Regularly: No Physical Activity Frequency: 3-4 Times per Week Physical Activity Frequency Comment: Signifcant walking at work Seatbelt Use: always Sunscreen Use: No Do you think of yourself as: straight/heterosexual Sexual Activity: has been sexually active within the last 12 months Assistive Devices: Cane, CPAP, Denture - Upper and Glasses Review of Systems Review of Systems: All systems reviewed & are unremarkable except as noted in HPI & below Physical Exam Physical Exam: General: patient resting comfortably, NAD, non-toxic in appearance, AA&O x 4 Skin: warm, dry, intact, no rashes or lesions HEENT: NC/AT, PERRL, EOMI, anicteric sclera, conjunctiva without injection, external ear normal to inspection and nontender, nares patent, moist mucus membranes, dentition intact, no oropharyngeal lesions, neck supple, trachea midline, no LAD, no thyromegaly, no JVD Heart: +S1/S2, regular, no m/r/g Lungs: equal air entry bilaterally, no rales/rhonchi/wheezes Abd: +BS, soft, NT/ND, no masses/organomegaly/ascites Ext: warm, 2+ pulses in UE/LE bilaterally, no clubbing/cyanosis or edema Neuro: nonfocal, patient AA&O x 4, speech slow but appropriate, no facial droop, moving all extremities on command with equal strength 5/5 Results & Data Results & Data Vital Signs (Past 12 Hours) Vital Signs Pulse Pulse Resp BP BP Pulse Ox O2 Del Method 08/26/24 19:30 97 H 22 95 08/26/24 19:30 121/83 08/26/24 19:30 121/83 08/26/24 19:30 121/83 08/26/24 19:30 121/83 08/26/24 19:24 96 H 16 99 08/26/24 19:18 98 H 18 99 08/26/24 19:15 128/81 08/26/24 19:01 122/74 08/26/24 18:49 104 H 15 123/67 96 Room Air 08/26/24 18:27 109 H 13 97 08/26/24 18:18 108 H 12 91 08/26/24 18:18 15 08/26/24 18:17 110 H 08/26/24 17:54 115 H 17 115/69 95 Room Air Laboratory Results Laboratory Results WBC 5.90 K/ul (4.8-10.8) 08/26/24 18:19 RBC 3.86 M/uL (4.70-6.10) L 08/26/24 18:19 Hgb 11.8 g/dl (14.0-18.0) L 08/26/24 18:19 Hct 35.5 % (42.0-52.0) L 08/26/24 18:19 MCV 92.0 fL (80.0-100.0) 08/26/24 18:19 MCH 30.6 pg (25.0-34.0) 08/26/24 18:19 MCHC 33.2 g/dL (32.0-36.0) 08/26/24 18:19 RDW Std Deviation 43.7 fL (36.4-46.3) 08/26/24 18:19 RDW Coeff of Jennifer 13.0 % (11.5-14.5) 08/26/24 18:19 Plt Count 122 K/uL (130-400) L 08/26/24 18:19 MPV 10.0 fL (9.4-12.4) 08/26/24 18:19 Immature Gran % (Auto) 1.0 % 08/26/24 18:19 Neut % (Auto) 87.5 % 08/26/24 18:19 Lymph % (Auto) 4.6 % 08/26/24 18:19 [place] % (Auto) 5.9 % 08/26/24 18:19 Eos % (Auto) 0.7 % 08/26/24 18:19 Baso % (Auto) 0.3 % 08/26/24 18:19 Neut # (Auto) 5.16 K/uL (1.40-6.50) 08/26/24 18:19 Lymph # (Auto) 0.27 K/uL (1.20-3.40) L 08/26/24 18:19 [place] # (Auto) 0.35 K/uL (0.11-0.59) 08/26/24 18:19 Eos # (Auto) 0.04 K/uL (0.00-0.50) 08/26/24 18:19 Baso # (Auto) 0.02 K/uL (0.00-0.20) 08/26/24 18:19 Immature Gran # (Auto) 0.06 K/uL (0.01-0.20) 08/26/24 18:19 PT 11.3 Seconds (9.0-12.0) 08/26/24 18:19 INR 1.0 (0.9-1.1) 08/26/24 18:19 APTT 27 Seconds (21-31) 08/26/24 18:19 PTT Ratio 1.0 08/26/24 18:19 Sodium 138 mmol/L (136-145) 08/26/24 18:19 Potassium 4.6 mmol/L (3.5-5.1) 08/26/24 18:19 Chloride 107 mmol/L (98-107) 08/26/24 18:19 Carbon Dioxide 22 mmol/L (21-32) 08/26/24 18:19 Anion Gap 9 (3-11) 08/26/24 18:19 BUN 27 mg/dl (6-23) H 08/26/24 18:19 Creatinine 1.54 mg/dl (0.6-1.4) H 08/26/24 18:19 Est Cr Clr Drug Dosing 64.4 ml/min 08/26/24 18:19 eGFR 53.60 08/26/24 18:19 BUN/Creatinine Ratio 17.5 (10-20) 08/26/24 18:19 Glucose 211 mg/dl (70-99(Fasting)) H 08/26/24 18:19 POC Glucose 214 mg/dl (70-99) H 08/26/24 18:17 Calcium 8.5 mg/dl (8.6-10.3) L 08/26/24 18:19 Magnesium 2.0 mg/dl (1.7-2.4) 08/26/24 18:19 Total Bilirubin 0.4 mg/dl (0.2-1.0) 08/26/24 18:19 AST 17 U/L (13-39) 08/26/24 18:19 ALT 13 U/L (7-52) 08/26/24 18:19 Alkaline Phosphatase 59 U/L (34-104) 08/26/24 18:19 Troponin I High Sens 4.9 pg/ml (0-20) 08/26/24 18:19 Total Protein 6.2 gm/dl (6.0-8.3) 08/26/24 18:19 Albumin 3.6 gm/dl (3.4-5.0) 08/26/24 18:19 Globulin 2.6 gm/dl (2.5-4.0) 08/26/24 18:19 Albumin/Globulin Ratio 1.4 (0.9-2) 08/26/24 18:19 Ethyl Alcohol mg/dL < 10.0 mg/dl (<10.0) 08/26/24 18:19 Impressions Chest X-Ray 08/26/24 17:59 Chest radiograph, one view History: Neurodeficit Comparison: None Findings: Single AP view of the chest performed. No focal consolidation or pleural effusion. No pneumothorax. The cardiomediastinal silhouette is within normal limits. Normal pulmonary vascularity. No evidence for lymphadenopathy. No visualized bony or soft tissue abnormality. Impression: Normal chest radiograph Electronically signed by Channing Velasco 08-26-2024 7:[address] 08/26/24 17:[address] without contrast CT angiogram of the neck CT angiogram of the brain with contrast Provided History: Neuro deficit Comparison: June 06, 2021 Technique: HEAD CT: Using multidetector thin collimation helical acquisition technique, axial, coronal and sagittal CT images from the skull base to the vertex were obtained without intravenous contrast. HEAD and NECK CTA: During rapid bolus intravenous injection of nonionic contrast material, axial images were obtained using thin collimation multidetector helical technique from the base of the neck through the of vertex of the head. This CT angiogram data was reconstructed at thin intervals with mild overlap. 3D reconstructions were obtained. The axial source images, multiplanar reformations, 3D reconstructions in both maximum intensity projection display and volume rendered models were reviewed. Dose reduction techniques were achieved by using automatic exposure control and/or adjustment of mA and/or kV according to patient size and/or use of iterative reconstruction technique. Findings: Head CT: There is no intracranial hemorrhage, mass effect, or midline shift. Damon/white matter differentiation in both cerebral hemispheres is preserved. Ventricles are proportionate to the cerebral sulci. Chronic lacunar infarction in the body of the left caudate nucleus. Head CTA demonstrates no aneurysm or stenosis of the major intracranial arteries. Neck CTA demonstrates no stenosis of the internal carotid or vertebral arteries. There is mild eccentric noncalcified atherosclerotic disease involving the left common carotid artery resulting in mild, less than 25% stenosis for a short segment. The origins of the great vessels from the aortic arch are patent. No mass is noted within the visualized portions of the cervical soft tissues or lung apices. Impression: 1. Head CTA demonstrates no aneurysm or stenosis of the major intracranial arteries, 2. Neck CTA demonstrates no stenosis of the internal carotid or vertebral arteries. Mild stenosis of the left common carotid artery as above. 3. No intracranial hemorrhage on the noncontrast head CT. Chronic lacunar infarct of the left caudate nucleus. Electronically signed by Chaninng Velasco 08-26-2024 6:22 PM Head CTA 08/26/24 17:[address] without contrast CT angiogram of the neck CT angiogram of the brain with contrast Provided History: Neuro deficit Comparison: June 06, 2021 Technique: HEAD CT: Using multidetector thin collimation helical acquisition technique, axial, coronal and sagittal CT images from the skull base to the vertex were obtained without intravenous contrast. HEAD and NECK CTA: During rapid bolus intravenous injection of nonionic contrast material, axial images were obtained using thin collimation multidetector helical technique from the base of the neck through the of vertex of the head. This CT angiogram data was reconstructed at thin intervals with mild overlap. 3D reconstructions were obtained. The axial source images, multiplanar reformations, 3D reconstructions in both maximum intensity projection display and volume rendered models were reviewed. Dose reduction techniques were achieved by using automatic exposure control and/or adjustment of mA and/or kV according to patient size and/or use of iterative reconstruction technique. Findings: Head CT: There is no intracranial hemorrhage, mass effect, or midline shift. Damon/white matter differentiation in both cerebral hemispheres is preserved. Ventricles are proportionate to the cerebral sulci. Chronic lacunar infarction in the body of the left caudate nucleus. Head CTA demonstrates no aneurysm or stenosis of the major intracranial arteries. Neck CTA demonstrates no stenosis of the internal carotid or vertebral arteries. There is mild eccentric noncalcified atherosclerotic disease involving the left common carotid artery resulting in mild, less than 25% stenosis for a short segment. The origins of the great vessels from the aortic arch are patent. No mass is noted within the visualized portions of the cervical soft tissues or lung apices. Impression: 1. Head CTA demonstrates no aneurysm or stenosis of the major intracranial arteries, 2. Neck CTA demonstrates no stenosis of the internal carotid or vertebral arteries. Mild stenosis of the left common carotid artery as above. 3. No intracranial hemorrhage on the noncontrast head CT. Chronic lacunar infarct of the left caudate nucleus. Electronically signed by Channing Velasco 08-26-2024 6:22 PM Neck CTA 08/26/24 17:[address] without contrast CT angiogram of the neck CT angiogram of the brain with contrast Provided History: Neuro deficit Comparison: June 06, 2021 Technique: HEAD CT: Using multidetector thin collimation helical acquisition technique, axial, coronal and sagittal CT images from the skull base to the vertex were obtained without intravenous contrast. HEAD and NECK CTA: During rapid bolus intravenous injection of nonionic contrast material, axial images were obtained using thin collimation multidetector helical technique from the base of the neck through the of vertex of the head. This CT angiogram data was reconstructed at thin intervals with mild overlap. 3D reconstructions were obtained. The axial source images, multiplanar reformations, 3D reconstructions in both maximum intensity projection display and volume rendered models were reviewed. Dose reduction techniques were achieved by using automatic exposure control and/or adjustment of mA and/or kV according to patient size and/or use of iterative reconstruction technique. Findings: Head CT: There is no intracranial hemorrhage, mass effect, or midline shift. Damon/white matter differentiation in both cerebral hemispheres is preserved. Ventricles are proportionate to the cerebral sulci. Chronic lacunar infarction in the body of the left caudate nucleus. Head CTA demonstrates no aneurysm or stenosis of the major intracranial arteries. Neck CTA demonstrates no stenosis of the internal carotid or vertebral arteries. There is mild eccentric noncalcified atherosclerotic disease involving the left common carotid artery resulting in mild, less than 25% stenosis for a short segment. The origins of the great vessels from the aortic arch are patent. No mass is noted within the visualized portions of the cervical soft tissues or lung apices. Impression: 1. Head CTA demonstrates no aneurysm or stenosis of the major intracranial arteries, 2. Neck CTA demonstrates no stenosis of the internal carotid or vertebral arteries. Mild stenosis of the left common carotid artery as above. 3. No intracranial hemorrhage on the noncontrast head CT. Chronic lacunar infarct of the left caudate nucleus. Electronically signed by Channing Velasco 08-26-2024 6:22 PM PG Care Time/CCT Total # of Minutes Spent Total Time Spent with Patient: Total time spent is greater than 50% in coordination of care (as documented) at patient's floor/unit and/or counseling patient: Coding Level of Care Code 80133 INT INP/OBS CARE 3/75MIN Diagnoses Stroke-like symptom R29.90 Primary hypertension I10 Hypertension type: primary hypertension Dyslipidemia E78.5 Type 2 diabetes mellitus, controlled E11.9 (2) Hypertension Hypertension type: primary hypertension Qualified Code(s): I10 - Essential (primary) hypertension
[2024-08-26] MEDS ORDERED: GLUCOSE 10 TAB/TUBE PO PRN (23:41)
[2024-08-26] MEDS ORDERED: PHARMACIST DISCHARGE MED REC CONSULT PRN (23:41)
[2024-08-26] MEDS ORDERED: GLUCAGON FOR INJ 1 MG VIAL SQ PRN (23:41)
[2024-08-26] MEDS ORDERED: GLUCOSE 40% GEL 15 GM TUBE PO PRN (23:41)
[2024-08-26] MEDS ORDERED: CARBOHYDRATES FOR HYPOGLYCEMIA PO PRN (23:41)
[2024-08-26] MEDS ORDERED: DEXTROSE 50% 50 ML SYRINGE IV PRN (23:41)
[2024-08-27] MEDS ORDERED: MELATONIN 3 MG TAB PO PRN (00:02)
[2024-08-27] MEDS: LACTATED RINGER'S 1,000 ML IV SCH (00:27)
[2024-08-27] MEDS: GABAPENTIN 800 MG TAB PO SCH (00:30)
[2024-08-27] MEDS: DOXEPIN HCL 75 MG CAPSULE PO SCH (00:30)
[2024-08-27] MEDS ORDERED: ONDANSETRON INJ 2 MG/ML 2 ML VIAL IV PRN (00:30)
[2024-08-27] MEDS: BACLOFEN 20 MG TAB PO SCH (00:30)
[2024-08-27] MEDS: ACETAMINOPHEN 325 MG TAB PO PRN (00:38)
[2024-08-27] MEDS: LACTATED RINGER'S 500 ML IV ONE (00:38)
[2024-08-27 06:09] LABS: Hematocrit (blood only) 36.8 % (42.0-52.0); Hemoglobin 12.1 g/dl (14.0-18.0); Immature Granulocytes # (auto) 0.03 K/uL (0.01-0.20); Immature Granulocytes % (auto) 0.6 %; Mean Corpuscular Hemoglobin 30.0 pg (25.0-34.0); Mean Corpuscular Volume 91.1 fL (80.0-100.0); Platelet Count 128 K/uL (130-400); RDW Standard Deviation 42.3 fL (36.4-46.3); Red Blood Count 4.04 M/uL (4.70-6.10); White Blood Count 4.91 K/ul (4.8-10.8)
[2024-08-27 06:12] VITALS: RESP 18
[2024-08-27 06:27] LABS: Anion Gap 9.0 (3-11); Blood Urea Nitrogen 18.0 mg/dl (6-23); Calcium 8.7 mg/dl (8.6-10.3); Carbon Dioxide 25.0 mmol/L (21-32); Chloride 107.0 mmol/L (98-107); Cholesterol 100.0 mg/dl (0-200); Creatinine Clr Calc Pharmacy 108.0 ml/min; Glucose 129.0 mg/dl (70-99(Fasting)); HDL Cholesterol 29.0 mg/dl; Potassium 4.1 mmol/L (3.5-5.1); Sodium 141.0 mmol/L (136-145); Triglycerides 201.0 mg/dl (0-150)
[2024-08-27 07:25] LABS: Hemoglobin A1C 5.9 % (4.5-5.6)
[2024-08-27] MEDS: LANTUS PER UNIT CHARGE SQ SCH (08:24)
[2024-08-27] MEDS: ROSUVASTATIN CALCIUM 10 MG TAB PO SCH (08:25)
[2024-08-27] MEDS: CLOPIDOGREL BISULFATE 75 MG TAB PO SCH (08:25)
[2024-08-27] MEDS: ASPIRIN 81 MG ECTAB PO SCH (08:25)
--- NOTE | 2024-08-27 08:39 | Electrocardiogram Report ---
Test Reason : Blood Pressure : */* mmHG Vent. Rate : 108 BPM Atrial Rate : 108 BPM P-R Int : 162 ms QRS Dur : 88 ms QT Int : 320 ms P-R-T Axes : -20 3 -6 degrees QTcB Int : 428 ms Sinus tachycardia Cannot rule out Inferior infarct , age undetermined Abnormal ECG When compared with ECG of 06-Jun-2021 17:21, Minimal criteria for Inferior infarct are now Present T wave inversion now evident in Inferior leads Confirmed by Channing Contreras ([id number]) on 08/27/2024 8:39:19 AM Referred By: REFERRED SELF Confirmed By: Channing Contreras
--- NOTE | 2024-08-27 08:46 | Electrocardiogram Report ---
Test Reason : Blood Pressure : */* mmHG Vent. Rate : 118 BPM Atrial Rate : 118 BPM P-R Int : 164 ms QRS Dur : 86 ms QT Int : 290 ms P-R-T Axes : 56 66 5 degrees QTcB Int : 406 ms Sinus tachycardia Otherwise normal ECG When compared with ECG of 26-Aug-2024 18:13, (unconfirmed) Minimal criteria for Inferior infarct are no longer Present Confirmed by Channing Contreras ([id number]) on 08/27/2024 8:45:51 AM Referred By: REFERRED SELF Confirmed By: Channing Contreras
--- NOTE | 2024-08-27 09:17 | Hospitalist Progress Note ---
Date of Service August 27, 2024 Assessment & Plan (1) Stroke-like symptom: (2) Hypertension: (3) Dyslipidemia: (4) Type 2 diabetes mellitus, controlled: Plan 53yo male with HTN, HLP, DM presenting with bilateral LE weakness, dysarthria occurring yesterday around 11:30. His symptoms continue to improve. #Stroke-like symptoms - dysarthria, bilateral LE weakness, atypical for localized lesion but patient reports these symptoms are similar to his prior CVA and TIA. Symptoms continue to improve -Observation to medical with telemetry -Neuro checks and NIHSS per protocol -Check 2D echo with bubble - completed, but not read -Check MRI brain - not completed -Check Lipid panel and Hgb A1C - completed -Continue Plavix and Crestor -Initiate ASA 81mg po daily for now -PT/OT, Speech therapy appreciated > Speech evaluated- no concern for aspiration, Regular diet with esophageal precautions -For patient headache, give Magnesium 1 g IV once (08/27) #Muscle spasm -Continue Baclofen 30mg po QID -Continue Gabapentin 800mg po QID #Hypertension -Hold Lisinopril for now, to start 08/27/24 PM -Monitor #Hyperlipidemia -Continue Crestor -Lipid Panel: Trg 201, Chol 100, LDL 31, HDL 29 #DM -Lantus 19u qHS with ISS -HbgA1C 5.9 #GERD -Protonix Imaging: Chest XRay (08/26): Impression: Normal chest radiograph Head CT (08/26): Impression: 3. No intracranial hemorrhage on the noncontrast head CT. Chronic lacunar infarct of the left caudate nucleus. Head CTA (08/26): Impression: 1. Head CTA demonstrates no aneurysm or stenosis of the major intracranial arteries, Neck CTA (08/26): Impression: 2. Neck CTA demonstrates no stenosis of the internal carotid or vertebral arteries. Mild stenosis of the left common carotid artery as above. Admission and Anticipated Discharge Date Admission Date: August 26, 2024 Supervising Physician Co-Signing Physician Notes ATTESTATION I also saw the patient and confirmed quigley portions of the history and exam. I agree with the impression and plan in the resident documentation, and as summarized below. Patient symptoms largely resolved upon admission and he reports being at baseline this morning. CT head unremarkable; MRI negaitve for acute changes, although does demonstrate sinus thickening consistent with his frontal sinus headache and symptoms. Agree with Augmentin for acute frontal/maxillary sinusitis. He was already on Plavix daily and low dose ASA added upon admission. Continue rosuvastatin. Follow up with PCP. He sees neurology as an outpatient as well. Additional per resident documentation Subjective Patient laying in bed comfortably, in no acute distress. Stated he is feeling better than he was yesterday. He is stilling having some trouble finding words, but his dysarthria is improving per patient. Admits to MCDONALD, cough, and fever last night. Denies CP, SOB, leg weakness, sore throat, ear pain. Review of Systems Review of Systems: All systems reviewed & are unremarkable except as noted in HPI & below Physical Exam Physical Exam: General: patient resting comfortably, no acute distress HEENT: Tender frontal and maxillary sinuses bilaterally on palpation Heart: RRR, normal S1 and S2, no murmurs, gallops, or rubs Lungs: CTA bilaterally, no rhonchi, wheezes, or rales Abd: Bowel sounds in all 4 quadrants, soft, nontender, no heptatosplenomegaly Neuro: CN2-12 intact bilaterally, PERRL, sensation intact in extremities bilaterally, muscle strength 5/5 in extremities bilaterally, no pronator drift. Results & Data Results & Data Vital Signs (Past 12 Hours) Vital Signs Temp Pulse Pulse Pulse Resp BP Pulse Ox 08/27/24 07:46 37.0 C 98 H 18 112/69 95 08/27/24 06:11 37.2 C 108 H 18 113/72 91 08/27/24 00:00 122 H 08/26/24 23:45 38.4 C H 121 H 20 145/91 H 96 08/26/24 22:59 100 H 18 155/87 H 98 08/26/24 22:54 08/26/24 22:36 98 H 15 98 08/26/24 22:11 103 H 08/26/24 22:00 99 H 16 100 O2 Del Method 08/27/24 07:46 Room Air 08/27/24 06:11 Room Air 08/27/24 00:00 08/26/24 23:45 Room Air 08/26/24 22:59 Room Air 08/26/24 22:54 Room Air 08/26/24 22:36 Room Air 08/26/24 22:11 08/26/24 22:00 Room Air (2) Hypertension Hypertension type: primary hypertension Qualified Code(s): I10 - Essential (primary) hypertension
--- NOTE | 2024-08-27 09:20 | XCELERA ---
[id number] \\[email or web address]\[id number]
[2024-08-27] MEDS ORDERED: MAG SULFATE 50% 1GM/2ML VIAL IV STA (10:22)
[2024-08-27] MEDS: MAGNESIUM SULFATE / D5W 1 GM/100 ML BAG IV ONE (10:52)
[2024-08-27] MEDS: GADOBUTROL 65ML VIAL IV ONE ×2 (11:59→12:32)
[2024-08-27 15:46] VITALS: BP 125/76; TEMP 99.5; O2SAT 96
--- NOTE | 2024-08-27 15:48 | Magnetic Resonance Report ---
MRI OF THE BRAIN COMBO CLINICAL HISTORY: Strokelike symptoms. COMPARISON STUDY: CT of the brain dated 08/26/2024. MRI of the brain dated 06/06/2021 TECHNIQUE: MRI of the brain was performed utilizing various T1 and T2-weighted sequences in the axial , sagittal, and coronal planes. Contrast-enhanced sequences were acquired following the administratio n of 10 cc of Gadavist. FINDINGS: Brain parenchyma: There is minimal microangiopathic change. There is no hemorrhage or mass effect. Th ere is no restricted diffusion typical for acute ischemia. There is a chronic lacunar infarct in the left kate radiata, which is unchanged from prior studies. No enhancing mass lesion is identified on the postcontrast images. Damon-white matter differentiation is preserved. No extra-axial fluid collec tion is seen. The cerebellar tonsils are normal in configuration. Ventricles, sulci, and cisterns: Normal in configuration. Pituitary and sella: Unremarkable. Intracranial vasculature: Normal flow voids are maintained at the skull base. Orbits: The bony orbits are grossly intact. Orbital contents are normal in appearance. Sinuses and mastoids: There is moderate mucosal thickening within the ethmoid sinuses. Mild mucosal t hickening is seen within the frontal and sphenoid sinuses. The mastoid air cells are clear. Calvarium: Unremarkable. Cervical cord: Partially visualized cervical spinal cord is normal in morphology and signal intensity . IMPRESSION: Chronic changes as above with no acute intracranial abnormality identified. ACT 112: Negative or not required by law. Electronically signed by: Raphael Raymond M.D. 08/27/2024 3:47 PM
[2024-08-27] MEDS ORDERED: STROKE PATIENT DISCHARGE STA (16:24)
--- NOTE | 2024-08-27 16:25 | Discharge Summary ---
Date of Service August 27, 2024 Admission HPI Per Admitting Provider Valentina Fitch is a 53yo male with history of HTN, HLP, DM and prior CVA presenting with stroke-like symptoms. Patient reports experiencing some muscle spasms of his legs and arms ongoing fo the last week. Yesterday he felt cold chills all day. Today patient had some worsening muscle spasms in his legs and arms and developed bilateral LE weakness. Around 11:30 after finishing lunch patient started to use his cane to assist with ambulation. He returned home and was working in his garage when he became acutely weak. His legs gave out and he fell to the ground. No head trauma or LOC. It took him approximately 10 minutes to get up then he needed support to help him walk. He then developed shaking in his hands and some difficulty with speech - speaking slowly with some word finding difficulties. Patient called his mother and they came to the ER. Patient with no additional complaints at this time. He denies fever, chest pain, palpitations, abdominal pain or vomiting. No headache, visual changes or focal deficits at present. He does have frequent nausea but not at present. Patient feels that his is continuing to improve. Patient had a similar constellation of symptoms occur in 2019 when he suffered a prior stroke. He also felt similarly in 2021 when he had a TIA. Patient is compliant with his medications. He is on Plavix. Principal Diagnosis TIA, sinus infection Discharge Exam General: patient resting comfortably, no acute distress HEENT: Tender frontal and maxillary sinuses bilaterally on palpation, mucus noted a posterior oropharynx Heart: RRR, normal S1 and S2, no murmurs, gallops, or rubs Lungs: CTA bilaterally, no rhonchi, wheezes, or rales Abd: Bowel sounds in all 4 quadrants, soft, nontender, no hepatosplenomegaly Neuro: CN2-12 intact bilaterally, PERRL, sensation intact in extremities bilaterally, muscle strength 5/5 in extremities bilaterally, no pronator drift. Discharge Data Allergies Allergy/AdvReac Type Severity Reaction Status Date / Time No Known Drug Allergies Allergy Verified 06/28/24 15:07 Consultations 08/26/24 19:13 ED Decision to Admit Stat Ordered Studies 08/26/24 17:59 CT angio head w con Stat CT angio neck with con Stat CT head/brain wo con Stat 08/27/24 23:41 MR brain wo/w con Routine Hospital Course (1) Stroke-like symptom: (2) Hypertension: (3) Dyslipidemia: (4) Type 2 diabetes mellitus, controlled: Plan 53yo male with HTN, HLP, DM presenting with bilateral LE weakness, dysarthria occurring yesterday around 11:30. His symptoms continue to improve. #Stroke-like symptoms - dysarthria, bilateral LE weakness, atypical for localized lesion but patient reports these symptoms are similar to his prior CVA and TIA. Symptoms continue to improve -Observation to medical with telemetry -Neuro checks and NIHSS per protocol -Check 2D echo with bubble - completed, Normal EF, no valve or wall changes -Check MRI brain - completed, No acute changes from last imaging -Check Lipid panel and Hgb A1C - completed -Continue Plavix and Crestor -Initiate ASA 81mg po daily for now -PT/OT, Speech therapy appreciated > Speech evaluated- no concern for aspiration, Regular diet with esophageal precautions >PT cleared for ambulation in room without assist, no acute rehab needs -For patient headache, give Magnesium 1 g IV once (08/27) Sinus Infection - Fever overnight which was relieved by tylenol. C/o facial pain, nasal drainage and MCDONALD. - MRI noted mild to moderate mucosal thickening at frontal, ethmoid and maxillary sinuses - Will send Rx for Augmentin 875/125mg x 7 days to pt's pharmacy at discharge with recommended f/u with his PCP #Muscle spasm -Continue Baclofen 30mg po QID -Continue Gabapentin 800mg po QID #Hypertension -Hold Lisinopril for now, to start 08/27/24 PM -Monitor #Hyperlipidemia -Continue Crestor -Lipid Panel: Trg 201, Chol 100, LDL 31, HDL 29 #DM -Lantus 19u qHS with ISS -HbgA1C 5.9 #GERD -Protonix Total Time Total Time Spent Total Time Spent (In Minutes): I spent 30 mins seeing the patient, reviewing imaging and labs, and documenting. Discharge Plan Discharge Items Patient Disposition: Home - Self-Care Reason For Visit: STROKE-LIKE SYMPTOMS Discharge Diagnosis: TIA, sinus infection Condition on Discharge: Fair Activity: Resume your previous activity Non-emergency contact: Primary Care Provider Call non-emergency contact if: your symptoms worsen Follow-up/Referrals: Amauri Null, [Primary Care Provider] - Diet: Carb Consistent or DM2 Addtl Attending Provider Instructions: You were admitted for stroke-like symptoms that have resolved. All of your brain imaging does not show any new findings of stroke at this time. Therefore, you likely suffered a mini-stroke, known as a TIA. You are already taking the recommended medications to reduce your risk of stroke including Plavix and rosuvastatin. We recommend adding an 81mg aspirin. You were found to have a fever last night, along with your symptoms of nasal congestion, headache and facial pain. The brain MRI incidentally showed mucus build up in your sinuses. For a sinus infection, we are sending the follow antibiotic to your pharmacy: Augmentin 875/125mg- take twice daily for 7 days Please follow up with your Primary care physician in 5-7 days to reassess your sinus infection and review your hospital admission records. Thank you for allowing us to be apart of your health care. Pending Studies at Discharge: No Stand-Alone Forms: My [facility], Smoking Cessation, Medications to Prevent Stroke Medications and DC Order Prescriptions: New aspirin 81 mg Tablet,Delayed Release (Dr/Ec) 81 mg PO QAM Qty: 30 0RF amoxicillin-pot clavulanate 875-125 mg tablet 1 tab PO BID 7 Days Qty: 14 0RF Continued (DME) lancets [OneTouch Delica Lancets] 33 gauge misc See Rx Instructions .ROUTE .MEDSUPPLY Qty: 200 3RF Rx Instructions: use to test twice daily (DME) OneTouch Verio test strips Strip See Rx Instructions .ROUTE .MEDSUPPLY Qty: 200 3RF Rx Instructions: use to test twice daily (DME) 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 meter [OneTouch Verio IQ Meter] Kit See Rx Instructions .ROUTE .MEDSUPPLY Qty: 1 0RF Rx Instructions: Test twice daily. . dx= uncontrolled T2DM. (DME) Dexcom G6 Sensor Device See Rx Instructions .Route Qty: 9 0RF Hold Instructions: Check on changing to Dexcom G 7 Rx Instructions: Change sensor every 10 days (DME) Dexcom G6 Transmitter Device See Rx Instructions .Route Qty: 1 0RF Hold Instructions: Check on changing to Dexcom G 7 Rx Instructions: Change transmitter every 90 days (DME) Dexcom G7 Rug Weaver Misc See Rx Instructions .Route Qty: 1 0RF Rx Instructions: As directed sildenafil [Viagra] 25 mg tablet 25 mg PO DAILY PRN (Reason: sexual activity) Qty: 14 0RF Rx Instructions: administer 30 minutes to 4 hours before activity (DME) pen needle, diabetic [BD Ultra-Fine Mini Pen Needle] 31 gauge x 3/16" needle See Rx Instructions .ROUTE .MEDSUPPLY Qty: 200 3RF Rx Instructions: use 2 needle daily (DME) Dexcom G7 Sensor Device See Rx Instructions .Route Qty: 9 3RF Rx Instructions: Change every 10 days metformin 500 mg tablet extended release 24 hr 1,000 mg PO BID Qty: 360 2RF Rx Instructions: Take with food. clopidogrel [Plavix] 75 mg tablet 75 mg PO QAM Qty: 90 3RF melatonin 10 mg capsule 10 mg PO HS PRN (Reason: Sleep) doxepin 75 mg capsule 75 mg PO HS Qty: 90 3RF baclofen 20 mg tablet 20 mg PO QID Qty: 360 3RF gabapentin 800 mg tablet 800 mg PO QID Qty: 360 3RF alpha lipoic acid 600 mg capsule 600 mg PO BID acetaminophen 325 mg Tablet 650 mg PO Q4H PRN (Reason: pain) Qty: 30 0RF Medical Marijuana 1 dose inhalation HS PRN (Reason: Anxiety) Rx Instructions: vape pen or tincture magnesium oxide 400 mg magnesium capsule 400 mg PO QAM insulin glargine [Lantus Solostar U-100 Insulin] 100 unit/mL (3 mL) insulin pen 10 unit subcut QAM Ozempic 2 mg/dose (8 mg/3 mL) pen injector 2 mg subcut WK Rx Instructions: sundays pantoprazole 40 mg tablet,delayed release (DR/EC) 40 mg PO QAM lisinopril 10 mg tablet 10 mg PO QPM rosuvastatin 10 mg tablet 10 mg PO QAM ascorbic acid (vitamin C) [Vitamin C] 1,000 mg Tablet 1,000 mg PO QAM cyanocobalamin (vitamin B-12) [Vitamin B-12] 1,000 mcg Tablet 1,000 mcg PO QAM Discharge Orders: Discharge Order (Routine); Ordered 08/27/24 Ordered By: Georgina Arreaga Admission Data Admit Date/Time: 08/26/24 21:59 Attending Provider: Julio C Cortez Admit Provider: Brittney Ferrara Primary Care Provider: Amauri Null Other Providers: Brittney Ferrara Supervising Physician Co-Signing Physician Notes ATTESTATION I also saw the patient and confirmed quigley portions of the history and exam. I agree with the impression and plan in the resident documentation, and as summarized below. Patient symptoms largely resolved upon admission and he reports being at baseline this morning. CT head unremarkable; MRI negaitve for acute changes, although does demonstrate sinus thickening consistent with his frontal sinus headache and symptoms. Agree with Augmentin for acute frontal/maxillary sinusitis. He was already on Plavix daily and low dose ASA added upon admission. Continue rosuvastatin. Follow up with PCP. He sees neurology as an outpatient as well. Additional per resident documentation
[2024-08-27 17:09] VITALS: PULSE 108
--- NOTE | 2024-08-30 14:18 | Pharmacy Report ---
Pharmacist Stroke Counseling - Date of Service August 30, 2024 - Scope: Pharmacy has been consulted to provide medication discharge counseling for this patient admitted with [ischemic stroke] [hemorrhagic stroke] [transient ischemic attack] as per the Pharmacist Discharge Counseling for Stroke Patients Rayne deleon - Medications on Discharge: Home Medications Medication Instructions Recorded Confirmed alpha lipoic acid 600 mg capsule 600 mg PO BID 10/25/21 08/30/24 Medical Marijuana 1 dose inhalation HS PRN Anxiety 06/04/22 08/30/24 magnesium oxide 400 mg PO QAM 06/04/22 08/30/24 melatonin 10 mg capsule 10 mg PO HS PRN Sleep 04/22/24 08/30/24 ascorbic acid (vitamin C) 1,000 mg 1,000 mg PO QAM 08/26/24 08/30/24 tablet (Vitamin C) cyanocobalamin (vitamin B-12) 1,000 mcg PO QAM 08/26/24 08/30/24 1,000 mcg tablet (Vitamin B-12) insulin glargine 100 unit/mL (3 10 unit subcut QAM 08/26/24 08/30/24 mL) subcutaneous pen (Lantus Solostar U-100 Insulin) lisinopril 10 mg tablet 10 mg PO QPM 08/26/24 08/30/24 pantoprazole 40 mg tablet,delayed 40 mg PO QAM 08/26/24 08/30/24 release rosuvastatin 10 mg tablet 10 mg PO QAM 08/26/24 08/30/24 semaglutide 2 mg/dose (8 mg/3 mL) 2 mg subcut WK 08/26/24 08/30/24 subcutaneous pen injector (Ozempic) Medication Instructions Recorded acetaminophen 325 mg tablet 650 mg (2 x 325 mg) PO Q4H PRN 12/29/19 pain #30 tabs OneTouch Delica Lancets 33 gauge #200 ea 09/25/20 (lancets) OneTouch Verio test strips (blood #200 ea 09/25/20 sugar diagnostic) 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 meter (OneTouch #1 ea 09/28/20 Verio IQ Meter kit) Dexcom G6 Sensor (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 #9 ea 03/04/22 sensor) Dexcom G6 Transmitter #1 ea 03/04/22 (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 transmitter) 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,milk receiver tank truck,cont #1 ea 07/19/22 (Dexcom G7 Core Piler) sildenafil 25 mg tablet (Viagra) 25 mg PO DAILY PRN sexual activity 10/11/22 #14 tabs BD Ultra-Fine Mini Pen Needle 31 #200 ea 05/07/23 gauge x 3/16" (pen needle, diabetic) Dexcom G7 Sensor (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 #9 ea 01/13/24 sensor) metformin 500 mg tablet,extended 1,000 mg (2 x 500 mg) PO BID #360 01/13/24 release 24 hr tabs clopidogrel 75 mg tablet (Plavix) 75 mg PO QAM #90 tabs 03/19/24 baclofen 20 mg tablet 20 mg PO QID #360 tabs 08/19/24 doxepin 75 mg capsule 75 mg PO HS #90 caps 08/19/24 gabapentin 800 mg tablet 800 mg PO QID #360 tabs 08/19/24 amoxicillin 875 mg-potassium 1 tab PO BID 7 days #14 tabs 08/27/24 clavulanate 125 mg tablet aspirin 81 mg tablet,delayed 81 mg PO QAM #30 tabs 08/27/24 release - Action: The above medications, specifically ones for stroke treatment/prophylaxis, have been reviewed in detail with the patient and/or patient apprenticeship training representative(s) prior to discharge. This includes indication, common adverse reactions, drug interactions, and medication administration. Medication counseling has been employed using the teach-back method to ensure understanding. - Outcome: The patient and/or patient apprenticeship training representative(s) have demonstrated understanding of the medications. Additional comments: Discussed with patient new medications on discharge. He reports being on aspirin before in the past. Patient reports he needs to set up appt with PCP still, but aware to bring updated med list with him to the appt. No other pertinent positives on interview today. Thank you for allowing pharmacy to be involved in the care of this patient. Please call [phone] with any additional questions
== END 2024-08-27 17:50 | disposition home or self-care (01) ==
LOC: 4W 17:52 → ED 17:52 → SUATTDRO 21:59 → 4W 22:54